=== PATIENT | female | born 1935 | race Caucasian/White ===

== ENCOUNTER → 2016-09-03 | Outpatient (CLI) | payer BC, OTHER ==
[~2016-09-03] MED LIST: GLC5 PO; IBUP-103 PO; PIOG1TAB23 PO; POTA1CAP2 PO; PRAV40TA2 PO; TRIA37.5 PO
[2016-09-03 14:01] LABS: ESTIMATED AVERAGE GLUCOSE 131 mg/dl; HA1C FLAG Normal (Normal)
[2016-09-03 16:33] LABS: ALT/SGPT 17 U/L (12-78); BLOOD UREA NITROGEN 25 mg/dl (7-18); BUN/CREATININE RATIO 20.5 (10-20); CALCIUM 9.4 mg/dl (8.5-10.1); CARBON DIOXIDE 27 mmol/L (21-32); CHLORIDE 105 mmol/L (98-107); CHOLESTEROL 170 mg/dl (0-200); GLUCOSE 118 mg/dl (70-99); POTASSIUM 3.7 mmol/L (3.5-5.1); SODIUM 142 mmol/L (136-145); TRIGLYCERIDES 98 mg/dl (0-150); VERY LOW DENSITY LIPOPROT CALC 20 mg/dl
[2016-09-03 16:38] LABS: ALB/GLOB RATIO 1.1 (0.9-2); ALKALINE PHOSPHATASE 47 U/L (45-117); AST/SGOT 14 U/L (15-37); CHOLESTEROL/HDL RATIO 2.4; HDL CHOLESTEROL 72 mg/dl
[2016-09-03 17:58] LABS: RATIO 13.8 mcg/mg (0-30.0)
== END | disposition home or self-care (01) ==
LOC: C.LABSPEC 12:34
PROVIDERS: ATTEND Internal Medicine
DX: I10 Essential (primary) hypertension (principal); E78.5 Hyperlipidemia, unspecified; E11.9 Type 2 diabetes mellitus without complications; E03.9 Hypothyroidism, unspecified; E55.9 Vitamin D deficiency, unspecified

== ENCOUNTER → 2016-09-04 | Outpatient (CLI) | payer BC, OTHER | END | disposition home or self-care (01) | LOC: C.LABSPEC 12:29 | PROVIDERS: ATTEND Internal Medicine | DX: Z12.11 Encounter for screening for malignant neoplasm of colon (principal) ==

== ENCOUNTER → 2017-03-04 | Outpatient (CLI) | payer BC, OTHER ==
[2017-03-04 13:53] LABS: BLOOD UREA NITROGEN 26 mg/dl (7-18); BUN/CREATININE RATIO 21.3 (10-20); CALCIUM 9.2 mg/dl (8.5-10.1); CARBON DIOXIDE 28 mmol/L (21-32); CHLORIDE 106 mmol/L (98-107); CHOLESTEROL 172 mg/dl (0-200); GLUCOSE 84 mg/dl (70-99); SODIUM 140 mmol/L (136-145)
[2017-03-04 13:57] LABS: CHOLESTEROL/HDL RATIO 2.6; HDL CHOLESTEROL 67 mg/dl; TRIGLYCERIDES 89 mg/dl (0-150); VERY LOW DENSITY LIPOPROT CALC 18 mg/dl
[2017-03-04 14:04] LABS: ESTIMATED AVERAGE GLUCOSE 128 mg/dl; HA1C FLAG Normal (Normal)
== END | disposition home or self-care (01) ==
LOC: C.LABSPEC 12:18
PROVIDERS: ATTEND Internal Medicine
DX: E11.9 Type 2 diabetes mellitus without complications (principal); E78.5 Hyperlipidemia, unspecified; I10 Essential (primary) hypertension

== ENCOUNTER → 2017-06-21 | Outpatient (CLI) | payer BC, OTHER ==
--- NOTE | 2017-06-21 15:38 | MAMMOGRAPHY REPORT ---
BILATERAL DIGITAL SCREENING MAMMOGRAM WITH CAD: 06/21/2017 CLINICAL HISTORY: Routine screening. Patient has no complaints. TECHNIQUE: Current study was also evaluated with a Computer Aided Detection (CAD) system. Bilateral CC and MLO views were obtained. COMPARISON: Comparison is made to exams dated: 06/18/2016 mammogram, 06/16/2015 mammogram, 04/19/2014 mammogram, 04/17/2013 mammogram, 04/16/2012 mammogram, and 04/11/2011 mammogram - [facility]. BREAST COMPOSITION: There are scattered areas of fibroglandular density in both breasts. FINDINGS: No suspicious masses, calcifications, or areas of architectural distortion are noted in ei ther breast. There has been no significant interval change compared to prior exams. Bilateral benign -appearing calcifications are not significantly changed. IMPRESSION: ACR BI-RADS CATEGORY 2: BENIGN There is no mammographic evidence of malignancy. A 1 year screening mammogram is recommended. The pa tient will receive written notification of the results. Approximately 10% of breast cancers are not detected with mammography. A negative mammographic report should not delay biopsy if a clinically suggestive mass is present. Tea Petersen M.D. /:06/21/2017 12:07:20 Social Professionals: Lisseth RODRIGUEZ(Louie)([place])([place]), [facility] letter sent: Normal 1/2 BI-RADS Code: ACR BI-RADS Category 2: Benign
== END | disposition home or self-care (01) ==
LOC: C.MAMM 09:52
PROVIDERS: ATTEND Internal Medicine
DX: Z12.31 Encounter for screening mammogram for malignant neoplasm of breast (principal)

== ENCOUNTER → 2017-09-04 | Outpatient (CLI) | payer BC, OTHER ==
[2017-09-18 15:34] LABS: FECAL OCCULT BLOOD #1 NEGATIVE (NEGATIVE); FECAL OCCULT BLOOD #2 NEGATIVE (NEGATIVE); FECAL OCCULT BLOOD #3 NEGATIVE (NEGATIVE)
== END | disposition home or self-care (01) ==
LOC: C.LABSPEC 15:08
PROVIDERS: ATTEND Internal Medicine
DX: Z12.11 Encounter for screening for malignant neoplasm of colon (principal)

== ENCOUNTER → 2017-09-04 | Outpatient (CLI) | payer BC, OTHER ==
[2017-09-04 13:16] LABS: BASO % 0.3 %; BASO ABS # 0.02 K/uL (0-0.2); EOS % 1.9 %; EOS ABS # 0.13 K/uL (0-0.5); HEMATOCRIT 39.2 % (37-47); HEMOGLOBIN 12.7 g/dL (12.0-16.0); IG# 0.02 K/uL (0.00-0.02); LYMPH % 26.6 %; MEAN CELL VOLUME 93.3 fL (80-100); MEAN CORPUSCULAR HEMOGLOBIN 30.2 pg (25-34); MEAN CORPUSCULAR HGB CONC 32.4 g/dl (32-36); MEAN PLATELET VOLUME 10.5 fL (7.4-10.4); MONO % 8.7 %; MONO ABS # 0.59 K/uL (0.11-0.59); NEUT % 62.2 %; NEUT ABS # 4.21 K/uL (1.4-6.5); PLATELET COUNT 225 K/uL (130-400); RED CELL DISTRIBUTION WIDTH CV 15.1 % (11.5-14.5); RED CELL DISTRIBUTION WIDTH SD 51.9 fL (36.4-46.3); WHITE BLOOD COUNT 6.77 K/uL (4.8-10.8)
[2017-09-04 13:17] LABS: HEMOGLOBIN A1C 5.9 % (4.5-5.6)
[2017-09-04 13:49] LABS: ALBUMIN 3.7 gm/dl (3.4-5.0); ALT/SGPT 17 U/L (12-78); AST/SGOT 16 U/L (15-37); BLOOD UREA NITROGEN 22 mg/dl (7-18); CALCIUM 9.3 mg/dl (8.5-10.1); CARBON DIOXIDE 28 mmol/L (21-32); CHOLESTEROL 169 mg/dl (0-200); CREATININE 1.21 mg/dl (0.60-1.20); GLUCOSE 107 mg/dl (70-99); POTASSIUM 3.6 mmol/L (3.5-5.1); SODIUM 139 mmol/L (136-145)
[2017-09-04 13:57] LABS: ALKALINE PHOSPHATASE 47 U/L (45-117); LDL CHOLESTEROL (DIRECT) 91 mg/dl; TOTAL PROTEIN 7.6 gm/dl (6.4-8.2)
--- NOTE | 2017-09-11 10:24 | CODING QUERY NO DIAGNOSIS ---
: 1935 TREATMENT RENDERED WITHOUT A DIAGNOSIS To promote full compliance with coding requirements relating to patient care, physician participation is requested in all cases of region manager uncertainty. Please assist us with providing a diagnosis/symptom for the test(s) below: A diagnosis/symptom was not documented on your Order. A valid diagnosis/symptom is required to bill all insurances. Please remember that we are unable to code a diagnosis of rule out, probable, possible, questionable, or suspected. Tests that require a diagnosis: DOS: 09/04/17 * HEMOGLOBIN A1C DIAGNOSIS: * COMPREHENSIVE METABOLIC PANEL DIAGNOSIS: * LDL DIRECT DIAGNOSIS: * LIPID PROFILE FASTING DIAGNOSIS: * T4 FREE DIAGNOSIS: * THYROID STIMULATING HORMONE DIAGNOSIS: * CBC WITH AUTO DIFFERENTIAL DIAGNOSIS: * MICROALBUMIN/CREAT RATIO DIAGNOSIS: Provider Signature: Date: Thank you Lorena Ivory [employer] Information Management Once completed, please kindly fax back to [phone] For questions please call [phone]
== END | disposition home or self-care (01) ==
LOC: C.LABSPEC 12:26
PROVIDERS: ATTEND Internal Medicine
DX: E11.9 Type 2 diabetes mellitus without complications (principal); I10 Essential (primary) hypertension; E78.5 Hyperlipidemia, unspecified; E03.9 Hypothyroidism, unspecified

== ENCOUNTER → 2018-03-04 | Outpatient (CLI) | payer BC, OTHER ==
[2018-03-04 16:06] LABS: BLOOD UREA NITROGEN 24 mg/dl (7-18); CALCIUM 9.6 mg/dl (8.5-10.1); CARBON DIOXIDE 28 mmol/L (21-32); CHOLESTEROL 158 mg/dl (0-200); CREATININE 1.12 mg/dl (0.60-1.20); GLUCOSE 77 mg/dl (70-99); LDL CHOLESTEROL CALCULATED 76 mg/dl; POTASSIUM 3.8 mmol/L (3.5-5.1); SODIUM 139 mmol/L (136-145)
[2018-03-05 07:24] LABS: HEMOGLOBIN A1C 6.3 % (4.5-5.6)
== END | disposition home or self-care (01) ==
LOC: C.LABSPEC 10:30
PROVIDERS: ATTEND Internal Medicine
DX: I10 Essential (primary) hypertension (principal); E11.9 Type 2 diabetes mellitus without complications; E78.5 Hyperlipidemia, unspecified; E03.9 Hypothyroidism, unspecified

== ENCOUNTER 2023-08-25 14:34 | Inpatient (IN) ==
--- OUTSIDE RECORDS SUMMARY | 2023-08-25 14:39 | External Medical Summary | Continuity of Care Document ---
Author Name Unknown Organization [facility] [address] [facility] Address [address] [place], [place] [id number] Care Team Providers Care Poultry Inspector Name Role Phone Lisseth Mensah Primary Care Physician [id number] [id number] Date(s): 03/01/23 - 03/01/23 [facility] [address], [address] [place] [address] [phone] Encounter Diagnosis Type 2 diabetes, HbA1C goal < 8%(Discharge Diagnosis) - 03/01/23 Chronic kidney disease, stage 3a(Discharge Diagnosis) - 03/01/23 HTN (hypertension)(Discharge Diagnosis) - 03/01/23 Chronic constipation(Discharge Diagnosis) - 03/01/23 Adult hypothyroidism(Discharge Diagnosis) - 03/01/23 Hypothyroidism, unspecified(Final) - Discharge Disposition: Home or Self Care Attending Physician: MD Mensah Amy L Referring Physician: MD Mensah Amy L Allergies, Adverse Reactions, Alerts Substance Reaction Severity Status meclizine EXTREME DROWZINESS Active Assessment and Plan Extracted from: Title:Office Visit Note Author:MD Mensah Amy L D ate:03/01/23 1.Type 2 diabetes, HbA1C g oal < 8% Status : chronic, well-controlled. Data : diet & glucometers reviewed. Goal : maintain normal blood sugars. Plan : reviewed her [id number] was 6.8% & we discussed that our goal is to keep it under 8%.Continue same meds, for now, to avoid making too many changes at once. However, consider getting her off of glitazone at some point. 2.Adult hypothyroidism Status : chronic, stable. Data : sx reviewed. Goal : maintain euthyroid state. Plan : her dose was increased, based on lastTSH being too high. She is now [id number] dose, will recheck TSH &adjust meds further, if necessary. 3.HTN (hypertension) Status : chronic, uncontrolled. Data : BP readings reviewed. Goal : maintain normal BP. Plan : unclear why pt did not take her morning dose of herBP meds. Her BP did come down slightly during her visit. Urged her to take her BP meds faithfully every morning. Return in 3 months for recheck. 4.Chronic constipation STATUS : chronic, stable. DATA : hx & exam reviewed. GOAL : restore normal stooling pattern. PLAN: discussed chronic constipation & reassured that color changes are unlikely to be of concern. Continue high fiber diet to try to drink more water. 5.Chronic kidney disease, stage 3a STATUS: Chronic, renal functionrelatively stable. DATA: hx & labs reviewed. GOAL: Maintain renal stability. PLAN: Cont to encourage drinking fluids & current lab monitoring. Return in 3 months. Time:Total time spent with this patient on day of evaluation including chart review, ordering, education and coordination of care elements: _37 minutes Immunizations Given and Recorded Vaccine Date Status Refusal Reason influenza virus vaccine, inactivated 07/13/22 Give n pneumococcal 20-valent conjugate vaccine 07/13/22 Given Medications aspirin 81 mg oral tablet Start: 04/18/18 14:21:00 EDT, 1 tab, PO, Daily Start Date: 04/18/18 Status: Ordered docusate sodium 100 mg oral capsule Start: 10/29/22 15:55:00 EDT, 1 cap, PO, bid, Disp# 180 cap, Refills: 1, PRN: as needed for constipation, [facility]acy: [id number] Start Date: 10/29/22 Status: Ordered glipiZIDE 2.5 mg oral tablet, extended release Start: 10/31/22 17:15:00 EDT, 1 tab, PO, Daily, Disp# 90 tab, Refills: 3, [facility]: [id number] Start Date: 10/31/22 Status: Ordered hydroCHLOROthiazide-triamterene 25 mg-37.5 mg oral capsule Start: 12/11/22 17:17:00 EDT, See Instructions, Disp# 90 cap, Refills: 1, take 1 capsule by mouth once daily, Pharmacy: [facility] #[id number] Start Date: 12/11/22 Status: Ordered levothyroxine 88 mcg (0.088 mg) oral tablet Start: 02/28/23 10:43:00 EDT, 1 tab, PO, Daily, Disp# 90 tab, Refills: 0, Pharmacy: [facility] #[id number] Start Date: 02/28/23 Stop Date: 05/29/23 Status: Ordered meclizine 12.5 mg oral tablet Start: 10/29/22 16:04:00 EDT, 1 tab, PO, tid, Disp# 60 tab, Refills: 1, PRN: as needed for dizziness, Pharmacy: [facility] #[id number] Start Date: 10/29/22 Status: Ordered Metoprolol Tartrate 50 mg oral tablet Start: 05/24/22 19:39:00 EDT, 1 tab, PO, bid, Disp# 180 tab, Refills: 1, Pharmacy: [facility] #[id number] Start Date: 05/24/22 Status: Ordered multivitamin Start: 04/18/18 14:22:00 EDT, 1 tab, PO, Daily Start Date: 04/18/18 Status: Ordered pioglitazone 30 mg oral tablet Start: 02/20/23 13:57:00 EDT, 1 tab, PO, Daily, Disp# 30 tab, Refills: 3, Pharmacy: [facility] #[id number] Start Date: 02/20/23 Status: Ordered potassium chloride 10 mEq oral capsule, extended release Start: 07/04/22 10:49:00 EST, 2 cap, PO, Daily, Disp# 180 cap, Refills: 1, Pharmacy: [facility] #[id number] Start Date: 07/04/22 Status: Ordered pravastatin 40 mg oral tablet Start: 09/12/22 16:54:00 EST, 1 tab, PO, Daily, Disp# 90 tab, Refills: 3, Pharmacy: [facility] #[id number] Start Date: 09/12/22 Status: Ordered timolol maleate 0.25% ophthalmic solution Start: 04/18/18 14:21:00 EDT, 1 drop, both eyes, Daily Start Date: 04/18/18 Status: Ordered Mental Status 03/01/23 Barriers to Learning one year None evide nt Mandatory Health Literacy Documentation Yes Health Literacy Communication Barriers N ever Primary Language Georgian Problem List Condition Confirmation Course Effective Dates Status Health St atus Informant Caregiver stress Confirmed Active Chronic constipation Confirmed Active Chronic kidney disease, stage 3a 1 Confirmed Active Dizziness Confirmed Active Dyslipidemia Confirmed Active Dysphagia Confirmed Active History of urinary incontinence Confirmed Active HTN (hypertension) Confirmed Active Abnormal mammogram Confirmed Active Diabetic neuropathy Confirmed Active Annual physical exam Confirmed Active Skin lesion Confirmed Active Type 2 diabetes, HbA1C goal < 8% Confirmed Active Cret 1.14/eGFR 47; 04/16/22 Cret 1.00/eGFR 51 Diagnosis Diagnosis Type Effective Dates Health Status Clinical Service Informant Chronic kidney disease, stage 3a Discharge Diagnosis 03/01/23 Type 2 diabetes, HbA1C goal < 8% Discharge Diagnosis 03/01/23 HTN (hypertension) Discharge Diagnosis 03/01/23 Chronic constipation Discharge Diagnosis 03/01/23 Adult hypothyroidism Discharge Diagnosis 03/01/23 Non-Specified Procedures Procedure Date Related Diagnosis Body Site Status Mammogram 1 10/24/22 Completed Mohs surgery 2 05/08/22 Completed Mammogram 3 04/25/22 Completed Videofluoroscopy swallow 4 04/17/22 Completed Diagnostic mammogram 5 04/06/22 Co mpleted Mammogram 6 02/15/22 Completed Colonoscopy 7 12/12/[address] [place] [address] Impression: ACR BI-RADS CATEGORY 3: PROBABLY BENIGN 1. A 6.7 mm focal asymmetry in the 6:00 right breast is stable to possibly slightly decreased compared to the 04/25/2022 mammograms, suggesting benignity. Because this is positional, another close follow-up right diagnostic tomosynthesis mammogram and possible ultrasound is recommended to ensure longer stability. Annual left mammography will also be due at the time of next follow-up. 2BCC 3IMPRESSION: ACR BI-RADS CATEGORY 3: PROBABLY BENIGN ULTRASOUND ACR BI-RADS CATEGORY 3: PROBABLY BENIGN PREVIOUSLY DISCRIBE IRREGULAR 5 MM HYPOECHOIX MADD IN THE RIGHT 5:30 BREAST ON THE ULTRASOUND IS NOT EVEDENT ON THE CURRENT EXAM AND THEREFORE BIOPSY WAS NOT PROFORMED . THE MAMMOGRAPHIC FOCAL ASYMMETRY IN THE RIGHT 6:00 BREAST IMAGINING [id number]- DOES NOT APPEAR SIGHIFCANTLY CHANGED COMPARE TO 02/15/22PROBABLY BENIGN AND MAY REPRESENT OCCULT CUST . FOLLOW UP IN 6 MONTHS 41. No aspiration identified. Mild esophageal dysmotility. 2. Please see the speech pathologist report for detailed findings and recommendations. 5Irregular hypoechoic 5mm mass in the right 5:30 periareolar breast on ultrasound, which may correspond with an ovoid asymmetry seen mammographically. The findings is indeterminate and ultrasound guided core needle biopsy is recommended for further evaluation, with post clip mammograms to evaluate for mammogrphic sonographic concordance. 6Right breast focal asymmetry, for which additional imaging evaluation is recommended. The patient gino be called to schedule an appointment. 7Impression: One 3 mm polyp in the cecum, removed with a cold biopsy forceps. Resected and retrieved. Diverticulosis in the sigmoid colon and in the ascending colon. Non-bleeding hemorrhoids. Results Laboratory List Name Date Thyroid Stimulating Hormone (TSH) 3 Most recent to oldest [Reference Range]: 1 TSH [0.47-4.68 uIU/mL] <0.01 uIU/mL 1 *LOW* (03/01/23 11:30 AM) 1Result Comment: CHECKED Testing Performed By: Dept of Pathology [facility] [address], [address], [place] [address] Vital Signs Most recent to oldest [Reference Range]: 1 Patient Weight 60.4 kg (03/01/23 10:52 AM) Heart Rate 74 bpm (03/01/23 10:52 AM) Respiratory Rate 20 br/min (03/01/23 10:52 AM) Blood Pressure 206/74mmHg (03/01/23 10:52 AM) Cuff Pulse Pressure 132 mmHg (03/01/23 10:52 AM) BP Location # 1 Left Arm, Manual (03/01/23 10:52 AM) Social History Social History Type Response Smoking Status Never smoked cigaret zion Sex Female Primary care Note * MD Makenna, Lisseth Duffy: PERFORM Event Display: [facility] Outpt Note Authored Date: Chief Complaint Routine visit History of Present Illness Here for recheck offollowing concerns : 1)Type 2 DM - BS range from 105-300. Has had low BS, but not for a long time. She doesn't think that she feels any different with the change in her diabetic med. She thinks that she is takingit every day now. 2) HTN - she has not taken any of herBP meds today yet.She doesn't knowwhy she did not take them. 3) Chronic constipation - this continues, but her concern is that her stools are sometimes yellowish or greenish. 4) Hypothyroidism - she doesn't notice any change in her energy level with increasing her thyroid med. She doesn't think that her weight has changed. Review of Systems Review of Systems- Constitutional: no fatigue or changes in weight. HEENT: no vision changes, or sinus congestion. Respiratory: no cough, SOB, or wheezing. Cardiac: no chest pain, palpitations or pedal edema. GI: no abdominal pain or vomiting, ?change in bowel habits? Neurologic: no headaches. Physical Exam Vitals & Measurements HR:74(Monitored) RR:20 BP:206/74 SpO2:98% WT:60.4kg WT:60.400kg(Dosing) PHQ2 Data(Data Documented on:03/01/2023 10:52) Emotional health assessment NEGATIVE PE : Alert, in NAD. HEENT - PERRL. TM's - normal. Nares - clear. Oropharynx - normal. Neck - supple, without thyromegaly or lymphadenopathy. Lungs - clear, with good breath sounds bilaterally. Heart - RRR without murmur. No pedal edema. Abdomen - +BS, soft, NT without HSM or mass. Neuro - alert & oriented, speech & cognition normal. Skin - warm & dry. Psych - affect appropriate. Assessment/Plan 1.Type 2 diabetes, HbA1C goal < 8% Status : chronic, well-controlled. Data : diet & glucometers reviewed. Goal : maintain normal blood sugars. Plan : reviewed her [id number] was 6.8% & we discussed that our goal is to keep it under 8%.Continue same meds, for now, to avoid making too many changes at once. However, consider getting her off of glitazone at some point. 2.Adult hypothyroidism Status : chronic, stable. Data : sx reviewed. Goal : maintain euthyroid state. Plan : her dose was increased, based on lastTSH being too high. She is now [id number] dose, will recheck TSH &adjust meds further, if necessary. 3.HTN (hypertension) Status : chronic, uncontrolled. Data : BP readings reviewed. Goal : maintain normal BP. Plan : unclear why pt did not take her morning dose of herBP meds. Her BP did come down slightly during her visit. Urged her to take her BP meds faithfully every morning. Return in 3 months for recheck. 4.Chronic constipation STATUS : chronic, stable. DATA : hx & exam reviewed. GOAL : restore normal stooling pattern. PLAN: discussed chronic constipation & reassured that color changes are unlikely to be of concern. Continue high fiber diet to try to drink more water. 5.Chronic kidney disease, stage 3a STATUS: Chronic, renal functionrelatively stable. DATA: hx & labs reviewed. GOAL: Maintain renal stability. PLAN: Cont to encourage drinking fluids & current lab monitoring. Return in 3 months. Time:Total time spent with this patient on day of evaluation including chart review, ordering, education and coordination of care elements: _37 minutes Problem List/Past Medical History Ongoing Abnormal mammogram Annual physical exam Caregiver stress Chronic constipation Chronic kidney disease, stage 3a Diabetic neuropathy Dizziness Dyslipidemia Dysphagia History of urinary incontinence HTN (hypertension) Skin lesion Type 2 diabetes, HbA1C goal < 8% Historical Diabetes Procedure/Surgical History Mammogram (10/24/2022)Mohs surgery (05/08/2022)Mammogram (04/25/2022)Videofluoroscopy swallow (04/17/2022)Diagnostic mammogram (04/06/2022)Mammogram (02/15/2022)Colonoscopy (12/12/2020) Medications aspirin(aspirin 81 mg oral tablet), 81 mg= 1 tab, PO, Daily docusate(docusate sodium 100 mg oral capsule), 100 mg= 1 cap, PO, bid, PRN, 1 refills glipiZIDE(glipiZIDE 2.5 mg oral tablet, extended release), 2.5 mg= 1 tab, PO, Daily, 3 refills hydroCHLOROthiazide-triamterene(hydroCHLOROthiazide-triamterene 25 mg-37.5 mg oral capsule), See Instructions levothyroxine(levothyroxine 88 mcg (0.088 mg) oral tablet), 88 mcg= 1 tab, PO, Daily meclizine(meclizine 12.5 mg oral tablet), 12.5 mg= 1 tab, PO, tid, PRN, 1 refills metoprolol(Metoprolol Tartrate 50 mg oral tablet), 50 mg= 1 tab, PO, bid, 1 refills multivitamin, 1 tab, PO, Daily pioglitazone(pioglitazone 30 mg oral tablet), 30 mg= 1 tab, PO, Daily, 3 refills potassium chloride(potassium chloride 10 mEq oral capsule, extended release), 20 mEq= 2 cap, PO, Daily, 1 refills pravastatin(pravastatin 40 mg oral tablet), 40 mg= 1 tab, PO, Daily, 3 refills timolol ophthalmic(timolol maleate 0.25% ophthalmic solution), 1 drop, both eyes, Daily Allergies meclizineEXTREME DROWZINESS Social History Smoking Status Never smoked cigarettes Family History Family history is unknown Immunizations Vaccine Date Status influenza virus vaccine, inactivated 07/13/2022 Given pneumococcal 20-valent conjugate vaccine 07/13/2022 Given Recommendations Health Maintenance Pending(in the next year) Due Adult Influenza Vaccine due02/02/23and every 1year Adult COVID-19 Vaccination due03/01/23Unknown Frequency Adult Tdap/Td Vaccine due03/01/23Unknown Frequency Medicare Annual Wellness Visit due03/01/23and every 1year Shingles Vaccine due03/01/23One-time only Due In Future Diabetic Eye Exam not due until06/12/23and every 1year Diabetes Management A1c not due until10/29/23and every 1year Body Mass Index not due until02/29/24and every 1year Satisfied(in the past 1 year) Satisfied Body Mass Index on07/13/22.Satisfied by AVTAR Lobo Cassidy Breast Cancer Screening on10/25/22.Satisfied by NELDA Cardoza Andrew E Diabetes Management A1c on10/29/22.Satisfied by [employer], Clinical Ink Lipid Screening on04/13/22.Satisfied by NELDA Marie Karli R Pneumococcal Vaccine Older Adults on07/13/22.Satisfied by NELDA Hobson Kim Electronic Signature on File Electronically Reviewed/Signed by: Lisseth Mensah MD Author Signature Dt/Tm:03/01/2023 12:50 PM Checkering Machine Adjuster [facility] [address] [place] [address] [facility] Patient Care team information Care Team Personnel Name: MD Makenna, Lisseth Duffy Position: Physician - Family Med Member Role: Primary Care Provider Address: Address: [address] [place] [id number] [place]
--- OUTSIDE RECORDS SUMMARY | 2023-08-25 14:39 | External Medical Summary | Continuity of Care Document ---
Author Name Unknown Organization [facility] [address] Address [address] [place], [place] [id number] Care Team Providers Care Business Resiliency Manager Name Role Phone Lisseth Mensah Primary Care Physician [phone] Encounter [facility] [id number] Date(s): 06/05/23 - 06/05/23 [facility] [address], [address] [place] [address] [phone] Encounter Diagnosis Type 2 diabetes mellitus without complications(Final) - Hypothyroidism, unspecified(Final) - Adult hypothyroidism(Discharge Diagnosis) - 06/05/23 Polypharmacy(Discharge Diagnosis) - 06/05/23 Caregiver stress(Discharge Diagnosis) - 06/04/23 HTN (hypertension)(Discharge Diagnosis) - 06/04/23 Type 2 diabetes, HbA1C goal < 8%(Discharge Diagnosis) - 06/04/23 Discharge Disposition: Home or Self Care Attending Physician: MD Mensah Amy L Allergies, Adverse Reactions, Alerts Substance Reaction Severity Status meclizine EXTREME DROWZINESS Active Assessment and Plan Extracted from: Title:Office Visit Note Author:MD Mensah Amy L D ate:06/05/23 1.HTN (hypertension) Status : chronic, uncontrolled. Data : BP readings reviewed. Goal : maintain normal BP. Plan : is of concern that her BP fluctuates so dramatically, tho she seems unaware of this. Last visit showed BP quite high, but she admitted that she had not taken her BP meds for unclear reasons. Today, her BP is verging on hypotension. External chart review shows that she fills her prescriptions very irregularly, though she denies this. Will decrease dose of Metoprolol from 50mg BID to 25mg BID. 2.Adult hypothyroidism Status : chronic, not stable. Data : sx & labs reviewed. Goal : maintain euthyroid state. Plan : of concern that her TSH also fluctuates dramatically. Will recheckTSH, & try to adjust meds accordingly. 3.Type 2 diabetes, HbA1C goal < 8% Status : chronic, controlled. Data : dietreviewed. Goal : maintain normal blood sugars. Plan : herA1C's have been consistently below 7%, with our goal being under 8%. Will stop Pioglitazone, continue decrease dose of Glipizide. Recheck A1C, may be able to stop latter, to simplify meds. 4.Polypharmacy Discussed at length. She feels that she is taking all meds consistently & correctly. This does not match with external med review. Will have her bring in all of her pill bottles, so that we can verify what she is taking & how. 5.Caregiver stress This is much improved. Return in 3-4 months Time:Total time spent with this patient on day of evaluation including chart review, ordering, education and coordination of care elements: 35_ minutes Immunizations Given and Recorded Vaccine Date Status Refusal Reason influenza virus vaccine, inactivated 07/13/22 Give n pneumococcal 20-valent conjugate vaccine 07/13/22 Given Medications aspirin 81 mg oral tablet Start: 04/18/18 14:21:00 EDT, 1 tab, PO, Daily Start Date: 04/18/18 Status: Ordered glipiZIDE 2.5 mg oral tablet, extended release Start: 10/31/22 17:15:00 EDT, 1 tab, PO, Daily, Disp# 90 tab, Refills: 3, Pharmacy: [facility] #[id number] Start Date: 10/31/22 Status: Ordered hydroCHLOROthiazide-triamterene 25 mg-37.5 mg oral capsule Start: 06/04/23 16:04:00 EDT, 1 cap, PO, Daily, Disp# 90 cap, Refills: 1, Pharmacy: [facility] #[id number] Start Date: 06/04/23 Status: Ordered levothyroxine 75 mcg (0.075 mg) oral tablet Start: 03/11/23 16:51:00 EDT, See Instructions, Disp# 15 tab, Refills: 6, 1 tab PO every other day,other Start Date: 03/11/23 Status: Ordered levothyroxine 88 mcg (0.088 mg) oral tablet Start: 02/28/23 10:43:00 EDT, See Instructions, Disp# 15 tab, Refills: 0, 1 tab PO every other day,Pharmacy: [facility] #[id number] Start Date: 02/28/23 Status: Ordered Metoprolol Tartrate 25 mg oral tablet Start: 06/07/23 12:16:00 EDT, 1 tab, PO, bid, Disp# 180 tab, Refills: 3, Pharmacy: [facility] #[id number] Start Date: 06/07/23 Status: Ordered multivitamin Start: 04/18/18 14:22:00 EDT, 1 tab, PO, Daily Start Date: 04/18/18 Status: Ordered potassium chloride 10 mEq oral capsule, extended release Start: 03/27/23 21:09:00 EDT, See Instructions, Disp# 180 cap, Refills: 6, take 2 capsules by mouthonce daily, Pharmacy: [facility] #[id number] Start Date: 03/27/23 Status: Ordered pravastatin 40 mg oral tablet Start: 09/12/22 16:54:00 EST, 1 tab, PO, Daily, Disp# 90 tab, Refills: 3, Pharmacy: [facility] #[id number] Start Date: 09/12/22 Status: Ordered RA COL-RITE 100 MG CAPSULE Start: 05/23/23 19:43:00 EDT, RA COL-RITE 100 MG CAPSULE, 1 cap, PO, bid, Disp# 180 cap, Refills: 1, PRN: if needed for constipation, Pharmacy [facility] #[id number] Start Date: 05/23/23 Status: Ordered timolol maleate 0.25% ophthalmic solution Start: 04/18/18 14:21:00 EDT, 1 drop, both eyes, Daily Start Date: 04/18/18 Status: Ordered Mental Status 06/05/23 Barriers to Learning one year None evide nt Mandatory Health Literacy Documentation Yes Health Literacy Communication Barriers N ever Primary Language Kyrgyz Problem List Condition Confirmation Course Effective Dates Status H ealth Status Informant Caregiver stress Confirmed Active Chronic constipation Confirmed Active Chronic kidney disease, stage 3a 1 Confirmed Active Dizziness Confirmed Active Dyslipidemia Confirmed Active Dysphagia Confirmed Active History of urinary incontinence Confirmed Active HTN (hypertension) Confirmed Active Adult hypothyroidism Confirmed Active Abnormal mammogram Confirmed Active Diabetic neuropathy Confirmed Active Annual physical exam Confirmed Active Polypharmacy Confirmed Active Skin lesion Confirmed Active Type 2 diabetes, HbA1C goal < 8% Confirmed Active Cret 1.14/eGFR 47; 04/16/22 Cret 1.00/eGFR 51 Diagnosis Diagnosis Type Effective Dates Health Status Clinical Service Informant Caregiver stress Discharge Diagnosis 06/04/23 HTN (hypertension) Discharge Diagnosis 06/04/23 Type 2 diabetes, HbA1C goal < 8% Discharge Diagnosis 06/04/23 Adult hypothyroidism Discharge Diagnosis 06/05/23 Non-Specified Polypharmacy Discharge Diagnosis 06/05/23 Non-Specified Procedures Procedure Date Related Diagnosis Body Site Status Mammogram 1 04/30/23 Completed Mammogram 2 10/24/22 Completed Mohs surgery 3 05/08/22 Completed Mammogram 4 04/25/22 Completed Videofluoroscopy swallow 5 04/17/22 Completed Diagnostic mammogram 6 04/06/22 Co mpleted Mammogram 7 02/15/22 Completed Colonoscopy 8 12/12/20 Completed 1IMPRESSION ACR-Bl-RADS CATEGORY 3 PROBABLY BENIGN, ULTRASOUND ACR-Bl-RADS CATEGORY 3 PROBABLY BENIGN 1 A focal asymmetry is no longer seen in the 6 00 right breast, confirming benignity No mammographic evidence of malignancy in the right breast 2 Increasingly conspicuous focal asymmetry in the 3 00posterior left breast mammographically, with corresponding benign-appearing round and oval subcentimeter masses in the left 3 00 breast, 7 cm from the nipple, on ultrasound A 6-month close follow-up [address] [place] [address] Impression: ACR BI-RADS CATEGORY 3: PROBABLY BENIGN [...] due at the time of next follow-up. 3BCC 4IMPRESSION: ACR BI-RADS CATEGORY 3: PROBABLY BENIGN ULTRASOUND ACR BI-RADS CATEGORY 3: PROBABLY BENIGN PREVIOUSLY DISCRIBE IRREGULAR 5 MM HYPOECHOIX MADD IN THE RIGHT 5:30 BREAST ON THE ULTRASOUND IS NOT EVEDENT ON THE CURRENT EXAM AND THEREFORE BIOPSY WAS NOT PROFORMED . THE MAMMOGRAPHIC FOCAL ASYMMETRY IN THE RIGHT 6:00 BREAST IMAGINING [id number]- DOES NOT APPEAR SIGHIFCANTLY CHANGED COMPARE TO 02/15/22PROBABLY BENIGN AND MAY REPRESENT OCCULT CUST . FOLLOW UP IN 6 MONTHS 51. No aspiration identified. Mild esophageal dysmotility. 2. Please see the speech pathologist report for detailed findings and recommendations. 6Irregular hypoechoic 5mm mass in the right 5:30 periareolar breast on ultrasound, which may correspond with an ovoid asymmetry seen mammographically. The findings is indeterminate and ultrasound guided core needle biopsy is recommended for further evaluation, with post clip mammograms to evaluate for mammogrphic sonographic concordance. 7Right breast focal asymmetry, for which additional imaging evaluation is recommended. The patient gino be called to schedule an appointment. 8Impression: One 3 mm polyp in the cecum, removed with a cold biopsy forceps. Resected and retrieved. Diverticulosis in the sigmoid colon and in the ascending colon. Non-bleeding hemorrhoids. Results Laboratory List Name Date Hemoglobin A1C (HEMOGLOBIN, A1C) 06/05/23 Thyroid Stimulating Hormone (TSH) 3 Most recent to oldest [Reference Range]: 1 Estimated Average Glucose 140 mg/dL 1 (06/05/23 11:23 AM) HbA1c [4.0-6.0 %] 6.5 % *HI* (06/05/23 11:23 AM) TSH [0.47-4.68 uIU/mL] 0.06 uIU/mL 2 *LOW* (06/05/23 11:23 AM) 1Result Comment: Testing Performed By: Dept of Pathology [facility] [address], [address] [place] [address] 2Result Comment: Testing Performed By: Dept of Pathology [facility] [address], [address] [place] [address] Vital Signs Most recent to oldest [Reference Range]: 1 Patient Weight 59.3 kg (06/05/23 10:32 AM) Heart Rate 50 bpm (06/05/23 10:32 AM) Blood Pressure 92/60mmHg (06/05/23 10:32 AM) Cuff Pulse Pressure 32 mmHg (06/05/23 10:32 AM) BP Location # 1 Left Arm (06/05/23 10:32 AM) Social History Social History Type Response Smoking Status Never smoked cigaret zion Sex Female FCM Outpt Note * MD Makenna, Lisseth Duffy: PERFORM Event Display: [facility] Outpt Note Authored Date: [id number] Chief Complaint follow up, discuss vaccines History of Present Illness Here for recheck offollowing concerns : 1)Anxiety/stress - her biggest stress was worrying about her step-daughter, who was homeless & has a lot of mental health problems. The police got involved & "they took her away." This has resulted in her stress level going down dramatically. She also decided to quit driving, & now her son drives her anywhere that she wants to go. 2) Type 2 DM - she has never done glucometers. No low BS sx. She does try to always eat 3 timesper day, but admits that her appetite has decreased, so she eats smaller portions. 3) Hypothyroidism - she has not noticed feeling any different since her dose of meds were changed. 4) HTN - no problems with any of her meds. She did not feel weak or dizzy with her lower BP today. Review of Systems Review of Systems- Constitutional: no fatigue or changes in weight. HEENT: no vision changes, or sinus congestion. Respiratory: no cough, SOB, or wheezing. Cardiac: no chest pain, palpitations or pedal edema. GI: no abdominal pain or change in bowel habits. : no dysuria. Neurologic: no headaches. Physical Exam Vitals & Measurements HR:50(Monitored) BP:92/60 SpO2:97% WT:59.3kg WT:59.300kg(Dosing) PHQ2 Data(Data Documented on:06/05/2023 10:32) Emotional health assessment NEGATIVE PE : Alert, [...] & dry. Psych - affect appropriate. Assessment/Plan 1.HTN (hypertension) Status : chronic, uncontrolled. Data : BP readings reviewed. Goal : maintain normal BP. Plan : is of concern that her BP fluctuates so dramatically, tho she seems unaware of this. Last visit showed BP quite high, but she admitted that she had not taken her BP meds for unclear reasons. Today, her BP is verging on hypotension. External chart review shows that she fills her prescriptions very irregularly, though she denies this. Will decrease dose of Metoprolol from 50mg BID to25mg BID. 2.Adult hypothyroidism Status : chronic, not stable. Data : sx & labs reviewed. Goal : maintain euthyroid state. Plan : of concern that her TSH also fluctuates dramatically. Will recheckTSH, & try to adjust meds accordingly. 3.Type 2 diabetes, HbA1C goal < 8% Status : chronic, controlled. Data : dietreviewed. Goal : maintain normal blood sugars. Plan : herA1C's have been consistently below 7%, with our goal being under 8%. Will stop Pioglitazone, continue decrease dose of Glipizide. Recheck A1C, may be able to stop latter, to simplify meds. 4.Polypharmacy Discussed at length. She feels that she is taking all meds consistently & correctly. This does not match with external med review. Will have her bring in all of her pill bottles, so that wecan verify what she is taking & how. 5.Caregiver stress This is much improved. Return in 3-4 months Time:Total time spent with this patient on day of evaluation including chart review, ordering, education and coordination of care elements: 35_ minutes Problem List/Past Medical History Ongoing Abnormal mammogram Adult hypothyroidism Annual physical exam Caregiver stress Chronic constipation Chronic kidney disease, stage 3a Diabetic neuropathy Dizziness Dyslipidemia Dysphagia History of urinary incontinence HTN (hypertension) Polypharmacy Skin lesion Type 2 diabetes, HbA1C goal < 8% Historical Diabetes Procedure/Surgical History Mammogram (04/30/2023)Mammogram (10/24/2022)Mohs surgery (05/08/2022)Mammogram (04/25/2022)Videofluoroscopy swallow (04/17/2022)Diagnostic mammogram (04/06/2022)Mammogram ( 022)Colonoscopy (12/12/2020) Medications aspirin(aspirin 81 mg oral tablet), 81 mg= 1 tab, PO, Daily glipiZIDE(glipiZIDE 2.5 mg oral tablet, extended release), 2.5 mg= 1 tab, PO, Daily, 3 refills hydroCHLOROthiazide-triamterene(hydroCHLOROthiazide-triamterene 25 mg-37.5 mg oral capsule), 1 cap,PO, Daily levothyroxine(levothyroxine 88 mcg (0.088 mg) oral tablet), See Instructions levothyroxine(levothyroxine 75 mcg (0.075 mg) oral tablet), See Instructions, 6 refills metoprolol(Metoprolol Tartrate 25 mg oral tablet), 25 mg= 1 tab, PO, bid, 6 refills multivitamin, 1 tab, PO, Daily potassium chloride(potassium chloride 10 mEq oral capsule, extended release), See Instructions pravastatin(pravastatin 40 mg oral tablet), 40 mg= 1 tab, PO, Daily, 3 refills timolol ophthalmic(timolol maleate 0.25% ophthalmic solution), 1 drop, both eyes, Daily unlisted medication(RA COL-RITE 100 MG CAPSULE), 1 cap, PO, bid, PRN Allergies meclizineEXTREME DROWZINESS Social History Smoking Status Never smoked cigarettes Family History Family history is unknown Immunizations Vaccine Date Status influenza virus vaccine, inactivated 07/13/2022 Given pneumococcal 20-valent conjugate vaccine 07/13/2022 Given Recommendations Health Maintenance Pending(in the next year) OverDue Adult Influenza Vaccine due02/02/23and every 1year Due Adult COVID-19 Vaccination due06/05/23Unknown Frequency Adult Tdap/Td Vaccine due06/05/23Unknown Frequency Medicare Annual Wellness Visit due06/05/23and every 1year Shingles Vaccine due06/05/23One-time only Due In Future Diabetic Eye Exam not due until06/13/23and every 366day Body Mass Index not due until06/04/24and every 1year Satisfied(in the past 1 year) Satisfied Body Mass Index on07/13/22.Satisfied by [facility] Lobo Cassidy Breast Cancer Screening on04/30/23.Satisfied by NELDA Hobson Kim Diabetes Management A1c on06/05/23.Satisfied by [employer] Pneumococcal Vaccine Older Adults on07/13/22.Satisfied by NELDA Hobson Kim Electronic Signature on File Electronically Reviewed/Signed by: Lisesth Mensah MD Author Signature Dt/Tm:06/05/2023 07:32 PM [employer] [facility] [address], [address] [place] [address] [facility] Patient Care team information Care Team Personnel Name: MD Makenna, Lisseth Duffy Position: Physician - Family Med Member Role: Primary Care Provider Address: Address: [address] [place] [id number]
--- NOTE | 2023-08-25 14:40 | ED Triage Note ---
Date of Service August 25, 2023 Provider in Triage Author: Isabelle Cooper History of Present Illness This patient was briefly evaluated while in triage. An abbreviated physical exam was performed. This patient is a 88-year-old Female who presents to the ED for evaluation feeling dizzy, nausea, off balance, heart racing x 1 week when she is up and walking around, better when she sits Physical Exam GENERAL: NAD CARDIOVASCULAR: tachycardic 140s RESPIRATORY: CTA NEURO: ambulatory into triage, no gross neuro deficits Initial orders for labs and / or imaging were placed and patient was placed in t he waiting area until a bed is available. Please see further documentation for the full ED course.
[2023-08-25 15:23] LABS: Basophils # (auto) 0.04 K/uL (0.00-0.20); Basophils % (auto) 0.6 %; Eosinophils # (auto) 0.09 K/uL (0.00-0.50); Eosinophils % (auto) 1.3 %; Hemoglobin 13.4 g/dl (12.0-16.0); Immature Granulocytes # (auto) 0.02 K/uL (0.01-0.20); Immature Granulocytes % (auto) 0.3 %; Lymphocytes # (auto) 1.86 K/uL (1.20-3.40); Lymphocytes % (auto) 27.2 %; Mean Corpuscular Hemoglobin 28.5 pg (25.0-34.0); Mean Corpuscular Hgb Conc 32.7 g/dL (32.0-36.0); Mean Corpuscular Volume 87.2 fL (80.0-100.0); Mean Platelet Volume 10.1 fL (9.4-12.4); Monocytes # (auto) 0.62 K/uL (0.11-0.59); Monocytes % (auto) 9.1 %; Neutrophils # (auto) 4.22 K/uL (1.40-6.50); Neutrophils % (auto) 61.5 %; Platelet Count 256 K/uL (130-400); RDW Coefficient of Variation 11.7 % (11.5-14.5); RDW Standard Deviation 37.6 fL (36.4-46.3); White Blood Count 6.85 K/ul (4.8-10.8)
[2023-08-25 15:34] LABS: Alanine Aminotransferase 10 U/L (7-52); Albumin Globulin Ratio 1.4 (0.9-2); Albumin Level 4.1 gm/dl (3.4-5.0); Alkaline Phosphatase 62 U/L (34-104); Anion Gap 10 (3-11); Aspartate Aminotransferase 17 U/L (13-39); BUN Creatinine Ratio 26.1 (10-20); Bilirubin,Total 0.6 mg/dl (0.2-1.0); Blood Urea Nitrogen 24 mg/dl (6-23); Calcium 9.9 mg/dl (8.6-10.3); Carbon Dioxide 26 mmol/L (21-32); Chloride 104 mmol/L (98-107); Est GFR (African American) 64.4 ml/min; Est GFR (Non-African American) 55.6 ml/min; Glucose 189 mg/dl (70-99(Fasting)); Potassium 3.7 mmol/L (3.5-5.1); Sodium 140 mmol/L (136-145); Total Protein 7.1 gm/dl (6.0-8.3)
[2023-08-25 15:41] LABS: Troponin I High Sensitivity 34.1 pg/ml (0-14)
[2023-08-25] MEDS ORDERED: METOPROLOL TARTRATE 1 MG/ML VIAL IV STA (15:46)
[2023-08-25] MEDS ORDERED: POTASSIUM CHLORIDE / WTR 10 MEQ/100 ML PLCT IV ONE (15:48)
[2023-08-25 15:51] LABS: Thyroid Stimulating Hormone < 0.010 uIu/ml (0.300-4.500)
[2023-08-25] MEDS ORDERED: SODIUM CHLORIDE 0.9% 1,000 ML IV SCH (16:00)
[2023-08-25 16:21] LABS: Magnesium 1.8 mg/dl (1.7-2.4)
--- NOTE | 2023-08-25 16:24 | Emergency Department Note ---
Impression & Plan Tachycardia, Orthostasis, Elevated troponin, Hyperthyroidism ED Provider Note NAME: FELECIA WEATHERS AGE: 88 SEX: Female INFORMANT: Patient ED PROVIDER(S): Edward Gonzalez MD CHIEF COMPLAINT: Dizzy PLAN: Disposition: Admitted Outpatient prescription management: none Referral: None MEDICAL DECISION MAKING: Patient presented because of feeling dizziness and heart racing. Workup was initiated. She found to have a sinus tachycardia on monitoring. Her heart rate did fluctuate up to 140. Patient's cardiac troponin is mildly elevated. No ischemia on ECG. Potassium was low normal. Patient was given Lopressor and potassium. Remainder of laboratory testing was unremarkable. Patient has no chest pain. Chest x-ray ordered. Consultation was made with [facility]. Case was discussed with Dr. Mcclain. At that point patient's TSH was very low and her T3 came back very high. This was concerning as a possible cause of the tachycardia. 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 Vital Signs: reviewed and remarkable for tachycardia Additional History obtained from: none Chronic Medical/Social Conditions affecting care: Hypertension Prior/ Outside/ External records reviewed: none Differential Diagnosis: Premature contractions, electrolyte abnormality, cardiac dysrhythmia, thyroid dysfunction, pulmonary embolism, infection, gastrointestinal, as well as other pathologies. Diagnostics, independently interpreted by me: ECG: Twelve-lead ECG reveals sinus tachycardia [address] elevation or depression Cardiac Monitoring: Cardiac monitoring ordered by me: The patient was placed on continuous cardiac monitoring and observed. It revealed sinus tachycardic rhythm at 116 bpm. Medical decision rules: none Imaging studies: Deferred HPI: 88 year old Female arrives for evaluation of dizziness and heart racing. This started about a week ago and is worsening today. The patient also notes the following associated symptoms, occasional nausea. The patient has noted rest as relieving factors. Current pain is rated as 0/10. Pt denies LOC, headache, fevers, chills, diaphoresis, visual changes, neck pain, chest pain, breathing difficulties, vomiting, abdominal pain, back pain, melena, hematochezia, urinary symptoms, numbness, weakness, lymphadenopathy, rash, or other complaints. PAST MEDICAL HISTORY: See Below, hypertension PAST SURGICAL HISTORY: See Below, SOCIAL HISTORY: See Below, retired HOME MEDICATIONS: See Below ALLERGIES: See Below VITALS: See Below PHYSICAL EXAMINATION: GENERAL: Awake, alert, well-appearing, in no distress HENT: Normocephalic, atraumatic. Oropharynx unremarkable. EYES: Normal conjunctiva. Sclera non-icteric. NECK: Inspection normal. Non-tender. Supple. No nuchal rigidity. FROM. No masses. RESPIRATORY: Clear to auscultation. No wheezes. No rales. Normal respiratory effort. CARDIAC: Tachycardic rate. Normal rhythm. Subtle systolic murmur. No rubs. Extremities warm and well perfused. Pulses equal. No JVD. GI: Soft, non-distended. No tenderness to palpation. No rebound or guarding. No masses. RECTAL: Deferred. MUSCULOSKELETAL: Atraumatic. Chest examination reveals no tenderness. The back is symmetrical on inspection without obvious abnormality. There is no CVA tenderness to palpation. No joint edema. LOWER EXTREMITIES: Calves are equal size bilaterally and non-tender. No edema. No discoloration. NEURO: Normal sensorium. No sensory or motor deficits noted. SKIN: No rash or jaundice noted. PROCEDURES: none CRITICAL CARE: none OBSERVATION NOTE: none Past Med/Surg History Medical History Pessary maintenance Hypercholesteremia Hypertension Diabetes Constipation Surgical History H/O oral surgery Family History Sister Ovarian cancer Denies family history of Breast cancer Colorectal cancer Social History Smoking Status: Never smoker Do You Dip or Chew Tobacco: No; Hx Alcohol Use: No Hx Substance Use: No Preferred Language: Malagasy Hearing Ability: Use of Hearing Aid Feels Safe at Home: Yes Allergies Allergies Allergy/AdvReac Type Severity Reaction Status Date / Time No Known Drug Allergies Allergy Verified 04/17/23 11:44 Home Meds Home Medications Medication Instructions Recorded Confirmed aspirin 81 mg tablet,delayed 81 mg PO QAM 11/29/20 08/25/23 release glipizide 5 mg tablet 5 mg PO BID 11/29/20 08/25/23 levothyroxine 75 mcg tablet 75 mcg PO DAILYBB 11/29/20 08/25/23 pravastatin 40 mg tablet 40 mg PO QPM 11/29/20 08/25/23 levothyroxine 88 mcg tablet 88 mcg PO . AT 2 AM 08/25/23 08/25/23 metoprolol tartrate 25 mg tablet 25 mg PO BID 08/25/23 08/25/23 potassium chloride 10 mEq 20 meq PO QPM 08/25/23 08/25/23 capsule,extended release timolol maleate 0.25 % eye drops 1 drp OPB [facility]HS 08/25/23 08/25/23 triamterene 37.5 1 cap PO QAM 08/25/23 08/25/23 mg-hydrochlorothiazide 25 mg capsule Results & Data (ED) Vital Signs Vital Signs - 24 hr 08/25/23 14:38 08/25/23 14:40 08/25/23 15:21 Temperature 36.7 C Temperature Source Temporal Artery Scan Pulse Rate - Lying Pulse Rate - Sitting Pulse Rate - Standing Pulse Rate 142 H 123 H Pulse Rate from SpO2 Sensor 123 H Respiratory Rate 17 20 Respiratory Effort / Characteristics Non-Labored Spontaneous Respiratory Depth Normal Blood Pressure - Lying Blood Pressure - Sitting Blood Pressure- Standing Blood Pressure 175/92 H Blood Pressure Mean 119 Blood Pressure Position Sitting Pulse Oximetry 94 98 97 Oxygen Delivery Method Room Air Room Air Sepsis Recent Fever Within 48 Hours No Sepsis New/Unexplained Change in Mental Status No Sepsis Action Taken by Nursing No Action Required 08/25/23 15:24 08/25/23 15:26 08/25/23 15:26 Temperature Temperature Source Pulse Rate - Lying 128 H Pulse Rate - Sitting 130 H Pulse Rate - Standing 141 H Pulse Rate 131 H Pulse Rate from SpO2 Sensor 129 H Respiratory Rate 19 Respiratory Effort / Characteristics Respiratory Depth Blood Pressure - Lying 184/92 H Blood Pressure - Sitting 162/89 H Blood Pressure- Standing 153/105 H Blood Pressure 184/92 H Blood Pressure Mean 137 Blood Pressure Position Pulse Oximetry 96 Oxygen Delivery Method Sepsis Recent Fever Within 48 Hours Sepsis New/Unexplained Change in Mental Status Sepsis Action Taken by Nursing 08/25/23 15:28 08/25/23 15:28 08/25/23 15:29 Temperature Temperature Source Pulse Rate - Lying Pulse Rate - Sitting Pulse Rate - Standing Pulse Rate 122 H Pulse Rate from SpO2 Sensor 122 H Respiratory Rate 23 Respiratory Effort / Characteristics Respiratory Depth Blood Pressure - Lying Blood Pressure - Sitting Blood Pressure- Standing Blood Pressure 162/89 H 153/105 H Blood Pressure Mean 142 119 Blood Pressure Position Pulse Oximetry 95 Oxygen Delivery Method Sepsis Recent Fever Within 48 Hours Sepsis New/Unexplained Change in Mental Status Sepsis Action Taken by Nursing 08/25/23 15:29 08/25/23 15:29 08/25/23 15:30 Temperature Temperature Source Pulse Rate - Lying Pulse Rate - Sitting Pulse Rate - Standing Pulse Rate 139 H 137 H Pulse Rate from SpO2 Sensor 138 H 133 H Respiratory Rate 20 18 Respiratory Effort / Characteristics Respiratory Depth Blood Pressure - Lying Blood Pressure - Sitting Blood Pressure- Standing Blood Pressure 162/89 H Blood Pressure Mean 142 Blood Pressure Position Pulse Oximetry 96 95 Oxygen Delivery Method Sepsis Recent Fever Within 48 Hours Sepsis New/Unexplained Change in Mental Status Sepsis Action Taken by Nursing 08/25/23 15:31 08/25/23 15:31 08/25/23 15:32 Temperature Temperature Source Pulse Rate - Lying Pulse Rate - Sitting Pulse Rate - Standing Pulse Rate 124 H 124 H Pulse Rate from SpO2 Sensor 123 H 124 H Respiratory Rate 25 H 18 Respiratory Effort / Characteristics Respiratory Depth Blood Pressure - Lying Blood Pressure - Sitting Blood Pressure- Standing Blood Pressure 216/120 H Blood Pressure Mean 166 Blood Pressure Position Pulse Oximetry 96 96 Oxygen Delivery Method Sepsis Recent Fever Within 48 Hours Sepsis New/Unexplained Change in Mental Status Sepsis Action Taken by Nursing 08/25/23 15:32 08/25/23 15:40 08/25/23 15:41 Temperature Temperature Source Pulse Rate - Lying Pulse Rate - Sitting Pulse Rate - Standing Pulse Rate 113 H 114 H Pulse Rate from SpO2 Sensor 114 H Respiratory Rate 21 Respiratory Effort / Characteristics Respiratory Depth Blood Pressure - Lying Blood Pressure - Sitting Blood Pressure- Standing Blood Pressure 172/84 H Blood Pressure Mean 118 Blood Pressure Position Pulse Oximetry 96 Oxygen Delivery Method Sepsis Recent Fever Within 48 Hours Sepsis New/Unexplained Change in Mental Status Sepsis Action Taken by Nursing 08/25/23 15:50 08/25/23 16:00 08/25/23 16:00 Temperature Temperature Source Pulse Rate - Lying Pulse Rate - Sitting Pulse Rate - Standing Pulse Rate 112 H 97 H Pulse Rate from SpO2 Sensor 114 H 97 H Respiratory Rate 19 23 Respiratory Effort / Characteristics Respiratory Depth Blood Pressure - Lying Blood Pressure - Sitting Blood Pressure- Standing Blood Pressure 158/77 H Blood Pressure Mean 115 Blood Pressure Position Pulse Oximetry 96 95 Oxygen Delivery Method Sepsis Recent Fever Within 48 Hours Sepsis New/Unexplained Change in Mental Status Sepsis Action Taken by Nursing 08/25/23 16:10 08/25/23 16:20 08/25/23 16:24 Temperature Temperature Source Pulse Rate - Lying Pulse Rate - Sitting Pulse Rate - Standing Pulse Rate 93 H 94 H 91 H Pulse Rate from SpO2 Sensor 93 H 95 H Respiratory Rate 18 22 Respiratory Effort / Characteristics Respiratory Depth Blood Pressure - Lying Blood Pressure - Sitting Blood Pressure- Standing Blood Pressure 158/77 H Blood Pressure Mean Blood Pressure Position Pulse Oximetry 97 95 Oxygen Delivery Method Sepsis Recent Fever Within 48 Hours Sepsis New/Unexplained Change in Mental Status Sepsis Action Taken by Nursing 08/25/23 16:30 08/25/23 16:31 08/25/23 16:31 Temperature Temperature Source Pulse Rate - Lying Pulse Rate - Sitting Pulse Rate - Standing Pulse Rate 95 H 89 Pulse Rate from SpO2 Sensor 97 H 89 Respiratory Rate 18 19 Respiratory Effort / Characteristics Respiratory Depth Blood Pressure - Lying Blood Pressure - Sitting Blood Pressure- Standing Blood Pressure 185/103 H Blood Pressure Mean 152 Blood Pressure Position Pulse Oximetry 99 98 Oxygen Delivery Method Sepsis Recent Fever Within 48 Hours Sepsis New/Unexplained Change in Mental Status Sepsis Action Taken by Nursing 08/25/23 16:40 08/25/23 16:50 08/25/23 17:00 Temperature Temperature Source Pulse Rate - Lying Pulse Rate - Sitting Pulse Rate - Standing Pulse Rate 82 86 Pulse Rate from SpO2 Sensor 83 85 Respiratory Rate 20 25 H Respiratory Effort / Characteristics Respiratory Depth Blood Pressure - Lying Blood Pressure - Sitting Blood Pressure- Standing Blood Pressure 187/79 H Blood Pressure Mean 136 Blood Pressure Position Pulse Oximetry 98 96 Oxygen Delivery Method Sepsis Recent Fever Within 48 Hours Sepsis New/Unexplained Change in Mental Status Sepsis Action Taken by Nursing 08/25/23 17:00 08/25/23 17:10 08/25/23 17:20 Temperature Temperature Source Pulse Rate - Lying Pulse Rate - Sitting Pulse Rate - Standing Pulse Rate 87 86 81 Pulse Rate from SpO2 Sensor 85 87 81 Respiratory Rate 30 H 21 18 Respiratory Effort / Characteristics Respiratory Depth Blood Pressure - Lying Blood Pressure - Sitting Blood Pressure- Standing Blood Pressure Blood Pressure Mean Blood Pressure Position Pulse Oximetry 99 96 96 Oxygen Delivery Method Sepsis Recent Fever Within 48 Hours Sepsis New/Unexplained Change in Mental Status Sepsis Action Taken by Nursing 08/25/23 17:30 08/25/23 17:30 08/25/23 17:40 Temperature Temperature Source Pulse Rate - Lying Pulse Rate - Sitting Pulse Rate - Standing Pulse Rate 78 77 Pulse Rate from SpO2 Sensor 78 79 Respiratory Rate 24 21 Respiratory Effort / Characteristics Respiratory Depth Blood Pressure - Lying Blood Pressure - Sitting Blood Pressure- Standing Blood Pressure 166/70 H Blood Pressure Mean 107 Blood Pressure Position Pulse Oximetry 98 99 Oxygen Delivery Method Sepsis Recent Fever Within 48 Hours Sepsis New/Unexplained Change in Mental Status Sepsis Action Taken by Nursing 08/25/23 17:50 08/25/23 18:00 08/25/23 18:00 Temperature Temperature Source Pulse Rate - Lying Pulse Rate - Sitting Pulse Rate - Standing Pulse Rate 72 82 Pulse Rate from SpO2 Sensor Respiratory Rate 25 H 15 Respiratory Effort / Characteristics Respiratory Depth Blood Pressure - Lying Blood Pressure - Sitting Blood Pressure- Standing Blood Pressure 193/73 H Blood Pressure Mean 95 Blood Pressure Position Pulse Oximetry Oxygen Delivery Method Sepsis Recent Fever Within 48 Hours Sepsis New/Unexplained Change in Mental Status Sepsis Action Taken by Nursing 08/25/23 18:10 08/25/23 18:20 08/25/23 18:30 Temperature Temperature Source Pulse Rate - Lying Pulse Rate - Sitting Pulse Rate - Standing Pulse Rate 79 74 Pulse Rate from SpO2 Sensor Respiratory Rate 21 22 Respiratory Effort / Characteristics Respiratory Depth Blood Pressure - Lying Blood Pressure - Sitting Blood Pressure- Standing Blood Pressure 169/66 H Blood Pressure Mean 113 Blood Pressure Position Pulse Oximetry Oxygen Delivery Method Sepsis Recent Fever Within 48 Hours Sepsis New/Unexplained Change in Mental Status Sepsis Action Taken by Nursing 08/25/23 18:30 08/25/23 18:40 08/25/23 18:50 Temperature Temperature Source Pulse Rate - Lying Pulse Rate - Sitting Pulse Rate - Standing Pulse Rate 82 74 71 Pulse Rate from SpO2 Sensor Respiratory Rate 19 23 23 Respiratory Effort / Characteristics Respiratory Depth Blood Pressure - Lying Blood Pressure - Sitting Blood Pressure- Standing Blood Pressure Blood Pressure Mean Blood Pressure Position Pulse Oximetry Oxygen Delivery Method Sepsis Recent Fever Within 48 Hours Sepsis New/Unexplained Change in Mental Status Sepsis Action Taken by Nursing 08/25/23 19:00 08/25/23 19:00 08/25/23 19:10 Temperature Temperature Source Pulse Rate - Lying Pulse Rate - Sitting Pulse Rate - Standing Pulse Rate 71 87 Pulse Rate from SpO2 Sensor Respiratory Rate 21 21 Respiratory Effort / Characteristics Respiratory Depth Blood Pressure - Lying Blood Pressure - Sitting Blood Pressure- Standing Blood Pressure 179/72 H Blood Pressure Mean 125 Blood Pressure Position Pulse Oximetry Oxygen Delivery Method Sepsis Recent Fever Within 48 Hours Sepsis New/Unexplained Change in Mental Status Sepsis Action Taken by Nursing 08/25/23 19:20 08/25/23 19:23 08/25/23 19:30 Temperature Temperature Source Pulse Rate - Lying Pulse Rate - Sitting Pulse Rate - Standing Pulse Rate 81 87 87 Pulse Rate from SpO2 Sensor Respiratory Rate 21 21 Respiratory Effort / Characteristics Respiratory Depth Blood Pressure - Lying Blood Pressure - Sitting Blood Pressure- Standing Blood Pressure Blood Pressure Mean Blood Pressure Position Pulse Oximetry Oxygen Delivery Method Sepsis Recent Fever Within 48 Hours Sepsis New/Unexplained Change in Mental Status Sepsis Action Taken by Nursing 08/25/23 19:30 08/25/23 19:50 08/25/23 20:00 Temperature Temperature Source Pulse Rate - Lying Pulse Rate - Sitting Pulse Rate - Standing Pulse Rate 76 Pulse Rate from SpO2 Sensor 76 Respiratory Rate 17 Respiratory Effort / Characteristics Respiratory Depth Blood Pressure - Lying Blood Pressure - Sitting Blood Pressure- Standing Blood Pressure 171/64 H 141/70 H Blood Pressure Mean 137 93 Blood Pressure Position Pulse Oximetry 99 Oxygen Delivery Method Sepsis Recent Fever Within 48 Hours Sepsis New/Unexplained Change in Mental Status Sepsis Action Taken by Nursing 08/25/23 20:00 08/25/23 20:10 08/25/23 20:20 Temperature Temperature Source Pulse Rate - Lying Pulse Rate - Sitting Pulse Rate - Standing Pulse Rate 74 72 74 Pulse Rate from SpO2 Sensor 74 72 74 Respiratory Rate 16 20 19 Respiratory Effort / Characteristics Respiratory Depth Blood Pressure - Lying Blood Pressure - Sitting Blood Pressure- Standing Blood Pressure Blood Pressure Mean Blood Pressure Position Pulse Oximetry 97 97 97 Oxygen Delivery Method Sepsis Recent Fever Within 48 Hours Sepsis New/Unexplained Change in Mental Status Sepsis Action Taken by Nursing Laboratory Data 08/25/23 14:51 08/25/23 14:51 Lab Results 08/25/23 08/25/23 08/25/23 Range/Units 14:51 16:51 19:04 WBC 6.85 (4.8-10.8) K/ul RBC 4.70 (4.20-5.40) M/uL Hgb 13.4 (12.0-16.0) g/dl Hct 41.0 (37.0-47.0) % MCV 87.2 (80.0-100.0) fL MCH 28.5 (25.0-34.0) pg MCHC 32.7 (32.0-36.0) g/dL RDW Std Deviation 37.6 (36.4-46.3) fL RDW Coeff of Bro 11.7 (11.5-14.5) % Plt Count 256 (130-400) K/uL MPV 10.1 (9.4-12.4) fL Immature Gran % (Auto) 0.3 % Neut % (Auto) 61.5 % Lymph % (Auto) 27.2 % [place] % (Auto) 9.1 % Eos % (Auto) 1.3 % Baso % (Auto) 0.6 % Neut # (Auto) 4.22 (1.40-6.50) K/uL Lymph # (Auto) 1.86 (1.20-3.40) K/uL [place] # (Auto) 0.62 H (0.11-0.59) K/uL Eos # (Auto) 0.09 (0.00-0.50) K/uL Baso # (Auto) 0.04 (0.00-0.20) K/uL Immature Gran # (Auto) 0.02 (0.01-0.20) K/uL Sodium 140 (136-145) mmol/L Potassium 3.7 (3.5-5.1) mmol/L Chloride 104 (98-107) mmol/L Carbon Dioxide 26 (21-32) mmol/L Anion Gap 10 (3-11) BUN 24 H (6-23) mg/dl Creatinine 0.92 (0.6-1.2) mg/dl Est Cr Clr Drug Dosing 35.0 ml/min Est GFR ( Amer) 64.4 ml/min Est GFR (Non-Af Amer) 55.6 ml/min BUN/Creatinine Ratio 26.1 H (10-20) Glucose 189 H (70-99(Fasting)) mg/dl POC Glucose 120 H (70-99) mg/dl Calcium 9.9 (8.6-10.3) mg/dl Magnesium 1.8 (1.7-2.4) mg/dl Total Bilirubin 0.6 (0.2-1.0) mg/dl AST 17 (13-39) U/L ALT 10 (7-52) U/L Alkaline Phosphatase 62 (34-104) U/L Troponin I High Sens 34.1 H 116.9 H* D (0-14) pg/ml Total Protein 7.1 (6.0-8.3) gm/dl Albumin 4.1 (3.4-5.0) gm/dl Globulin 3.0 (2.5-4.0) gm/dl Albumin/Globulin Ratio 1.4 (0.9-2) TSH < 0.010 L (0.300-4.500) uIu/ml Free T4 3.21 H (0.61-1.60) ng/dl Urine Color Urine Appearance (Clear) Urine pH (4.5-7.5) Ur Specific [place] (1.000-1.030) Urine Protein (Negative) Urine Glucose (UA) (Negative) Urine Ketones (Negative) Urine Blood (Negative) Urine Nitrite (Negative) Urine Bilirubin (Negative) Urine Urobilinogen (Negative) Ur Leukocyte Esterase (Negative) Urine WBC (Auto) (0-5) /hpf Urine RBC (Auto) (0-4) /hpf U Hyaline Cast (Auto) (0-5) /lpf U Epithel Cells (Auto) (0-5) /lpf Urine Bacteria (Auto) (Negative) 08/25/23 Range/Units 19:49 WBC (4.8-10.8) K/ul RBC (4.20-5.40) M/uL Hgb (12.0-16.0) g/dl Hct (37.0-47.0) % MCV (80.0-100.0) fL MCH (25.0-34.0) pg MCHC (32.0-36.0) g/dL RDW Std Deviation (36.4-46.3) fL RDW Coeff of Bro (11.5-14.5) % Plt Count (130-400) K/uL MPV (9.4-12.4) fL Immature Gran % (Auto) % Neut % (Auto) % Lymph % (Auto) % [place] % (Auto) % Eos % (Auto) % Baso % (Auto) % Neut # (Auto) (1.40-6.50) K/uL Lymph # (Auto) (1.20-3.40) K/uL [place] # (Auto) (0.11-0.59) K/uL Eos # (Auto) (0.00-0.50) K/uL Baso # (Auto) (0.00-0.20) K/uL Immature Gran # (Auto) (0.01-0.20) K/uL Sodium (136-145) mmol/L Potassium (3.5-5.1) mmol/L Chloride (98-107) mmol/L Carbon Dioxide (21-32) mmol/L Anion Gap (3-11) BUN (6-23) mg/dl Creatinine (0.6-1.2) mg/dl Est Cr Clr Drug Dosing ml/min Est GFR ( Amer) ml/min Est GFR (Non-Af Amer) ml/min BUN/Creatinine Ratio (10-20) Glucose (70-99(Fasting)) mg/dl POC Glucose (70-99) mg/dl Calcium (8.6-10.3) mg/dl Magnesium (1.7-2.4) mg/dl Total Bilirubin (0.2-1.0) mg/dl AST (13-39) U/L ALT (7-52) U/L Alkaline Phosphatase (34-104) U/L Troponin I High Sens (0-14) pg/ml Total Protein (6.0-8.3) gm/dl Albumin (3.4-5.0) gm/dl Globulin (2.5-4.0) gm/dl Albumin/Globulin Ratio (0.9-2) TSH (0.300-4.500) uIu/ml Free T4 (0.61-1.60) ng/dl Urine Color Yellow Urine Appearance Clear (Clear) Urine pH 7.0 (4.5-7.5) Ur Specific [place] 1.013 (1.000-1.030) Urine Protein Negative (Negative) Urine Glucose (UA) Negative (Negative) Urine Ketones Negative (Negative) Urine Blood Negative (Negative) Urine Nitrite Negative (Negative) Urine Bilirubin Negative (Negative) Urine Urobilinogen Negative (Negative) Ur Leukocyte Esterase Trace H (Negative) Urine WBC (Auto) 1-5 (0-5) /hpf Urine RBC (Auto) 0-4 (0-4) /hpf U Hyaline Cast (Auto) 1-5 (0-5) /lpf U Epithel Cells (Auto) 20-30 H (0-5) /lpf Urine Bacteria (Auto) Negative (Negative) Administered Medications Sodium Chloride (Nss) 1,000 mls @ 125 mls/hr IV .Q8H RENETTA Stop: 09/24/23 15:59 Last Admin: 08/25/23 15:53 Dose: 125 mls/hr Documented By: ACC Discontinued Medications Potassium Chloride (K [place] / Wtr) 10 meq in 100 mls @ 100 mls/hr IV ONE ONE Stop: 08/25/23 16:47 Last Infusion: 08/25/23 17:35 Dose: Infused Documented By: Admin: 08/25/23 16:24 Dose: 100 mls/hr Documented By: ACC Metoprolol Tartrate (Metoprolol Tartrate 1 Mg/Ml Vial) 2.5 mg IV NOW STA Stop: 08/25/23 15:47 Last Admin: 08/25/23 15:53 Dose: 2.5 mg Documented By: ACC Discharge Plan Visit Data Chief Complaint: Dizziness Stated Complaint: DIZZINESS, UPSET STOMACH, RAPID HEARTBEAT ED Provider: Edward Gonzalez Discharge Problem: Tachycardia, Orthostasis, Elevated troponin, Hyperthyroidism Patient Disposition: Admitted As Inpatient Forms Stand Alone Forms: [facility] Prescriptions Prescriptions: No Action levothyroxine 75 mcg tablet 75 mcg PO DAILYBB aspirin 81 mg tablet,delayed release (DR/EC) 81 mg PO QAM glipizide 5 mg tablet 5 mg PO BID pravastatin 40 mg tablet 40 mg PO QPM levothyroxine 88 mcg tablet 88 mcg PO . AT 2 AM metoprolol tartrate 25 mg tablet 25 mg PO BID potassium chloride 10 mEq capsule, extended release 20 meq PO QPM timolol maleate 0.25 % drops 1 drp OPB AMHS triamterene-hydrochlorothiazid 37.5-25 mg capsule 1 cap PO QAM Referrals Referrals: Lisseth Mensah MD [Primary Care Provider] -
[2023-08-25 16:25] LABS: T4 Free Thyroxine 3.21 ng/dl (0.61-1.60)
--- NOTE | 2023-08-25 17:56 | History & Physical Report ---
Date of Service August 25, 2023 Assessment & Plan (1) Iatrogenic hyperthyroidism: Plan: with her TSH being undetectable and free T4 being essentially double the upper limits of normal, it seems acutely iatrogenic hyperthyroidism is driving much of her symptoms. We discussed that it could potentially explain her entire constellationnot just the racing heart and the lightheaded/weak/dizziness, but also potentially the weight loss and forgetfulnessalthough this would have to be borne out entirely by seeing those 2 problems go away as she becomes euthyroidsee below, as certainly they have their own other more plausible explanations, but I discussed with patient and family would certainly be nice if euthyroid would also lead to resolution of most of her problems physically over the last year. as far as management of the hyperthyroidismshangie has responded nicely to 2.5 mg of IV metoprolol. She is listed as being on 25 mg twice daily metoprolol tartrate at homewe will increase that to 50 mg and follow. Adjust the dose p.o. if possible, IV if needed for refractory or rebound tachycardia. We will hold her Synthroid until she becomes closer to euthyroid, and then resume at a lower dose, assuming that she was taking her prescribed dose as prescribed. As far as how she became iatrogenically hyperthyroidshangie does not recall any dosing change in the memorable past. With her forgetfulness, it is quite possible that she is accidentally taking extra given that she takes care of her own medications. With her weight loss, if the weight loss preceded the hyperthyroidism (see below) then it is also certainly possible that her weight loss effectively raised the dose as far as how it impacts her body. We will need ongoing close follow-up after discharge with serial TSH measurements, serial histories in regards to how she is taking her medicines, will likely need her family to help supervise her medication management to ensure she is truly taking things as prescribed, and (see below again) follow her weight. As far as her dizzinessit is likely a symptom of hyperthyroidism as well as a degree of dehydrationhold triamterene/hydrochlorothiazide, give gentle IV fluids, and otherwise holding Synthroid to work on a euthyroid state. If these measures do not improve her dizziness, may need to search for other causes, but this is unlikely. Encourage activity, PT/OT eval and treat. (2) Weight loss: Plan: While she and family cannot really put a number on how many pounds she is lost over the last year, she seems to have a degree of protein calorie malnutrition going on. We discussed that a simple/easy to fix explanation would be if the hyperthyroidism came first, certainly that can take away someone's appetite. We discussed that unfortunately that is not the most likely answer given that other answers are far more common. Her weight loss does seem to be driven by poor appetite/poor p.o. intake, and this in turn might be driven by her chronic cons tipation, or anxietyif her appetite/weight loss does not improve once she is euthyroid. We discussed weight loss as a "budget" and doing math at the bedside suggested she would be just under 1500 carmine a day for light activity's plus basal energy expenditurewe discussed what this means, how to track, etc. I have also asked the dietitian to see her. I discussed plainly with what I see, oftentimes when older patients suffer an irreparable decline/ underlying deconditioning and malnutrition is a major driving factor even if it is not recognized as the cause of the decline. Will need to manage the constipation (see below) to take that away as a potential factor driving the weight loss; will need to follow her appetite/mood/anxiety once she obtains a euthyroid state to rule out dementia as cause of poor p.o. intake or anxiety as cause of poor p.o. intakeand if either of these clearly stay symptomatic/present as a causative factor, then they would each need to be individually addressed. We discussed that this is something that will take place over the next 6 weeks or so out of the hospital and office follow-up given that it will take quite a while to obtain a euthyroid state. (3) Dizziness: Plan: See above, I suspect it relates to the hyperthyroidism and dehydration. Holding triamterene/hydrochlorothiazide, giving gentle IV fluids (4) Memory loss: Plan: frequently throughout interview and discussion she mentions forgetfulness, she seems largely forgetful only of distant details and minute medical details. She does not really show and affect her demeanor consistent with dementia, although we did discuss that obviously I only saw her for about an hour or so and have never seen her before. 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 This will be something that requires close/ongoing follow-up over the coming weeks to see what persists once she becomes euthyroid, and then managing what is "leftover" given her malnutritionchecking B12, thiamine, folate for completeness. (5) Constipation: Plan: Chronic. She notes she is on some sort of medicine for her bowels but she does not recall what it Andressa do not see it on her med reconciliation, and currently she does not have a med list with her. She did discuss that eating more vegetables/high-fiber foods tends to help some, but also that she probably only has 23 bowel movements a week normally. We discussed utilizing MiraLAX as a bowel regimenfirst to get her bowels moving, and then as maintenance therapy given that the constipation seems to be chronic, and this may be a major driving factor in her poor appetite/weight loss. Discussed titrating the dose to goal of 1 medium size bowel movement daily, and "dosing today based on yesterday's bowel movement". For now to start to try to get her bowels movingarbitrarily starting with 34 g twice daily, obviously titrate based on results. (6) Diabetes: Plan: Her last A1c I have on record is 7.1and while it is a little over a year and a half ago, she is also 88 years old, with excellent glycemic control. In terms of her weight loss, her daughter was expressing a degree of concern about her potentially eating things that might spike her sugar, and we discussed that while it is true that high sugars clog arteries, and progressive microvascular ischemia results from hyperglycemia, typically "today's sugar control leads to heart attack 10-20 years from now" and in that respect her weight loss/malnutrition is far more threatening than an A1c that might rise from 7-8 or even 9. Check A1c and follow. Given her weight loss, it would not surprise me if she is becoming "less of a diabetic" than she previously was. (7) Hypertension: Plan: Follow numbersincreased metoprolol, but held triamterene/hydrochlorothiazide. Seems to be asymptomatic from a blood pressure standpoint (8) Hypercholesteremia: Plan: she is on Pravachol, tolerating well. Continue for now. (9) DVT prophylaxis: Plan: lovenox (10) Discharge planning issues: Plan: Lives at home alone, does seem to have good family support. I anticipate she will be able to get back home, but obviously with her dizziness and fall riskwe will need to see how she does. PT/OT eval and treat. History of Present Illness Chief Complaint: weak/dizzy/racing heart Primary Care Provider: Lisseth Mensah MD Very pleasant 88-year-old female who comes in for weakness and dizzinessshe notes that she also is simultaneously coming in for symptoms of racing heart. She has a hard time determining exactly when the symptoms began, as they seem to have been progressive over several weeks. She notes that the last week or so is where things were getting intolerable. The dizziness is predominantly a lightheadedness that is worse whenever she stands up or stands up from bending over, but she does vaguely relates that there is some degree of a different dizziness as well, although she has a hard time describing it. She also relates a feeling of her heart racing that she really cannot seem to quantify or clarify more other than it seems like it has been going on and worsening over the last week as well. On background, it seems as though she has had a bit of a decline over the last yearthere is no clear "spark that started it"but she has had poor appetite, undefined weight loss (but her family notes that she had to buy new close because her previous wardrobe was too big), and she is worried about getting more confused. Allergies Allergy/AdvReac Type Severity Reaction Status Date / Time No Known Drug Allergies Allergy Verified 04/17/23 11:44 Home Medications Medication Instructions Recorded Confirmed Type aspirin 81 mg tablet,delayed 81 mg PO QAM 11/29/20 08/25/23 History release glipizide 5 mg tablet 5 mg PO BID 11/29/20 08/25/23 History levothyroxine 75 mcg tablet 75 mcg PO DAILYBB 11/29/20 08/25/23 History pravastatin 40 mg tablet 40 mg PO QPM 11/29/20 08/25/23 History levothyroxine 88 mcg tablet 88 mcg PO . AT 2 AM 08/25/23 08/25/23 History metoprolol tartrate 25 mg tablet 25 mg PO BID 08/25/23 08/25/23 History potassium chloride 10 mEq 20 meq PO QPM 08/25/23 08/25/23 History capsule,extended release timolol maleate 0.25 % eye drops 1 drp OPB [facility] 08/25/23 08/25/23 History triamterene 37.5 1 cap PO QAM 08/25/23 08/25/23 History mg-hydrochlorothiazide 25 mg capsule Past Med/Surg History Medical History Pessary maintenance Hypercholesteremia Hypertension Diabetes Constipation Surgical History H/O oral surgery Family History Sister Ovarian cancer Denies family history of Breast cancer Colorectal cancer Social History Smoking Status: Never smoker Do You Dip or Chew Tobacco: No; Hx Alcohol Use: No Hx Substance Use: No Preferred Language: Finnish Hearing Ability: Use of Hearing Aid Feels Safe at Home: Yes Review of Systems Review of Systems: All systems reviewed & are unremarkable except as noted in HPI & below Physical Exam Physical Exam: General she is awake and alert pleasant no distress. HEENT normocephalic atraumatic mucous membranes moist. Cardio is regularshe is in the 70s to 90s the entire time in the room sinus. No rubs murmurs or gallops. Lungs are clear to auscultation bilaterally no rales rhonchi or wheeze with good effort. Abdomen is soft mildly distended left lower quadrant fullness and tenderness consistent with constipation no guarding rebound or rigidity. Extremities show no sinus clubbing or edema no calf tenderness. Neuro shows no focal deficits. Skin without rashes pallor or icterus labs, EKG reviewed Results & Data Results & Data Vital Signs (Past 12 Hours) Vital Signs Temp Pulse Resp BP Pulse Ox O2 Del Method 08/25/23 16:50 86 25 H 96 08/25/23 16:40 82 20 98 08/25/23 16:31 185/103 H 08/25/23 16:31 89 19 98 08/25/23 16:30 95 H 18 99 08/25/23 16:24 91 H 158/77 H 08/25/23 16:20 94 H 22 95 01/21/24 16:10 93 H 18 97 08/25/23 16:00 97 H 23 95 08/25/23 16:00 158/77 H 08/25/23 15:50 112 H 19 96 08/25/23 15:41 114 H 08/25/23 15:40 113 H 21 96 08/25/23 15:32 172/84 H 08/25/23 15:32 124 H 18 96 08/25/23 15:31 216/120 H 08/25/23 15:31 124 H 25 H 96 08/25/23 15:30 137 H 18 95 08/25/23 15:29 139 H 20 96 08/25/23 15:29 162/89 H 08/25/23 15:29 153/105 H 08/25/23 15:28 122 H 23 95 08/25/23 15:28 162/89 H 08/25/23 15:26 131 H 19 96 08/25/23 15:26 184/92 H 08/25/23 15:21 123 H 20 97 08/25/23 14:40 98 Room Air 08/25/23 14:38 98.1 F 142 H 17 175/92 H 94 Room Air PG Care Time/CCT Total # of Minutes Spent Total Time Spent with Patient: Total time spent is greater than 50% in coordination of care (as documented) at patient's floor/unit and/or counseling patient: Coding Level of Care Code 13129 INT INP/OBS CARE 3/75MIN Diagnoses Iatrogenic hyperthyroidism E05.80 Weight loss R63.4 Dizziness R42 Memory loss R41.3 Constipation K59.00 Diabetes E11.9 Hypertension I10 Hypercholesteremia E78.00 DVT prophylaxis Z29.9 Discharge planning issues Z02.9
[2023-08-25 20:03] LABS: Appearance Urine Clear (Clear); Bacteria Urine Automated Negative (Negative); Bilirubin Urine Negative (Negative); Blood Urine Negative (Negative); Color Urine Yellow; Epithelial Cell Urine Auto 20-30 /lpf (0-5); Glucose Urine UA Negative (Negative); Ketones Urine Negative (Negative); Leukocyte Esterase Urine Trace (Negative); Nitrite Urine Negative (Negative); Protein Urine Negative (Negative); RBC Urine Automated 0-4 /hpf (0-4); Specific Gravity Urine 1.013 (1.000-1.030); Urobilinogen Urine Negative (Negative)
[2023-08-25] MEDS ORDERED: ACETAMINOPHEN 325 MG TAB PO PRN (21:50)
[2023-08-25] MEDS ORDERED: POTASSIUM CHLORIDE 10 MEQ TABCR PO SCH (21:50)
[2023-08-25] MEDS ORDERED: ONDANSETRON INJ 2 MG/ML 2 ML VIAL IV PRN (21:50)
[2023-08-25] MEDS ORDERED: ALUMINUM/MAGNESIUM SUSP 30 ML UDC PO PRN (21:50)
[2023-08-25] MEDS ORDERED: LACTATED RINGER'S 1,000 ML IV SCH (21:50)
[2023-08-25] MEDS ORDERED: MAGNESIUM HYDROXIDE SUSP 30 ML UDC PO PRN (21:50)
[2023-08-25] MEDS ORDERED: PRAVASTATIN SOD 40 MG TAB PO SCH (21:50)
[2023-08-25] MEDS: METOPROLOL TARTRATE 50 MG TAB PO SCH (22:28)
[2023-08-25] MEDS: POLYETHYLENE (MIRALAX) 17 GM PACK PO SCH (22:28)
--- NOTE | 2023-08-26 06:43 | Hospitalist Progress Note ---
Date of Service August 26, 2023 Assessment & Plan (1) Iatrogenic hyperthyroidism: Plan: -TSH undetectable and free T4 doubled. -most likely causing symptoms of lightheadedness, weak, dizziness, wt loss, forgetfulness, and resting heart rate. -responded well to 2.5mg IV metoprolol. -Increase metoprolol tartrate from 25mg to 50mg. -holding home synthroid, gino resume once euthyroid but at a lower dose. -Will need ongoing close follow-up after discharge with serial TSH measurements, serial histories in regards to how she is taking her medicines, will likely need her family to help supervise her medication management to ensure she is truly taking things as prescribed (2) Weight loss: Plan: While she and family cannot really put a number on how many pounds she is lost over the last year, she seems to have a degree of protein calorie malnutrition going on. We discussed that a simple/easy to fix explanation would be if the hyperthyroidism came first, certainly that can take away someone's appetite. We discussed that unfortunately that is not the most likely answer given that other answers are far more common. Her weight loss does seem to be driven by poor appetite/poor p.o. intake, and this in turn might be driven by her chronic constipation, or anxietyif her appetite/weight loss does not improve once she is euthyroid. We discussed weight loss as a "budget" and doing math at the bedside suggested she would be just under 1500 carmine a day for light activity's plus basal energy expenditurewe discussed what this means, how to track, etc. I have also asked the dietitian to see her. I discussed plainly with what I see, oftentimes when older patients suffer an irreparable decline/ underlying deconditioning and malnutrition is a major driving factor even if it is not recognized as the cause of the decline. Will need to manage the constipation (see below) to take that away as a potential factor driving the weight loss; will need to follow her appe tite/mood/anxiety once she obtains a euthyroid state to rule out dementia as cause of poor p.o. intake or anxiety as cause of poor p.o. intakeand if either of these clearly stay symptomatic/present as a causative factor, then they would each need to be individually addressed. We discussed that this is something that will take place over the next 6 weeks or so out of the hospital and office follow-up given that it will take quite a while to obtain a euthyroid state. (3) Dizziness: Plan: - Most likely relates to the hyperthyroidism and dehydration. - Holding triamterene/hydrochlorothiazide, giving gentle IV fluids (4) Memory loss: Plan: frequently throughout interview and discussion she mentions forgetfulness, she seems largely forgetful only of distant details and minute medical details. She does not really show and affect her demeanor consistent with dementia, although we did discuss that obviously I only saw her for about an hour or so and have never seen her before. 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 This will be something that requires close/ongoing follow-up over the coming weeks to see what persists once she becomes euthyroid, and then managing what is "leftover" given her malnutritionchecking B12, thiamine, folate for completeness. (5) Constipation: Plan: Chronic. She notes she is on some sort of medicine for her bowels but she does not recall what it Andressa do not see it on her med reconciliation, and currently she does not have a med list with her. She did discuss that eating more vegetables/high-fiber foods tends to help some, but also that she probably only has 23 bowel movements a week normally. We discussed utilizing MiraLAX as a bowel regimenfirst to get her bowels moving, and then as maintenance therapy given that the constipation seems to be chronic, and this may be a major driving factor in her poor appetite/weight loss. Discussed titrating the dose to goal of 1 medium size bowel movement daily, and "dosing today based on yesterday's bowel movement". For now to start to try to get her bowels movingarbitrarily starting with 34 g twice daily, obviously titrate based on results. (6) Diabetes: Plan: Her last A1c I have on record is 7.1and while it is a little over a year and a half ago, she is also 88 years old, with excellent glycemic control. In terms of her weight loss, her daughter was expressing a degree of concern about her potentially eating things that might spike her sugar, and we discussed that while it is true that high sugars clog arteries, and progressive microvascular ischemia results from hyperglycemia, typically "today's sugar control leads to heart attack 10-20 years from now" and in that respect her weight loss/malnutrition is far more threatening than an A1c that might rise from 7-8 or even 9. Check A1c and follow. Given her weight loss, it would not surprise me if she is becoming "less of a diabetic" than she previously was. (7) Hypertension: Plan: Follow numbersincreased metoprolol, but held triamterene/hydrochlorothiazide. Seems to be asymptomatic from a blood pressure standpoint (8) Hypercholesteremia: Plan: she is on Pravachol, tolerating well. Continue for now. (9) DVT prophylaxis: Plan: lovenox (10) Discharge planning issues: Plan: Lives at home alone, does seem to have good family support. I anticipate she will be able to get back home, but obviously with her dizziness and fall riskwe will need to see how she does. PT/OT eval and treat. Admission and Anticipated Discharge Date Admission Date: August 25, 2023 Results & Data Results & Data Vital Signs (Past 12 Hours) Vital Signs Temp Pulse Pulse Pulse Resp BP BP 08/26/23 04:18 36.8 C 56 L 20 131/60 08/26/23 01:10 71 08/25/23 23:00 63 144/71 H 08/25/23 22:00 36.9 C 72 18 203/73 H 08/25/23 20:20 74 19 08/25/23 20:10 72 20 08/25/23 20:00 74 16 08/25/23 20:00 141/70 H 08/25/23 19:50 76 17 08/25/23 19:30 171/64 H 08/25/23 19:30 87 21 08/25/23 19:23 87 08/25/23 19:20 81 21 08/25/23 19:10 87 21 08/25/23 19:00 71 21 08/25/23 19:00 179/72 H 08/25/23 18:50 71 23 Pulse Ox O2 Del Method 08/26/23 04:18 96 Room Air 08/26/23 01:10 08/25/23 23:00 08/25/23 22:00 94 Room Air 08/25/23 20:20 97 08/25/23 20:10 97 08/25/23 20:00 97 08/25/23 20:00 08/25/23 19:50 99 08/25/23 19:30 08/25/23 19:30 08/25/23 19:23 08/25/23 19:20 08/25/23 19:10 08/25/23 19:00 08/25/23 19:00 08/25/23 18:50
[2023-08-26 07:51] LABS: BUN Creatinine Ratio 24.7 (10-20); Calcium 9.3 mg/dl (8.6-10.3); Creatinine Clr Calc Pharmacy 44.1 ml/min; Est GFR (African American) 85.2 ml/min; Est GFR (Non-African American) 73.5 ml/min; Potassium 3.6 mmol/L (3.5-5.1)
[2023-08-26 08:01] LABS: Troponin I High Sensitivity 200.3 pg/ml (0-14)
[2023-08-26 08:14] LABS: Folate (Folic Acid),Ser orPlas 9.4 ng/ml (>5.38)
[2023-08-26 08:37] LABS: Estimated Average Glucose 146 mg/dl; Hemoglobin A1C 6.7 % (4.5-5.6)
[2023-08-26] MEDS ORDERED: ASPIRIN 81 MG ECTAB PO SCH (09:00)
[2023-08-26] MEDS ORDERED: TIMOLOL MALEATE 0.25% OP SOLN 5 ML BTL OP SCH (09:00)
[2023-08-26] MEDS ORDERED: ENOXAPARIN INJ 30 MG/0.3 ML SYR SQ SCH (09:00)
[2023-08-26] MEDS: METOPROLOL TARTRATE 50 MG TAB PO SCH (09:41)
[2023-08-26] MEDS: POLYETHYLENE (MIRALAX) 17 GM PACK PO SCH (09:41)
--- NOTE | 2023-08-26 13:09 | Discharge Summary ---
Date of Service August 26, 2023 Admission HPI Per Admitting Provider Very pleasant 88-year-old female who comes in for weakness and dizzinessshe notes that she also is simultaneously coming in for symptoms of racing heart. She has a hard time determining exactly when the symptoms began, as they seem to have been progressive over several weeks. She notes that the last week or so is where things were getting intolerable. The dizziness is predominantly a lightheadedness that is worse whenever she stands up or stands up from bending over, but she does vaguely relates that there is some degree of a different dizziness as well, although she has a hard time describing it. She also relates a feeling of her heart racing that she really cannot seem to quantify or clarify more other than it seems like it has been going on and worsening over the last week as well. On background, it seems as though she has had a bit of a decline over the last yearthere is no clear "spark that started it"but she has had poor appetite, undefined weight loss (but her family notes that she had to buy new close because her previous wardrobe was too big), and she is worried about getting more confused. Admission Exam Per Admitting Provider General she is awake and alert pleasant no distress. HEENT normocephalic atraumatic mucous membranes moist. Cardio is regularshe is in the 70s to 90s the entire time in the room sinus. No rubs murmurs or gallops. Lungs are clear to auscultation bilaterally no rales rhonchi or wheeze with good effort. Abdomen is soft mildly distended left lower quadrant fullness and tenderness consistent with constipation no guarding rebound or rigidity. Extremities show no sinus clubbing or edema no calf tenderness. Neuro shows no focal deficits. Skin without rashes pallor or icterus Principal Diagnosis Iatrogenic hyperthyroidism Discharge Exam Constitutional: well-appearing, no acute distress HEENT: NCAT, no conjunctival injection CV: regular rhythm, no murmur appreciated, extremities well-perfused, no LE edema Resp: CTABL, no wheezes/rales/rhonchi appreciated, no increased work of breathing GI: soft, nondistended, nontender, BS normoactive MSK: no gross deformities appreciated Skin: warm, dry, no rash appreciated Neuro: alert, oriented, no focal neurologic deficit appreciated Discharge Data Allergies Allergy/AdvReac Type Severity Reaction Status Date / Time No Known Drug Allergies Allergy Verified 04/17/23 11:44 Consultations 08/25/23 17:15 ED Decision to Admit Stat Hospital Course (1) Iatrogenic hyperthyroidism: (2) Weight loss: (3) Dizziness: (4) Memory loss: (5) Constipation: (6) Diabetes: (7) Hypertension: (8) Hypercholesteremia: (9) DVT prophylaxis: (10) Discharge planning issues: Plan Iatrogenic hyperthyroidism -TSH undetectable and free T4 doubled. -most likely causing symptoms of lightheadedness, weak, dizziness, wt loss, forgetfulness, and resting heart rate. -responded well to 2.5mg IV metoprolol. -Increase metoprolol tartrate from 25mg to 50mg. Will DC triamterene/hydrochlorothiazide -No longer having symptoms after DC'ing Synthroid. -Patient at home is taking 75 mcg in the morning and then 88 mcg at 2 AM. Will continue on 75 mcg Synthroid and discontinue the 88 mcg at time of discharge. -TSH, T4, T3 in 1 week. She will follow-up with PCP within 1 week. Weight loss -Has lost about 10 kg over the past couple months. -May be related to patient's hypothyroidism, will reevaluate once thyroid is stable. Dizziness -See above, I suspect it relates to the hyperthyroidism and dehydration. -Holding triamterene/hydrochlorothiazide, received IV fluids. Memory loss -Most likely related to iatrogenic hyperthyroidism. -May also be related to anxiety. -Vit B12 and folate WNL, vit B1 pending at discharge. Constipation -Chronic. -Discussed Miralax daily for chronic constipation. Diabetes -A1c was 6.7% -f/u as outpatient. Hypertension -Increased metoprolol titrate to 50 mg twice daily. Will DC triamterene/hydrochlorothiazide at this time. Hypercholesteremia -on Pravachol, tolerating well. Continue for now. Discharge planning issues -Lives at home alone, does seem to have good family support -PT/OT okayed to return home Total Time Total Time Spent Total Time Spent (In Minutes): Please refer to attendings attestation. Discharge Plan Discharge Items Patient Disposition: Home - Self-Care Reason For Visit: HYPERTHYROIDISM Discharge Diagnosis: Hyperthyroidism Activity: Resume your previous activity Non-emergency contact: Primary Care Provider Call non-emergency contact if: your pain is worsening, your pain is unusual for you and your temperature is above 101.5 Follow-up/Referrals: Lisseth Mensah MD [Primary Care Provider] - 09/02/23 9:30 am (THIS APPOINTMENT WILL BE WITH DR GO AT THE [address] [place] [address] OFFICE) Diet: Carb Consistent or DM2 Ambulatory Orders: T3 Free (Routine) Timeframe: 1 Week Location: Determined by Patient Ordered By: Nahun Crawford T4 Free Thyroxine (Routine) Timeframe: 1 Week Location: Determined by Patient Ordered By: Nahun Crawford Thyroid Stimulating Hormone (Routine) Timeframe: 1 Week Location: Determined by Patient Ordered By: Nahun Crawford Addtl Attending Provider Instructions: You were admitted to the hospital for hyperthyroisidsm. You were treated with A discharge summary will be sent to your primary care physician to ensure continuity of care. Please bring this discharge summary with you to your next office appointment so that your provider can review it at that time. Follow-up appointments: * Make a follow-up appointment with your PCP within the next week. It is very important that you follow up with them shortly after discharge from the hospital. * Keep all your follow-up appointments as already scheduled. If you cannot make an appointment, notify your provider. Medications: Your medication list has been reviewed and reconciled upon discharge to ensure accuracy and continuity of care. An updated list of all your medications is included with your hospital discharge paperwork. Please review this list closely, and make note of any changes. * We changed the dosage of your metoprolol tartrate to your pharmacy. Take metoprolol tartrate (50mg) twice a day. * Stop levothyroxine 88mcg at this time. You shoulder continue levothyroxine 75mcg once a day and follow up with your PCP in one week. We will check a TSH, T4, and T3 in one week. * Stop your triamterene-hydrochlorothiazide. * If you have any issues filling these prescriptions, please call [phone] and ask to leave a message for Dr. Crawford. * Take your medications as instructed; do not skip a dose of your medicines. Make sure all of your doctors know every medicine you are taking (including [id number] medicines, vitamins, and supplements). Call your primary care provider before taking any new medicines (including over- the-counter medicines, vitamins, and supplements), because some of these may interact with your current medications, or may make your symptoms worse. Tell your primary care provider if you cannot afford your medications. CONTACT YOUR PRIMARY CARE PROVIDER if you experience any of the following: * Worsening of symptoms * Fever, chills, or fatigue * Difficulty following your treatment plan, or difficulty taking medications CALL 911 OR GO TO THE EMERGENCY DEPARTMENT if you experience any of the following: * Sudden, severe abdominal pain or nausea/vomiting * Severe chest pain, or chest pain that radiates (moves) to your jaw or arm * Sudden, severe shortness of breath or difficulty breathing Thank you for allowing us to participate in your care. Pending Studies at Discharge: No Stand-Alone Forms: My [facility] [employer] [place], Smoking Cessation Medications and DC Order Prescriptions: New metoprolol tartrate 50 mg Tablet 50 mg PO BID 30 Days Qty: 60 0RF Continued levothyroxine 75 mcg tablet 75 mcg PO DAILYBB aspirin 81 mg tablet,delayed release (DR/EC) 81 mg PO QAM glipizide 5 mg tablet 5 mg PO BID pravastatin 40 mg tablet 40 mg PO QPM potassium chloride 10 mEq capsule, extended release 20 meq PO QPM timolol maleate 0.25 % drops 1 drp OPB AMHS Discontinued levothyroxine 88 mcg tablet 88 mcg PO . AT 2 AM metoprolol tartrate 25 mg tablet 25 mg PO BID triamterene-hydrochlorothiazid 37.5-25 mg capsule 1 cap PO QAM Discharge Orders: Discharge Order (Routine); Ordered 08/26/23 Ordered By: Nahun Richard/Other Patient Handouts: Managing Type 2 Diabetes Admission Data Admit Date/Time: 08/25/23 18:09 Attending Provider: Zach Ivy Admit Provider: Robert Stafford Primary Care Provider: Lisseth Mensah Other Providers: Robert Stafford Other Interventions: Discharge Summary Assessment (RN) Last Done: 08/26/23 12:25 Supervising Physician Co-Signing Physician Notes Attending attestation Pt seen and examined in concert with Dr. Crawford. In agreement with the documented findings as noted in the resident documentation with any exceptions or additions as noted here. No acute complaint at present. Was able to walk the floors without assist and without symptoms. On examination, S1/S2 nl RRR no MCG. CTAB. Abd NT/ND BS+ve Iatrogenic hyperthyroidism - increased metoprolol dose to 50mg and tolerating well with control of symptoms. Reduced levothyroxine to 75mcg and recheck in 1 wk. Short term follow up with PCP. Weight loss, memory difficulties - though they could easily be attributed to hyperthyroidism, counseling provided that further w/u would be useful if symptoms persist following above. Else see resident documentation as noted. Total attending physician time spent with this patient's care on the day of discharge: 40 minutes. Resident Activity Tracking Resident Involvement: Resident Care Provided Care Provided: Adult [facility]
--- NOTE | 2023-08-26 14:12 | Electrocardiogram Report ---
Test Reason : Blood Pressure : / mmHG Vent. Rate : 126 BPM Atrial Rate : 126 BPM P-R Int : 170 ms QRS Dur : 080 ms QT Int : 286 ms P-R-T Axes : 088 068 065 degrees QTc Int : 414 ms Sinus tachycardia Otherwise normal ECG When compared with ECG of 20-JUL-2016 09:06, SC interval has decreased Confirmed by Zach Montgomery ([id number]) on 08/26/2023 2:11:58 PM Referred By: Lisseth Mensah Confirmed By:Ozzy Montgomery
== END 2023-08-26 14:42 | disposition home or self-care (01) | DRG 644 ==
LOC: ED 14:34 → 2N 18:09
DX: R42 Dizziness and giddiness; E05.80 Other thyrotoxicosis without thyrotoxic crisis or storm; E11.9 Type 2 diabetes mellitus without complications; E86.0 Dehydration; I10 Essential (primary) hypertension; Z79.82 Long term (current) use of aspirin; R00.0 Tachycardia, unspecified; Z79.899 Other long term (current) drug therapy; E78.00 Pure hypercholesterolemia, unspecified; K59.00 Constipation, unspecified; R63.4 Abnormal weight loss; E46 Unspecified protein-calorie malnutrition; R41.3 Other amnesia; Z79.890 Hormone replacement therapy

== ENCOUNTER 2023-08-31 19:21 | Inpatient (IN) ==
[2023-08-31] MEDS ORDERED: Patient's HEIGHT &/or WEIGHT Needed SCH (19:24)
[2023-08-31] MEDS ORDERED: SODIUM CHLORIDE 0.9% 500 ML IV ONE (19:40)
--- NOTE | 2023-08-31 19:46 | Emergency Department Note ---
History of Present Illness General Chief complaint: Urinary Symptoms Stated complaint: UNABLE TO URINATE OR MOVE BOWELS Time Seen by Provider: 08/31/23 19:30 Source: patient, family (Son who is at the bedside), RN notes reviewed and old records reviewed (Discharge summary from recent admission on 08-26-2023 for iatrogenic hyperthyroidism) Mode of arrival: ambulatory Limitations: no limitations History of Present Illness This patient comes in as described above. She says that starting this afternoon she does not feel like she is urinating like she should she had just small amounts. No dysuria. No blood in her urine she does have some pain across her waistline in the right upper abdomen at times but not severe no back pain she has chronic constipation for the last 6 months which is unchanged no numbness weakness her legs or buttocks. No fall or trauma no fever chills or cough. She was recently admitted and discharged after feeling weak and was tachycardic at the time and was deemed to be hyperthyroid, iatrogenic. She has a follow-up appointment with her doctor on Saturday Home Medications Medication Instructions Recorded Confirmed Type aspirin 81 mg tablet,delayed 81 mg PO QAM 11/29/20 08/25/23 History release glipizide 5 mg tablet 5 mg PO BID 11/29/20 08/25/23 History levothyroxine 75 mcg tablet 75 mcg PO DAILYBB 11/29/20 08/25/23 History pravastatin 40 mg tablet 40 mg PO QPM 11/29/20 08/25/23 History potassium chloride 10 mEq 20 meq PO QPM 08/25/23 08/25/23 History capsule,extended release timolol maleate 0.25 % eye drops 1 drp OPB AMHS 08/25/23 08/25/23 History metoprolol tartrate 50 mg tablet 50 mg PO BID 30 days #60 tabs 08/26/23 Rx Allergies Allergy/AdvReac Type Severity Reaction Status Date / Time No Known Drug Allergies Allergy Verified 04/17/23 11:44 Past Med/Surg History Medical History Pessary maintenance Hypercholesteremia Hypertension Diabetes Constipation Surgical History H/O oral surgery Family History Sister Ovarian cancer Denies family history of Breast cancer Colorectal cancer Social History Smoking Status: Never smoker Second Hand Exposure: No; Do You Dip or Chew Tobacco: No; Hx Alcohol Use: No Hx Substance Use: No Preferred Language: Israeli Communication Ability: Effective Hearing Ability: Use of Hearing Aid Accounts Payable Processor Required: No Beliefs That Will Affect Care: None Current Living Situation: Alone Feels Safe at Home: Yes Assistive Devices: Cane and Glasses Review of Systems A total of 10 systems reviewed and were otherwise negative Physical Exam Vital Signs Vital Signs - 24 hr 08/31/23 19:24 08/31/23 21:05 08/31/23 21:24 Temperature 36.3 C L Temperature Source Oral Pulse Rate 98 H 68 72 Respiratory Rate 18 18 Respiratory Effort / Characteristics Non-Labored Spontaneous Respiratory Depth Normal Respiratory Pattern Regular Blood Pressure 134/66 Blood Pressure Mean 88 Blood Pressure Position Sitting Pulse Oximetry 94 98 Oxygen Delivery Method Room Air Room Air Sepsis Recent Fever Within 48 Hours No Sepsis New/Unexplained Change in Mental Status N/A Sepsis Action Taken by Nursing No Action Required General: Well developed well nourished older female who appears in no acute distress, breathing comfortably on room air. Normal speech HEENT: Normal cephalic atraumatic. Pupils are equal round and reactive to light. Extraocular movements are intact. Oropharynx is pink with moist mucous membranes. No swelling of the mouth lips or tongue. Neck: Supple with a midline trachea. No meningeal signs or stiffness, no JVD or bruits. No Stridor. Chest: Clear to auscultation bilaterally. No wheezes or rhonchi. No increased work of breathing. Heart: Regular rate and rhythm without murmurs or gallops. Abdomen: Soft nontender, nondistended without rebound guarding or rigidity. Extremities: No cyanosis clubbing or edema. No calf tenderness or assymetry Spine/Back. Non tender to palpation. No CVA tenderness Skin: Good turgor without rashes. Neurologic exam: Cranial nerves two through 12 are intact. Motor and sensation are intact and symmetrical throughout. No numbness in the lower back or legs. Course Administered Medications Sodium Chloride (Nss) 1,000 mls @ 125 mls/hr IV .Q8H RENETTA Stop: 09/30/23 21:29 Last Admin: 08/31/23 22:13 Dose: Not Given Documented By: BS Discontinued Medications Sodium Chloride (Nss) 500 mls @ 999 mls/hr IV .Q31M ONE Stop: 08/31/23 20:10 Last Infusion: 08/31/23 21:05 Dose: Infused Documented By: Admin: 08/31/23 20:14 Dose: 999 mls/hr Documented By: GORGE Medical Decision Making Differential Diagnosis UTI, urinary retention, dehydration, electrolyte or metabolic abnormality, kidney stone, intra-abdominal process, spinal process, thyroid related disease, infection Medical Records Attestation: I reviewed the patient's medical records. Home Medications Current Medication List: was personally reviewed by me Laboratory Data Attestation: I reviewed the patient's lab results. 08/31/23 20:07 08/31/23 20:07 Lab Results 08/31/23 08/31/23 08/31/23 Range/Units 20:07 21:05 22:03 WBC 14.95 H (4.8-10.8) K/ul RBC 4.31 (4.20-5.40) M/uL Hgb 12.2 (12.0-16.0) g/dl Hct 38.0 (37.0-47.0) % MCV 88.2 (80.0-100.0) fL MCH 28.3 (25.0-34.0) pg MCHC 32.1 (32.0-36.0) g/dL RDW Std Deviation 39.4 (36.4-46.3) fL RDW Coeff of Bro 12.2 (11.5-14.5) % Plt Count 221 (130-400) K/uL MPV 10.1 (9.4-12.4) fL Sodium 140 (136-145) mmol/L Potassium 3.8 (3.5-5.1) mmol/L Chloride 106 (98-107) mmol/L Carbon Dioxide 25 (21-32) mmol/L Anion Gap 9 (3-11) BUN 36 H (6-23) mg/dl Creatinine 0.87 (0.6-1.2) mg/dl Est Cr Clr Drug Dosing Not Reportable Est GFR ( Amer) 68.9 ml/min Est GFR (Non-Af Amer) 59.5 ml/min BUN/Creatinine Ratio 41.4 H (10-20) Glucose 246 H (70-99(Fasting)) mg/dl Lactate 1.2 (0.4-2.0) mmol/L Calcium 9.3 (8.6-10.3) mg/dl Total Bilirubin 0.7 (0.2-1.0) mg/dl AST 36 (13-39) U/L ALT 36 (7-52) U/L Alkaline Phosphatase 96 (34-104) U/L Total Protein 6.3 (6.0-8.3) gm/dl Albumin 3.4 (3.4-5.0) gm/dl Globulin 2.9 (2.5-4.0) gm/dl Albumin/Globulin Ratio 1.2 (0.9-2) Lipase 11 (11-82) U/L TSH 0.014 L (0.300-4.500) uIu/ml Free T4 1.86 H (0.61-1.60) ng/dl Free T3 2.51 (2.3-4.2) pg/ml Urine Color Dark Yellow Urine Appearance Clear (Clear) Urine pH 5.5 (4.5-7.5) Ur Specific [place] 1.025 (1.000-1.030) Urine Protein 2+ H (Negative) Urine Glucose (UA) 2+ H (Negative) Urine Ketones 1+ H (Negative) Urine Blood Trace-intact H (Negative) Urine Nitrite Negative (Negative) Urine Bilirubin 1+ H (Negative) Urine Urobilinogen Positive H (Negative) Ur Leukocyte Esterase Negative (Negative) Urine RBC 5-10 H (0-4) /hpf Urine WBC 10-30 H (0-5) /hpf Ur Epithelial Cells 10-20 H (0-5) /lpf Urine Bacteria 1+ H (Negative) Hyaline Casts 5-10 H (0-5) /lpf Granular Casts 5-10 H (0) /lpf Imaging Data Attestation: I personally reviewed and interpreted this imaging study as follows: My Impression: CT stone study-I do not see any obstructive uropathy however she does have a and very enlarged inflamed gallbladder concerning for cholecystitis Radiologist's Impression: Abdomen/Pelvis CT 08/31/23 19:39 Exam(s): CT ABDOMEN + PELVIS Without Contrast EXAM: CT Abdomen and Pelvis Without Intravenous Contrast CLINICAL HISTORY: Reason for exam: abdpain, difficulty urinating. TECHNIQUE: Axial computed tomography images of the abdomen and pelvis without intravenous contrast. CTDI is 17.94 mGy and DLP is 785.43 mGy-cm. Automated exposure control was utilized for the study. A dose lowering technique was utilized adhering to the principles of ALARA. COMPARISON: None. FINDINGS: Lung bases: Unremarkable. No mass. No consolidation. Heart: Unremarkable. No cardiomegaly. No significant pericardial effusion. Normal cardiac size with mild coronary artery calcifications. ABDOMEN: Liver: Unremarkable. Gallbladder and bile ducts: Multiple gallstones with thickening of gallbladder wall and surrounding inflammation compatible with acute cholecystitis. No ductal dilation. Pancreas: Unremarkable. No ductal dilation. Spleen: Unremarkable. No splenomegaly. Adrenals: Unremarkable. No mass. Kidneys and ureters: Unremarkable. No obstructing stones. No hydronephrosis. Stomach and bowel: Thickening of the wall of the distal stomach more so towards the antrum with masslike density, cannot exclude neoplasm. Diverticulosis throughout the colon, more severe through the sigmoid with no signs of diverticulitis pain. No obstruction. PELVIS: Appendix: Normal appendix . Bladder: Unremarkable. No stones. Reproductive: Anteverted uterus. Calcifications with the periphery of the uterus which may indicate vascular etiology versus small calcified uterine fibroids. ABDOMEN and PELVIS: Intraperitoneal space: Unremarkable. No free air. No significant fluid collection. Bones/joints: Degenerative disease of the spine. Minimal anterolisthesis of L4 and L5 with no pars defect. No acute fracture. No dislocation. Soft tissues: Unremarkable. Vasculature: Calcified atherosclerotic disease of aorta with no aneurysm. Lymph nodes: Unremarkable. No enlarged lymph nodes. IMPRESSION: 1. Acute cholecystitis, clinical correlation recommended. If indicated, this can be further evaluated with right upper quadrant ultrasound. 2. Possible distal gastritis with distal antral mass not excluded. If indicated, follow-up with upper endoscopy recommended . 3. No acute appendicitis. Diverticulosis with no signs of diverticulitis. No bowel obstruction. Electronically signed by: Cordelia Stanley MD 08/31/23 21:23 PM [facility] Narrative This patient comes in as scribed above. She was just in the hospital after having hyperthyroidism now she has having some trouble urinating today no dysuria she just feels like it is frequent small amounts. She was placed on a gambling monitor room A2, IV access with established and she was hydrated with 500 cc IV normal saline bolus. she looks well and has normal vital signs . her abdomen is benign though she does have some tenderness at times. She has nothing to suggest cauda equina syndrome on exam or by history. I did order blood work as well as urinalysis, I ordered a bladder scan as well as a CT stone study. She was reassessed frequently. I talked to the son at length he was also in the room. Labs were obtained he is a white count of 14 which is new from discharge. She is afebrile here. Her LFTs are normal. She has no sign of electrolyte or metabolic abnormalities. She did however have a very abnormal looking gallbladder on CAT scan. She also has a urine which does look potentially infected. She has no urinary retention we did this bladder residual void she was given Zosyn 4.5 g IV she has received IV fluids here. He had blood cultures and lactic acid. I did consult Dr. Plascencia, from surgery, he saw the patient ER and does feel medicine should admit the patient. Dr. Summers was also consulted and saw the patient ER will admit the patient for these measures. Continuous gambling monitor, orders placed in EMR for case gambling monitor: Upon my evaluation patient noted to be in normal sinus rhythm rate of 95 Impression & Plan Acute cholecystitis, Iatrogenic hyperthyroidism, Weakness, Urinary symptom or sign, Abdominal pain Discharge Plan Visit Data Chief Complaint: Urinary Symptoms Stated Complaint: UNABLE TO URINATE OR MOVE BOWELS ED Provider: Terrell Jacobo Discharge Problem: Acute cholecystitis, Iatrogenic hyperthyroidism, Weakness, Urinary symptom or sign, Abdominal pain Forms Stand Alone Forms: My [facility] [employer] Prescriptions Prescriptions: No Action levothyroxine 75 mcg tablet 75 mcg PO DAILYBB aspirin 81 mg tablet,delayed release (DR/EC) 81 mg PO QAM glipizide 5 mg tablet 5 mg PO BID pravastatin 40 mg tablet 40 mg PO QPM potassium chloride 10 mEq capsule, extended release 20 meq PO QPM timolol maleate 0.25 % drops 1 drp OPB AMHS metoprolol tartrate 50 mg Tablet 50 mg PO BID 30 Days Qty: 60 0RF Referrals Referrals: Lisseth Mensah MD [Primary Care Provider] - Discharge Problem: Abdominal pain Qualifiers: Abdominal location: unspecified location Qualified Code(s): R10.9 - Unspecified abdominal pain
[2023-08-31 20:17] LABS: Hemoglobin 12.2 g/dl (12.0-16.0); Mean Corpuscular Hemoglobin 28.3 pg (25.0-34.0); Mean Corpuscular Hgb Conc 32.1 g/dL (32.0-36.0); Mean Corpuscular Volume 88.2 fL (80.0-100.0); Mean Platelet Volume 10.1 fL (9.4-12.4); Platelet Count 221 K/uL (130-400); RDW Coefficient of Variation 12.2 % (11.5-14.5); RDW Standard Deviation 39.4 fL (36.4-46.3); Red Blood Count 4.31 M/uL (4.20-5.40); White Blood Count 14.95 K/ul (4.8-10.8)
[2023-08-31 20:36] LABS: Alanine Aminotransferase 36 U/L (7-52); Albumin Globulin Ratio 1.2 (0.9-2); Albumin Level 3.4 gm/dl (3.4-5.0); Alkaline Phosphatase 96 U/L (34-104); Anion Gap 9 (3-11); Aspartate Aminotransferase 36 U/L (13-39); BUN Creatinine Ratio 41.4 (10-20); Bilirubin,Total 0.7 mg/dl (0.2-1.0); Blood Urea Nitrogen 36 mg/dl (6-23); Calcium 9.3 mg/dl (8.6-10.3); Carbon Dioxide 25 mmol/L (21-32); Chloride 106 mmol/L (98-107); Est GFR (African American) 68.9 ml/min; Est GFR (Non-African American) 59.5 ml/min; Globulin 2.9 gm/dl (2.5-4.0); Glucose 246 mg/dl (70-99(Fasting)); Lipase 11 U/L (11-82); Potassium 3.8 mmol/L (3.5-5.1); Sodium 140 mmol/L (136-145); Total Protein 6.3 gm/dl (6.0-8.3)
[2023-08-31 20:50] LABS: Thyroid Stimulating Hormone 0.014 uIu/ml (0.300-4.500)
--- NOTE | 2023-08-31 21:24 | CT Scan Report ---
Exam(s): CT ABDOMEN + PELVIS Without Contrast EXAM: CT Abdomen and Pelvis Without Intravenous Contrast CLINICAL HISTORY: Reason for exam: abdpain, difficulty urinating. TECHNIQUE: Axial computed tomography images of the abdomen and pelvis without intravenous contrast. CTDI is 17.94 mGy and DLP is 785.43 mGy-cm. Automated exposure control was utilized for the study. A dose lowering technique was utilized adhering to the principles of ALARA. COMPARISON: None. FINDINGS: Lung bases: Unremarkable. No mass. No consolidation. Heart: Unremarkable. No cardiomegaly. No significant pericardial effusion. Normal cardiac size with mild coronary artery calcifications. ABDOMEN: Liver: Unremarkable. Gallbladder and bile ducts: Multiple gallstones with thickening of gallbladder wall and surrounding inflammation compatible with acute cholecystitis. No ductal dilation. Pancreas: Unremarkable. No ductal dilation. Spleen: Unremarkable. No splenomegaly. Adrenals: Unremarkable. No mass. Kidneys and ureters: Unremarkable. No obstructing stones. No hydronephrosis. Stomach and bowel: Thickening of the wall of the distal stomach more so towards the antrum with masslike density, cannot exclude neoplasm. Diverticulosis throughout the colon, more severe through the sigmoid with no signs of diverticulitis pain. No obstruction. PELVIS: Appendix: Normal appendix . Bladder: Unremarkable. No stones. Reproductive: Anteverted uterus. Calcifications with the periphery of the uterus which may indicate vascular etiology versus small calcified uterine fibroids. ABDOMEN and PELVIS: Intraperitoneal space: Unremarkable. No free air. No significant fluid collection. Bones/joints: Degenerative disease of the spine. Minimal anterolisthesis of L4 and L5 with no pars defect. No acute fracture. No dislocation. Soft tissues: Unremarkable. Vasculature: Calcified atherosclerotic disease of aorta with no aneurysm. Lymph nodes: Unremarkable. No enlarged lymph nodes. IMPRESSION: 1. Acute cholecystitis, clinical correlation recommended. If indicated, this can be further evaluated with right upper quadrant ultrasound. 2. Possible distal gastritis with distal antral mass not excluded. If indicated, follow-up with upper endoscopy recommended . 3. No acute appendicitis. Diverticulosis with no signs of diverticulitis. No bowel obstruction. Electronically signed by: Cordelia Stanley MD 08/31/23 21:23 PM
[2023-08-31 21:26] LABS: T4 Free Thyroxine 1.86 ng/dl (0.61-1.60)
[2023-08-31 21:28] LABS: Appearance Urine Clear (Clear); Bilirubin Urine 1+ (Negative); Blood Urine Trace-intact (Negative); Color Urine Dark Yellow; Glucose Urine UA 2+ (Negative); Ketones Urine 1+ (Negative); Leukocyte Esterase Urine Negative (Negative); Nitrite Urine Negative (Negative); Protein Urine 2+ (Negative); Specific Gravity Urine 1.025 (1.000-1.030); Urobilinogen Urine Positive (Negative); pH Urine 5.5 (4.5-7.5)
[2023-08-31] MEDS ORDERED: PIPERACILLIN/TAZOBACTAM 4.5 GM/100 ML BAG IV ONE (21:30)
[2023-08-31] MEDS ORDERED: SODIUM CHLORIDE 0.9% 1,000 ML IV SCH (21:30)
--- NOTE | 2023-08-31 21:57 | Surgery Consultation ---
Date of Consultation August 31, 2023 Assessment & Plan (1) Acute cholecystitis: 88-year-old woman with acute cholecystitis. It is quite severe. Given her frailty, I do not feel she is a good candidate for operative therapy. We will admit her to medicine and place her on IV fluids and IV antibiotics. We will consider percutaneous cholecystostomy tube on Saturday with interventional radiology. We will continue to follow while she is here. History of Present Illness Reason for Consultation: Acute cholecystitis Requesting Physician: Terrell Jacobo MD Attending Physician: Terrell Jacobo MD History of Present Illness Very pleasant 88-year-old woman presents with fatigue, loss of appetite, and urinary symptoms. She does endorse pain in her abdomen. She denies any prior abdominal surgery. She denies fevers. She has not been able to eat or drink significant amounts over the last week. CT scan demonstrates severe acute cholecystitis as well as thickening of the gastric antrum and possible antral/duodenal mass. Allergies Allergy/AdvReac Type Severity Reaction Status Date / Time No Known Drug Allergies Allergy Verified 04/17/23 11:44 Home Medications Medication Instructions Recorded Confirmed Type aspirin 81 mg tablet,delayed 81 mg PO QAM 11/29/20 08/25/23 History release glipizide 5 mg tablet 5 mg PO BID 11/29/20 08/25/23 History levothyroxine 75 mcg tablet 75 mcg PO DAILYBB 11/29/20 08/25/23 History pravastatin 40 mg tablet 40 mg PO QPM 11/29/20 08/25/23 History potassium chloride 10 mEq 20 meq PO QPM 08/25/23 08/25/23 History capsule,extended release timolol maleate 0.25 % eye drops 1 drp OPB [facility] 08/25/23 08/25/23 History metoprolol tartrate 50 mg tablet 50 mg PO BID 30 days #60 tabs 08/26/23 Rx Patient History Medical History Pessary maintenance Hypercholesteremia Hypertension Diabetes Constipation Surgical History H/O oral surgery Family History Sister Ovarian cancer Denies family history of Breast cancer Colorectal cancer Social History Smoking Status: Never smoker Second Hand Exposure: No; Do You Dip or Chew Tobacco: No; Hx Alcohol Use: No Hx Substance Use: No Preferred Language: Tanzanian Communication Ability: Effective Hearing Ability: Use of Hearing Aid Technician Plant And Maintenance Required: No Beliefs That Will Affect Care: None Current Living Situation: Alone Feels Safe at Home: Yes Assistive Devices: Cane and Glasses Review of Systems Review of Systems: All systems reviewed & are unremarkable except as noted in HPI & below Physical Exam Constitutional: WD/WN, vitals as above Eyes: PERRL, conjunctivae normal, anicteric sclerae Neck: trachea midline, no thyromegaly Respiratory: normal respiratory effort; no respiratory distress and no labored breathing Cardiovascular: Rate/Rhythm: regular rate and regular rhythm Gastrointestinal (Abdomen): Inspection/Auscultation: abdomen normal to inspection; abdomen not distended Percussion/Palpation: + abdomen tender (Mild RUQ) and abdomen soft; no guarding and abdomen not rigid Skin: no rashes, warm and dry Psychiatric: A+Ox3, euthymic affect Results & Data Vital Signs (Past 12 Hours) Vital Signs Temp Pulse Resp BP Pulse Ox O2 Del Method 08/31/23 21:24 72 18 98 Room Air 08/31/23 21:05 68 08/31/23 19:24 36.3 C L 98 H 18 134/66 94 Room Air Laboratory Results 08/31/23 08/31/23 Range/Units 21:05 20:07 WBC 14.95 H (4.8-10.8) K/ul RBC 4.31 (4.20-5.40) M/uL Hgb 12.2 (12.0-16.0) g/dl Hct 38.0 (37.0-47.0) % MCV 88.2 (80.0-100.0) fL MCH 28.3 (25.0-34.0) pg MCHC 32.1 (32.0-36.0) g/dL RDW Std Deviation 39.4 (36.4-46.3) fL RDW Coeff of Bro 12.2 (11.5-14.5) % Plt Count 221 (130-400) K/uL MPV 10.1 (9.4-12.4) fL Sodium 140 (136-145) mmol/L Potassium 3.8 (3.5-5.1) mmol/L Chloride 106 (98-107) mmol/L Carbon Dioxide 25 (21-32) mmol/L Anion Gap 9 (3-11) BUN 36 H (6-23) mg/dl Creatinine 0.87 (0.6-1.2) mg/dl Est Cr Clr Drug Dosing Not Reportable Est GFR ( Amer) 68.9 ml/min Est GFR (Non-Af Amer) 59.5 ml/min BUN/Creatinine Ratio 41.4 H (10-20) Glucose 246 H (70-99(Fasting)) mg/dl Calcium 9.3 (8.6-10.3) mg/dl Total Bilirubin 0.7 (0.2-1.0) mg/dl AST 36 (13-39) U/L ALT 36 (7-52) U/L Alkaline Phosphatase 96 (34-104) U/L Total Protein 6.3 (6.0-8.3) gm/dl Albumin 3.4 (3.4-5.0) gm/dl Globulin 2.9 (2.5-4.0) gm/dl Albumin/Globulin Ratio 1.2 (0.9-2) Lipase 11 (11-82) U/L TSH 0.014 L (0.300-4.500) uIu/ml Free T4 1.86 H (0.61-1.60) ng/dl Free T3 2.51 (2.3-4.2) pg/ml Urine Color Dark Yellow Urine Appearance Clear (Clear) Urine pH 5.5 (4.5-7.5) Ur Specific [place] 1.025 (1.000-1.030) Urine Protein 2+ H (Negative) Urine Glucose (UA) 2+ H (Negative) Urine Ketones 1+ H (Negative) Urine Blood Trace-intact H (Negative) Urine Nitrite Negative (Negative) Urine Bilirubin 1+ H (Negative) Urine Urobilinogen Positive H (Negative) Ur Leukocyte Esterase Negative (Negative) Urine RBC Pending Urine WBC Pending Ur Epithelial Cells Pending Urine Bacteria Pending Diagnostic Findings 08/31/23 08/31/23 Range/Units 21:05 20:07 WBC 14.95 H (4.8-10.8) K/ul RBC 4.31 (4.20-5.40) M/uL Hgb 12.2 (12.0-16.0) g/dl Hct 38.0 (37.0-47.0) % MCV 88.2 (80.0-100.0) fL MCH 28.3 (25.0-34.0) pg MCHC 32.1 (32.0-36.0) g/dL RDW Std Deviation 39.4 (36.4-46.3) fL RDW Coeff of Bro 12.2 (11.5-14.5) % Plt Count 221 (130-400) K/uL MPV 10.1 (9.4-12.4) fL Sodium 140 (136-145) mmol/L Potassium 3.8 (3.5-5.1) mmol/L Chloride 106 (98-107) mmol/L Carbon Dioxide 25 (21-32) mmol/L Anion Gap 9 (3-11) BUN 36 H (6-23) mg/dl Creatinine 0.87 (0.6-1.2) mg/dl Est Cr Clr Drug Dosing Not Reportable Est GFR ( Amer) 68.9 ml/min Est GFR (Non-Af Amer) 59.5 ml/min BUN/Creatinine Ratio 41.4 H (10-20) Glucose 246 H (70-99(Fasting)) mg/dl Calcium 9.3 (8.6-10.3) mg/dl Total Bilirubin 0.7 (0.2-1.0) mg/dl AST 36 (13-39) U/L ALT 36 (7-52) U/L Alkaline Phosphatase 96 (34-104) U/L Total Protein 6.3 (6.0-8.3) gm/dl Albumin 3.4 (3.4-5.0) gm/dl Globulin 2.9 (2.5-4.0) gm/dl Albumin/Globulin Ratio 1.2 (0.9-2) Lipase 11 (11-82) U/L TSH 0.014 L (0.300-4.500) uIu/ml Free T4 1.86 H (0.61-1.60) ng/dl Free T3 2.51 (2.3-4.2) pg/ml Urine Color Dark Yellow Urine Appearance Clear (Clear) Urine pH 5.5 (4.5-7.5) Ur Specific [place] 1.025 (1.000-1.030) Urine Protein 2+ H (Negative) Urine Glucose (UA) 2+ H (Negative) Urine Ketones 1+ H (Negative) Urine Blood Trace-intact H (Negative) Urine Nitrite Negative (Negative) Urine Bilirubin 1+ H (Negative) Urine Urobilinogen Positive H (Negative) Ur Leukocyte Esterase Negative (Negative) Urine RBC Pending Urine WBC Pending Ur Epithelial Cells Pending Urine Bacteria Pending
[2023-08-31 21:59] LABS: Bacteria Urine 1+ (Negative)
--- NOTE | 2023-08-31 22:30 | History & Physical Report ---
Date of Service August 31, 2023 Assessment & Plan (1) Acute cholecystitis: (2) Weakness: (3) Constipation: (4) Urinary symptom or sign: (5) Iatrogenic hyperthyroidism: (6) Diabetes: (7) Hypertension: (8) Hypercholesteremia: (9) Abdominal pain: Plan Acute cholecystitis- NPO Main symptom presentation of generalized weakness, abdominal pain, constipation and difficulty urinating associated with decreased oral intake Patient found to be a poor surgical candidate as noted by general surgery during evaluation in the ED Zosyn 4.5 g IV every 8 hours Zofran 4 mg IV every 6 hours as needed Pantoprazole 40 mg IV daily Status post 500 mL NSS bolus in the ED NSS at 80 mL/h General surgery will continue to follow Will need a consult placed to interventional radiology for possible cholecystostomy tube on Saturday Hypertension- Hold aspirin, metoprolol tartrate, potassium chloride. Hydralazine 10 mg IV every 4 hours as needed for systolic blood pressure greater than 160 Diabetes mellitus- Hold glipizide Placed on Accu-Cheks with NovoLog SSI Iatrogenic hyperthyroidism/hypothyroidism- Patient will be benefited by remaining off Synthroid while n.p.o. 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 She was most recently admitted to [facility] from 08/25-08/26/2023 for symptoms of weakness, dizziness and increased heart rate, during which time heart rate remained entirely normal. This time patient did also report some abdominal discomfort, and her son reports that she is tender on her right upper quadrant area. Workup in the emergency department included a CT scan of abdomen and pelvis, with suggested acute cholecystitis, and possible distal gastritis and/or antral mass. The patient was seen by Dr. Jude Plascencia from general surgery, who felt that the patient was a poor candidate for general surgery, and patient is being admitted to bed and the hospitalist service for antibiotics and consults to interventional radiology for possible cholecystostomy tube Allergies Allergy/AdvReac Type Severity Reaction Status Date / Time No Known Drug Allergies Allergy Verified 04/17/23 11:44 Home Medications Medication Instructions Recorded Confirmed Type aspirin 81 mg tablet,delayed 81 mg PO QAM 11/29/20 08/25/23 History release glipizide 5 mg tablet 5 mg PO BID 11/29/20 08/25/23 History levothyroxine 75 mcg tablet 75 mcg PO DAILYBB 11/29/20 08/25/23 History pravastatin 40 mg tablet 40 mg PO QPM 11/29/20 08/25/23 History potassium chloride 10 mEq 20 meq PO QPM 08/25/23 08/25/23 History capsule,extended release timolol maleate 0.25 % eye drops 1 drp OPB [facility] 08/25/23 08/25/23 History metoprolol tartrate 50 mg tablet 50 mg PO BID 30 days #60 tabs 08/26/23 Rx Past Med/Surg History Medical History Pessary maintenance Hypercholesteremia Hypertension Diabetes Constipation Surgical History H/O oral surgery Family History Sister Ovarian cancer Denies family history of Breast cancer Colorectal cancer Social History Smoking Status: Never smoker Second Hand Exposure: No; Do You Dip or Chew Tobacco: No; Hx Alcohol Use: No Hx Substance Use: No Preferred Language: [place] Communication Ability: Effective Hearing Ability: Use of Hearing Aid Deck Cadet Required: No Beliefs That Will Affect Care: None Current Living Situation: Alone Other Information That Helps Us Care for You: No Feels Safe at Home: Yes Safety Concerns: Feels Safe At This Time Assistive Devices: Cane, Denture - Upper, Denture - Lower and Glasses Review of Systems Review of Systems: The patient denies chest pain, palpitations, shortness of breath, dyspnea on exertion, cough, lower extremity swelling, sore throat, fevers, chills, blood in urine or stool, urinary frequency or urgency, headache, memory loss, loss of consciousness, rash, abnormal bruising or bleeding, imbalance, focal weakness, numbness or tingling in arms or legs, generalized arthralgias or myalgias, back or neck pain, or night sweats. The review of systems is otherwise negative other than for that already noted above, and at least 10 systems have been reviewed. Physical Exam Physical Exam: The patient is awake, alert and oriented 3, well developed and well nourished, normocephalic and atraumatic, lying in bed and in no acute distress. HEENT--PERRL, EOMI, mucous membranes and oropharynx mildly dry. Neck--supple. No JVD. No bruits. Thyroid normal, trachea midline, no adenopathy. Heart--normal S1 and S2. No murmurs, rubs or gallops. Lungs--clear bilaterally, no respiratory distress, no accessory muscle use. Abdomen--normal bowel sounds and soft. Tender right upper quadrant. Nondistended, no hernias or masses, no organomegaly. Extremities--no cyanosis or clubbing. No edema. Dermatologic--normal skin turgor, normal color, no abnormal lymph nodes, no rash. Neurologic--cranial nerves II through XII grossly intact. Rheumatologic--normal range of motion. Psychiatric--normal affect. Results & Data Results & Data Vital Signs (Past 12 Hours) Vital Signs Temp Pulse Resp BP Pulse Ox O2 Del Method 08/31/23 21:24 72 18 98 Room Air 08/31/23 21:05 68 08/31/23 19:24 36.3 C L 98 H 18 134/66 94 Room Air Laboratory Results Laboratory Results WBC 14.95 K/ul (4.8-10.8) H 08/31/23 20:07 RBC 4.31 M/uL (4.20-5.40) 08/31/23 20:07 Hgb 12.2 g/dl (12.0-16.0) 08/31/23 20:07 Hct 38.0 % (37.0-47.0) 08/31/23 20:07 MCV 88.2 fL (80.0-100.0) 08/31/23 20:07 MCH 28.3 pg (25.0-34.0) 08/31/23 20:07 MCHC 32.1 g/dL (32.0-36.0) 08/31/23 20:07 RDW Std Deviation 39.4 fL (36.4-46.3) 08/31/23 20:07 RDW Coeff of Bro 12.2 % (11.5-14.5) 08/31/23 20:07 Plt Count 221 K/uL (130-400) 08/31/23 20:07 MPV 10.1 fL (9.4-12.4) 08/31/23 20:07 Sodium 140 mmol/L (136-145) 08/31/23 20:07 Potassium 3.8 mmol/L (3.5-5.1) 08/31/23 20:07 Chloride 106 mmol/L (98-107) 08/31/23 20:07 Carbon Dioxide 25 mmol/L (21-32) 08/31/23 20:07 Anion Gap 9 (3-11) 08/31/23 20:07 BUN 36 mg/dl (6-23) H 08/31/23 20:07 Creatinine 0.87 mg/dl (0.6-1.2) 08/31/23 20:07 Est Cr Clr Drug Dosing Not Reportable 08/31/23 20:07 Est GFR ( Amer) 68.9 ml/min 08/31/23 20:07 Est GFR (Non-Af Amer) 59.5 ml/min 08/31/23 20:07 BUN/Creatinine Ratio 41.4 (10-20) H 08/31/23 20:07 Glucose 246 mg/dl (70-99(Fasting)) H 08/31/23 20:07 POC Glucose 147 mg/dl (70-99) H 09/01/23 01:10 Lactate 1.2 mmol/L (0.4-2.0) 08/31/23 22:03 Calcium 9.3 mg/dl (8.6-10.3) 08/31/23 20:07 Total Bilirubin 0.7 mg/dl (0.2-1.0) 08/31/23 20:07 AST 36 U/L (13-39) 08/31/23 20:07 ALT 36 U/L (7-52) 08/31/23 20:07 Alkaline Phosphatase 96 U/L (34-104) 08/31/23 20:07 Total Protein 6.3 gm/dl (6.0-8.3) 08/31/23 20:07 Albumin 3.4 gm/dl (3.4-5.0) 08/31/23 20:07 Globulin 2.9 gm/dl (2.5-4.0) 08/31/23 20:07 Albumin/Globulin Ratio 1.2 (0.9-2) 08/31/23 20:07 Lipase 11 U/L (11-82) 08/31/23 20:07 TSH 0.014 uIu/ml (0.300-4.500) L 08/31/23 20:07 Free T4 1.86 ng/dl (0.61-1.60) H 08/31/23 20:07 Free T3 2.51 pg/ml (2.3-4.2) 08/31/23 20:07 Urine Color Dark Yellow 08/31/23 21:05 Urine Appearance Clear (Clear) 08/31/23 21:05 Urine pH 5.5 (4.5-7.5) 08/31/23 21:05 Ur Specific [place] 1.025 (1.000-1.030) 08/31/23 21:05 Urine Protein 2+ (Negative) H 08/31/23 21:05 Urine Glucose (UA) 2+ (Negative) H 08/31/23 21:05 Urine Ketones 1+ (Negative) H 08/31/23 21:05 Urine Blood Trace-intact (Negative) H 08/31/23 21:05 Urine Nitrite Negative (Negative) 08/31/23 21:05 Urine Bilirubin 1+ (Negative) H 08/31/23 21:05 Urine Urobilinogen Positive (Negative) H 08/31/23 21:05 Ur Leukocyte Esterase Negative (Negative) 08/31/23 21:05 Urine RBC 5-10 /hpf (0-4) H 08/31/23 21:05 Urine WBC 10-30 /hpf (0-5) H 08/31/23 21:05 Ur Epithelial Cells 10-20 /lpf (0-5) H 08/31/23 21:05 Urine Bacteria 1+ (Negative) H 08/31/23 21:05 Hyaline Casts 5-10 /lpf (0-5) H 08/31/23 21:05 Granular Casts 5-10 /lpf (0) H 08/31/23 21:05 Impressions Abdomen/Pelvis CT 08/31/23 19:39 Exam(s): CT ABDOMEN + PELVIS Without Contrast EXAM: CT Abdomen and Pelvis Without Intravenous Contrast CLINICAL HISTORY: Reason for exam: abdpain, difficulty urinating. TECHNIQUE: Axial computed tomography images of the abdomen and pelvis without intravenous contrast. CTDI is 17.94 mGy and DLP is 785.43 mGy-cm. Automated exposure control was utilized for the study. A dose lowering technique was utilized adhering to the principles of ALARA. COMPARISON: None. FINDINGS: Lung bases: Unremarkable. No mass. No consolidation. Heart: Unremarkable. No cardiomegaly. No significant pericardial effusion. Normal cardiac size with mild coronary artery calcifications. ABDOMEN: Liver: Unremarkable. Gallbladder and bile ducts: Multiple gallstones with thickening of gallbladder wall and surrounding inflammation compatible with acute cholecystitis. No ductal dilation. Pancreas: Unremarkable. No ductal dilation. Spleen: Unremarkable. No splenomegaly. Adrenals: Unremarkable. No mass. Kidneys and ureters: Unremarkable. No obstructing stones. No hydronephrosis. Stomach and bowel: Thickening of the wall of the distal stomach more so towards the antrum with masslike density, cannot exclude neoplasm. Diverticulosis throughout the colon, more severe through the sigmoid with no signs of diverticulitis pain. No obstruction. PELVIS: Appendix: Normal appendix . Bladder: Unremarkable. No stones. Reproductive: Anteverted uterus. Calcifications with the periphery of the uterus which may indicate vascular etiology versus small calcified uterine fibroids. ABDOMEN and PELVIS: Intraperitoneal space: Unremarkable. No free air. No significant fluid collection. Bones/joints: Degenerative disease of the spine. Minimal anterolisthesis of L4 and L5 with no pars defect. No acute fracture. No dislocation. Soft tissues: Unremarkable. Vasculature: Calcified atherosclerotic disease of aorta with no aneurysm. Lymph nodes: Unremarkable. No enlarged lymph nodes. IMPRESSION: 1. Acute cholecystitis, clinical correlation recommended. If indicated, this can be further evaluated with right upper quadrant ultrasound. 2. Possible distal gastritis with distal antral mass not excluded. If indicated, follow-up with upper endoscopy recommended . 3. No acute appendicitis. Diverticulosis with no signs of diverticulitis. No bowel obstruction. Electronically signed by: Cordelia Stanley MD 08/31/23 21:23 PM Code Status & VTE Plan Code Status Full code VTE Prophylaxis Plan VTE Prophylaxis will be ordered: Yes PG Care Time/CCT Total # of Minutes Spent Total Time Spent with Patient: Total time spent is greater than 50% in coordination of care (as documented) at patient's floor/unit and/or counseling patient: Coding Level of Care Code 84683 INT INP/OBS CARE MIN Diagnoses Acute cholecystitis K81.0 Weakness R53.1 Constipation K59.00 Urinary symptom or sign R39.9 Iatrogenic hyperthyroidism E05.80 Diabetes E11.9 Hypertension I10 Hypercholesteremia E78.00 Abdominal pain R10.9 Abdominal location: unspecified location (9) Abdominal pain Abdominal location: unspecified location Qualified Code(s): R10.9 - Unspecified abdominal pain
[2023-09-01] MEDS ORDERED: GLUCAGON FOR INJ 1 MG VIAL SQ PRN (00:21)
[2023-09-01] MEDS ORDERED: ACETAMINOPHEN 325 MG TAB PO PRN (00:21)
[2023-09-01] MEDS ORDERED: ONDANSETRON INJ 2 MG/ML 2 ML VIAL IV PRN (00:21)
[2023-09-01] MEDS ORDERED: CARBOHYDRATES FOR HYPOGLYCEMIA PO PRN (00:21)
[2023-09-01] MEDS ORDERED: GLUCOSE 10 TAB/TUBE PO PRN (00:21)
[2023-09-01] MEDS ORDERED: DEXTROSE 50% 50 ML SYRINGE IV PRN (00:21)
[2023-09-01] MEDS ORDERED: GLUCOSE 40% GEL 15 GM TUBE PO PRN (00:21)
[2023-09-01] MEDS: NSS + 20MEQ KCL 20 MEQ/1,000 ML BAG IV SCH ×3 (01:17→22:58)
[2023-09-01] MEDS: INSULIN ASPART PER UNIT CHARGE SC SCH ×5 (01:28→21:01)
[2023-09-01] MEDS: PIPERACILLIN/TAZOBACTAM 4.5 GM in DEXTROSE 5% MINI-B 100 ML IV SCH ×3 (03:48→20:32)
[2023-09-01 06:13] LABS: Basophils # (auto) 0.03 K/uL (0.00-0.20); Basophils % (auto) 0.3 %; Eosinophils # (auto) 0.24 K/uL (0.00-0.50); Hematocrit (blood only) 32.5 % (37.0-47.0); Hemoglobin 10.4 g/dl (12.0-16.0); Immature Granulocytes # (auto) 0.08 K/uL (0.01-0.20); Immature Granulocytes % (auto) 0.7 %; Lymphocytes # (auto) 1.78 K/uL (1.20-3.40); Lymphocytes % (auto) 14.9 %; Mean Corpuscular Volume 87.4 fL (80.0-100.0); Mean Platelet Volume 10.5 fL (9.4-12.4); Monocytes % (auto) 9.2 %; Neutrophils # (auto) 8.73 K/uL (1.40-6.50); Neutrophils % (auto) 72.9 %; Platelet Count 220 K/uL (130-400); RDW Coefficient of Variation 12.4 % (11.5-14.5); RDW Standard Deviation 39.8 fL (36.4-46.3); Red Blood Count 3.72 M/uL (4.20-5.40); White Blood Count 11.96 K/ul (4.8-10.8)
[2023-09-01 06:36] LABS: Albumin Globulin Ratio 1.3 (0.9-2); Bilirubin,Total 0.6 mg/dl (0.2-1.0); Calcium 8.9 mg/dl (8.6-10.3); Creatinine Clr Calc Pharmacy 39.7 ml/min; Est GFR (African American) 75.2 ml/min; Est GFR (Non-African American) 64.8 ml/min; Globulin 2.3 gm/dl (2.5-4.0); Magnesium 1.8 mg/dl (1.7-2.4); Potassium 3.6 mmol/L (3.5-5.1); Total Protein 5.3 gm/dl (6.0-8.3)
[2023-09-01] MEDS ORDERED: Nursing to Pharmacy Communication SCH (08:30)
[2023-09-01] MEDS: TIMOLOL MALEATE 0.25% OP SOLN 5 ML BTL OPB SCH ×2 (09:07→20:28)
[2023-09-01] MEDS: HEPARIN SOD 5,000 UNIT/0.5 ML VIAL SQ SCH ×2 (09:08→20:29)
[2023-09-01] MEDS: PANTOprazole 40 MG in SYRINGE 0 ML IV SCH (10:50)
--- NOTE | 2023-09-01 23:07 | Hospitalist Progress Note ---
Date of Service September 01, 2023 Assessment & Plan (1) Acute cholecystitis: (2) Weakness: (3) Constipation: (4) Urinary symptom or sign: (5) Iatrogenic hyperthyroidism: (6) Diabetes: (7) Hypertension: (8) Hypercholesteremia: (9) Abdominal pain: Plan Acute cholecystitis- Main symptom presentation of generalized weakness, abdominal pain, constipation and difficulty urinating associated with decreased oral intake Patient found to be a poor surgical candidate as noted by general surgery during evaluation in the ED Zosyn 4.5 g IV every 8 hours Zofran 4 mg IV every 6 hours as needed Pantoprazole 40 mg IV daily Status post 500 mL NSS bolus in the ED NSS at 80 mL/h General surgery will continue to follow Will need a consult placed to interventional radiology for possible cholecystostomy tube on Saturday. Patient tolerated diet on 09/01 NPO after midnight. Hypertension- Hold aspirin, metoprolol tartrate, potassium chloride. Hydralazine 10 mg IV every 4 hours as needed for systolic blood pressure greater than 160 Diabetes mellitus- Hold glipizide Placed on Accu-Cheks with NovoLog SSI Iatrogenic hyperthyroidism/hypothyroidism- Patient will be benefited by remaining off Synthroid while n.p.o. Admission and Anticipated Discharge Date Admission Date: August 31, 2023 Subjective Patient reports feeling well. Review of Systems Review of Systems: All systems reviewed & are unremarkable except as noted in HPI & below Physical Exam Physical Exam: The patient is awake, alert and oriented 3, well developed and well nourished, normocephalic and atraumatic, lying in bed and in no acute distress. HEENT--PERRL, EOMI, mucous membranes and oropharynx mildly dry. Neck--supple. No JVD. No bruits. Thyroid normal, trachea midline, no adenopathy. Heart--normal S1 and S2. No murmurs, rubs or gallops. Lungs--clear bilaterally, no respiratory distress, no accessory muscle use. Abdomen--normal bowel sounds and soft. Tender right upper quadrant. Nondistended, no hernias or masses, no organomegaly. Extremities--no cyanosis or clubbing. No edema. Dermatologic--normal skin turgor, normal color, no abnormal lymph nodes, no rash. Neurologic--cranial nerves II through XII grossly intact. Rheumatologic--normal range of motion. Psychiatric--normal affect. Results & Data Results & Data Vital Signs (Past 12 Hours) Vital Signs Temp Pulse Resp BP Pulse Ox O2 Del Method 09/01/23 21:25 36.6 C 18 181/75 H 91 Room Air 09/01/23 18:16 148/72 H 09/01/23 15:46 36.8 C 72 18 172/80 H 97 Room Air PG Care Time/CCT Total # of Minutes Spent Total Time Spent with Patient: Total time spent is greater than 50% in coordination of care (as documented) at patient's floor/unit and/or counseling patient: Coding Level of Care Code 10216 SUB INP/OBS CARE 2/35MIN Diagnoses Acute cholecystitis K81.0 Weakness R53.1 Constipation K59.00 Urinary symptom or sign R39.9 Iatrogenic hyperthyroidism E05.80 Diabetes E11.9 Hypertension I10 Hypercholesteremia E78.00 Abdominal pain R10.9 Abdominal location: unspecified location (9) Abdominal pain Abdominal location: unspecified location Qualified Code(s): R10.9 - Unspecified abdominal pain
[2023-09-02] MEDS: PIPERACILLIN/TAZOBACTAM 4.5 GM in DEXTROSE 5% MINI-B 100 ML IV SCH ×3 (04:30→19:43)
[2023-09-02] MEDS ORDERED: Nursing to Pharmacy Communication SCH ×2 (04:30→16:45)
[2023-09-02] MEDS: INSULIN ASPART PER UNIT CHARGE SC SCH ×4 (05:16→21:16)
[2023-09-02 07:33] LABS: Basophils # (auto) 0.05 K/uL (0.00-0.20); Basophils % (auto) 0.8 %; Eosinophils # (auto) 0.19 K/uL (0.00-0.50); Eosinophils % (auto) 2.9 %; Hematocrit (blood only) 30.7 % (37.0-47.0); Hemoglobin 9.8 g/dl (12.0-16.0); Immature Granulocytes # (auto) 0.04 K/uL (0.01-0.20); Immature Granulocytes % (auto) 0.6 %; Lymphocytes % (auto) 18.4 %; Mean Corpuscular Hemoglobin 28.3 pg (25.0-34.0); Mean Corpuscular Hgb Conc 31.9 g/dL (32.0-36.0); Mean Corpuscular Volume 88.7 fL (80.0-100.0); Mean Platelet Volume 10.5 fL (9.4-12.4); Monocytes # (auto) 0.43 K/uL (0.11-0.59); Monocytes % (auto) 6.6 %; Neutrophils # (auto) 4.62 K/uL (1.40-6.50); Neutrophils % (auto) 70.7 %; Platelet Count 216 K/uL (130-400); RDW Coefficient of Variation 12.4 % (11.5-14.5); RDW Standard Deviation 39.8 fL (36.4-46.3); Red Blood Count 3.46 M/uL (4.20-5.40); White Blood Count 6.53 K/ul (4.8-10.8)
[2023-09-02 07:50] LABS: Albumin Globulin Ratio 1.2 (0.9-2); Albumin Level 2.6 gm/dl (3.4-5.0); Bilirubin,Total 0.5 mg/dl (0.2-1.0); Calcium 8.4 mg/dl (8.6-10.3); Creatinine Clr Calc Pharmacy 44.1 ml/min; Est GFR (African American) 85.2 ml/min; Est GFR (Non-African American) 73.5 ml/min; Globulin 2.2 gm/dl (2.5-4.0); Magnesium 1.7 mg/dl (1.7-2.4); Potassium 3.9 mmol/L (3.5-5.1); Total Protein 4.8 gm/dl (6.0-8.3)
[2023-09-02] MEDS: TIMOLOL MALEATE 0.25% OP SOLN 5 ML BTL OPB SCH ×2 (08:56→19:44)
[2023-09-02] MEDS: HEPARIN SOD 5,000 UNIT/0.5 ML VIAL SQ SCH ×2 (10:26→19:43)
[2023-09-02] MEDS: NSS + 20MEQ KCL 20 MEQ/1,000 ML BAG IV SCH (11:30)
[2023-09-02] MEDS: PANTOprazole 40 MG in SYRINGE 0 ML IV SCH (11:30)
[2023-09-02] MEDS: METOPROLOL TARTRATE 50 MG TAB PO SCH (18:25)
[2023-09-02] MEDS: hydrALAZINE HCL 20 MG/ML VIAL IV PRN (21:00)
--- NOTE | 2023-09-02 22:33 | Hospitalist Progress Note ---
Date of Service September 02, 2023 Assessment & Plan (1) Acute cholecystitis: (2) Weakness: (3) Constipation: (4) Urinary symptom or sign: (5) Iatrogenic hyperthyroidism: (6) Diabetes: (7) Hypertension: (8) Hypercholesteremia: (9) Abdominal pain: Plan Acute cholecystitis- Main symptom presentation of generalized weakness, abdominal pain, constipation and difficulty urinating associated with decreased oral intake Patient found to be a poor surgical candidate as noted by general surgery during evaluation in the ED Zosyn 4.5 g IV every 8 hours Zofran 4 mg IV every 6 hours as needed Pantoprazole 40 mg IV daily Status post 500 mL NSS bolus in the ED NSS at 80 mL/h General surgery will continue to follow Will need a consult placed to interventional radiology for possible cholecystostomy tube on Saturday. Patient tolerated diet on 09/01 Patient NPo on 09/02 for possible procedure however, this will be completed on 09/05. Hypertension- Hold aspirin, metoprolol tartrate, potassium chloride. Hydralazine 10 mg IV every 4 hours as needed for systolic blood pressure greater than 160 Diabetes mellitus- Hold glipizide Placed on Accu-Cheks with NovoLog SSI Iatrogenic hyperthyroidism/hypothyroidism- Patient will be benefited by remaining off Synthroid while n.p.o. Admission and Anticipated Discharge Date Admission Date: August 31, 2023 Subjective 88 yo female reports no new symptoms. She is asking for food. Review of Systems Review of Systems: All systems reviewed & are unremarkable except as noted in HPI & below Physical Exam Physical Exam: AFVSS NAD A&Ox3 Abd soft NT Results & Data Results & Data Vital Signs (Past 12 Hours) Vital Signs Temp Pulse Resp BP BP Pulse Ox O2 Del Method 09/02/23 20:45 36.8 C 65 16 209/68 H 95 Room Air 09/02/23 18:00 81 188/62 H 09/02/23 15:33 36.8 C 85 18 210/81 H 214/78 H 93 Room Air PG Care Time/CCT Total # of Minutes Spent Total Time Spent with Patient: Total time spent is greater than 50% in coordination of care (as documented) at patient's floor/unit and/or counseling patient: Coding Level of Care Code 78457 SUB INP/OBS CARE 2/35MIN Diagnoses Acute cholecystitis K81.0 Weakness R53.1 Constipation K59.00 Urinary symptom or sign R39.9 Iatrogenic hyperthyroidism E05.80 Diabetes E11.9 Hypertension I10 Hypercholesteremia E78.00 Abdominal pain R10.9 Abdominal location: unspecified location (9) Abdominal pain Abdominal location: unspecified location Qualified Code(s): R10.9 - Unspecified abdominal pain
[2023-09-03] MEDS ORDERED: amLODIPine BESYLATE 5 MG TAB PO ONE (00:32)
[2023-09-03] MEDS: PIPERACILLIN/TAZOBACTAM 4.5 GM in DEXTROSE 5% MINI-B 100 ML IV SCH ×3 (05:32→20:40)
--- NOTE | 2023-09-03 07:40 | Surgery Progress Note ---
Date of Service September 03, 2023 Assessment & Plan (1) Acute cholecystitis: Plan: 88-year-old woman with acute cholecystitis. It appears quite severe on CT scan. Given her frailty, I do not feel she is a good candidate for operative therapy. We will admit her to medicine and place her on IV fluids and IV antibiotics. Perc dayana tube scheduled for . We will continue to follow while she is here. Admission and Anticipated Discharge Date Admission Date: August 31, 2023 Subjective doing well; resting comfortably in bed this am; no nausea/vomiting Physical Exam Physical Exam: AFVSS NAD A&Ox3 Abd soft NT Results & Data Vital Signs (Past 12 Hours) Vital Signs Temp Pulse Resp BP Pulse Ox O2 Del Method 09/03/23 00:25 191/67 H 09/02/23 22:57 197/69 H 09/02/23 20:45 36.8 C 65 16 209/68 H 95 Room Air
[2023-09-03 07:57] LABS: Basophils # (auto) 0.05 K/uL (0.00-0.20); Basophils % (auto) 0.7 %; Eosinophils # (auto) 0.27 K/uL (0.00-0.50); Eosinophils % (auto) 3.8 %; Hematocrit (blood only) 31.9 % (37.0-47.0); Hemoglobin 10.2 g/dl (12.0-16.0); Immature Granulocytes # (auto) 0.04 K/uL (0.01-0.20); Immature Granulocytes % (auto) 0.6 %; Lymphocytes # (auto) 1.77 K/uL (1.20-3.40); Lymphocytes % (auto) 25.1 %; Mean Corpuscular Hemoglobin 28.1 pg (25.0-34.0); Mean Corpuscular Volume 87.9 fL (80.0-100.0); Monocytes # (auto) 0.63 K/uL (0.11-0.59); Monocytes % (auto) 8.9 %; Neutrophils # (auto) 4.28 K/uL (1.40-6.50); Neutrophils % (auto) 60.9 %; Platelet Count 270 K/uL (130-400); RDW Coefficient of Variation 12.1 % (11.5-14.5); RDW Standard Deviation 39.5 fL (36.4-46.3); Red Blood Count 3.63 M/uL (4.20-5.40); White Blood Count 7.04 K/ul (4.8-10.8)
[2023-09-03] MEDS: METOPROLOL TARTRATE 50 MG TAB PO SCH ×2 (08:03→20:41)
[2023-09-03] MEDS: TIMOLOL MALEATE 0.25% OP SOLN 5 ML BTL OPB SCH ×2 (08:04→20:41)
[2023-09-03] MEDS: amLODIPine BESYLATE 5 MG TAB PO SCH (08:04)
[2023-09-03 08:43] LABS: Albumin Globulin Ratio 1.2 (0.9-2); Albumin Level 2.7 gm/dl (3.4-5.0); Bilirubin,Total 0.5 mg/dl (0.2-1.0); Calcium 8.8 mg/dl (8.6-10.3); Creatinine Clr Calc Pharmacy 42.9 ml/min; Est GFR (African American) 82.5 ml/min; Est GFR (Non-African American) 71.2 ml/min; Globulin 2.2 gm/dl (2.5-4.0); Magnesium 1.6 mg/dl (1.7-2.4); Potassium 3.6 mmol/L (3.5-5.1); Total Protein 4.9 gm/dl (6.0-8.3)
[2023-09-03] MEDS: INSULIN ASPART PER UNIT CHARGE SC SCH ×4 (08:57→21:16)
[2023-09-03] MEDS: HEPARIN SOD 5,000 UNIT/0.5 ML VIAL SQ SCH ×2 (10:10→20:41)
[2023-09-03 10:26] LABS: Prothrombin Time 11.4 Seconds (9.0-12.0)
[2023-09-03] MEDS: PANTOprazole 40 MG in SYRINGE 0 ML IV SCH (12:11)
--- NOTE | 2023-09-03 14:14 | Ultrasound Report ---
ULTRASOUND RIGHT UPPER QUADRANT ABDOMEN CLINICAL HISTORY: Acute cholecystitis. COMPARISON STUDY: Abdominal CT dated 08/31/2023 TECHNIQUE: Real-time, grayscale, and color flow sonography of the right upper quadrant of the abdomen was performed. Images are reviewed in the transverse and longitudinal planes. FINDINGS: Liver: The liver is normal in size and heterogeneous and echotexture. There is mild intrahepatic bili oscar ductal dilatation. The main portal vein is patent. Gallbladder: The gallbladder is distended and filled with stones/sludge. The gallbladder wall is thic kened and edematous, measuring up to 7 mm. No pericholecystic fluid is clearly identified. A sonograp hic Ann's sign is reportedly absent. The common bile duct measures up to 0.7 cm in diameter. Pancreas: Visualized portions of the pancreatic head and body are normal in appearance. Right kidney: Survey images of the right kidney demonstrate mild cortical atrophy. Echotexture is nor mal. There is no hydronephrosis. Ascites: None. Pleural spaces: A small right pleural effusion is noted. IMPRESSION: 1. Cholelithiasis and biliary sludge with evidence of acute cholecystitis. Surgical assessment is adv ised. 2. There is mild intrahepatic biliary ductal dilatation. 3. A small right pleural effusion is new from the 08/31/2023 CT scan. ACT 112: Negative or not required by law. Electronically signed by: Nahun Anders M.D. 09/03/2023 2:12 PM
--- NOTE | 2023-09-03 22:24 | Hospitalist Progress Note ---
Date of Service September 03, 2023 Assessment & Plan (1) Acute cholecystitis: (2) Weakness: (3) Constipation: (4) Urinary symptom or sign: (5) Iatrogenic hyperthyroidism: (6) Diabetes: (7) Hypertension: (8) Hypercholesteremia: (9) Abdominal pain: Plan Acute cholecystitis- Main symptom presentation of generalized weakness, abdominal pain, constipation and difficulty urinating associated with decreased oral intake Patient found to be a poor surgical candidate as noted by general surgery during evaluation in the ED Zosyn 4.5 g IV every 8 hours Zofran 4 mg IV every 6 hours as needed Pantoprazole 40 mg IV daily Status post 500 mL NSS bolus in the ED NSS at 80 mL/h General surgery will continue to follow Will need a consult placed to interventional radiology for possible cholecystostomy tube on 09/05 Patient tolerated diet on 09/03 Ordered U/S RUQ to confirm IV may be able to place cholecystectomy tube Hypertension- Hold aspirin, metoprolol tartrate, potassium chloride. Hydralazine 10 mg IV every 4 hours as needed for systolic blood pressure greater than 160 Diabetes mellitus- Hold glipizide Placed on Accu-Cheks with NovoLog SSI Iatrogenic hyperthyroidism/hypothyroidism- Patient will be benefited by remaining off Synthroid while n.p.o. Admission and Anticipated Discharge Date Admission Date: August 31, 2023 Subjective Patient reports no new symptoms Review of Systems Review of Systems: All systems reviewed & are unremarkable except as noted in HPI & below Physical Exam Physical Exam: NAD A&Ox3 Abd soft NT Results & Data Results & Data Vital Signs (Past 12 Hours) Vital Signs Temp Pulse Resp BP Pulse Ox O2 Del Method 09/03/23 20:32 36.8 C 16 163/66 H 98 Room Air 09/03/23 16:30 36.6 C 66 18 155/67 H 94 Room Air PG Care Time/CCT Total # of Minutes Spent Total Time Spent with Patient: Total time spent is greater than 50% in coordination of care (as documented) at patient's floor/unit and/or counseling patient: Coding Level of Care Code 52964 SUB INP/OBS CARE 2/35MIN Diagnoses Acute cholecystitis K81.0 Weakness R53.1 Constipation K59.00 Urinary symptom or sign R39.9 Iatrogenic hyperthyroidism E05.80 Diabetes E11.9 Hypertension I10 Hypercholesteremia E78.00 Abdominal pain R10.9 Abdominal location: unspecified location (9) Abdominal pain Abdominal location: unspecified location Qualified Code(s): R10.9 - Unspecified abdominal pain
[2023-09-03] MEDS: hydrALAZINE HCL 20 MG/ML VIAL IV PRN (23:07)
[2023-09-04] MEDS: PIPERACILLIN/TAZOBACTAM 4.5 GM in DEXTROSE 5% MINI-B 100 ML IV SCH ×3 (05:18→21:08)
[2023-09-04] MEDS: INSULIN ASPART PER UNIT CHARGE SC SCH ×4 (08:05→21:18)
[2023-09-04 08:40] LABS: Hematocrit (blood only) 33.3 % (37.0-47.0); Mean Corpuscular Hemoglobin 28.4 pg (25.0-34.0); Mean Corpuscular Volume 85.8 fL (80.0-100.0); Mean Platelet Volume 10.1 fL (9.4-12.4); Platelet Count 266 K/uL (130-400); RDW Coefficient of Variation 12.2 % (11.5-14.5); RDW Standard Deviation 38.2 fL (36.4-46.3); Red Blood Count 3.88 M/uL (4.20-5.40)
--- NOTE | 2023-09-04 08:44 | Surgery Progress Note ---
Date of Service September 04, 2023 Assessment & Plan (1) Acute cholecystitis: Plan: 88-year-old woman with acute cholecystitis. It appears quite severe on CT scan. Given her frailty, I do not feel she is a good candidate for operative therapy. We will admit her to medicine and place her on IV fluids and IV antibiotics. Perc dayana tube scheduled for . We will continue to follow while she is here. 09/04/2023 Resting comfortably in bed. Tolerating diet. I do not believe she requires percutaneous cholecystostomy tube placement. I would recommend switching to oral antibiotics. She may be discharged to home in the next day or 2. Admission and Anticipated Discharge Date Admission Date: August 31, 2023 Subjective Patient reports no new symptoms - tolerated diet yesterday Physical Exam Physical Exam: AFVSS NAD A&Ox3 Abd soft NT Results & Data Vital Signs (Past 12 Hours) Vital Signs Temp Pulse Resp BP BP Pulse Ox O2 Del Method 09/04/23 07:12 36.6 C 70 18 168/57 H 93 Room Air 09/03/23 23:51 163/64 H 09/03/23 23:07 69 168/64 H
[2023-09-04] MEDS ORDERED: Nursing to Pharmacy Communication SCH ×2 (08:45→09:30)
[2023-09-04] MEDS: METOPROLOL TARTRATE 50 MG TAB PO SCH ×2 (08:46→21:06)
[2023-09-04] MEDS: amLODIPine BESYLATE 5 MG TAB PO SCH (08:46)
[2023-09-04] MEDS: TIMOLOL MALEATE 0.25% OP SOLN 5 ML BTL OPB SCH ×2 (08:46→21:07)
[2023-09-04] MEDS: HEPARIN SOD 5,000 UNIT/0.5 ML VIAL SQ SCH ×2 (08:48→21:07)
[2023-09-04 08:59] LABS: Bilirubin,Total 0.5 mg/dl (0.2-1.0); Calcium 8.8 mg/dl (8.6-10.3); Potassium 3.5 mmol/L (3.5-5.1)
[2023-09-04 09:05] LABS: Albumin Globulin Ratio 1.3 (0.9-2); Est GFR (African American) 64.4 ml/min; Est GFR (Non-African American) 55.6 ml/min; Globulin 2.3 gm/dl (2.5-4.0); Total Protein 5.3 gm/dl (6.0-8.3)
[2023-09-04] MEDS ORDERED: MAGNESIUM SULFATE / D5W 1 GM/100 ML BAG IV ONE (09:07)
[2023-09-04] MEDS: PANTOprazole 40 MG in SYRINGE 0 ML IV SCH (09:26)
--- NOTE | 2023-09-04 18:38 | Hospitalist Progress Note ---
Date of Service September 04, 2023 Assessment & Plan (1) Acute cholecystitis: (2) Weakness: (3) Constipation: (4) Urinary symptom or sign: (5) Iatrogenic hyperthyroidism: (6) Diabetes: (7) Hypertension: (8) Hypercholesteremia: (9) Abdominal pain: Plan Acute cholecystitis- Main symptom presentation of generalized weakness, abdominal pain, constipation and difficulty urinating associated with decreased oral intake Patient found to be a poor surgical candidate as noted by general surgery during evaluation in the ED Zosyn 4.5 g IV every 8 hours Zofran 4 mg IV every 6 hours as needed Pantoprazole 40 mg IV daily Status post 500 mL NSS bolus in the ED NSS at 80 mL/h General surgery will continue to follow consult placed to interventional radiology for possible cholecystostomy tube on 09/05 HOwever, given clincial improvement, may not have procedure as per surgeon and IR. Patient tolerated diet on 09/04 Hypertension- resumed BP meds, holding aspirin Hydralazine 10 mg IV every 4 hours as needed for systolic blood pressure greater than 160 Diabetes mellitus- Hold glipizide Placed on Accu-Cheks with NovoLog SSI Iatrogenic hyperthyroidism/hypothyroidism- Patient will be benefited by remaining off Synthroid while n.p.o. Still not resumed. Admission and Anticipated Discharge Date Admission Date: August 31, 2023 Subjective Patient reports feeling better. Patient has no new complaints. Review of Systems Review of Systems: All systems reviewed & are unremarkable except as noted in HPI & below Physical Exam Physical Exam: NAD A&Ox3 Abd soft NT Results & Data Results & Data Vital Signs (Past 12 Hours) Vital Signs Temp Pulse Resp BP BP Pulse Ox O2 Del Method 09/04/23 16:58 160/68 H 09/04/23 14:45 36.6 C 73 16 163/70 H 94 Room Air 09/04/23 10:00 158/72 H 09/04/23 07:12 36.6 C 70 18 168/57 H 93 Room Air PG Care Time/CCT Total # of Minutes Spent Total Time Spent with Patient: Total time spent is greater than 50% in coordination of care (as documented) at patient's floor/unit and/or counseling patient: Coding Level of Care Code 87942 SUB INP/OBS CARE 2/35MIN Diagnoses Acute cholecystitis K81.0 Weakness R53.1 Constipation K59.00 Urinary symptom or sign R39.9 Iatrogenic hyperthyroidism E05.80 Diabetes E11.9 Hypertension I10 Hypercholesteremia E78.00 Abdominal pain R10.9 Abdominal location: unspecified location (9) Abdominal pain Abdominal location: unspecified location Qualified Code(s): R10.9 - Unspecified abdominal pain
[2023-09-04] MEDS: hydrALAZINE HCL 20 MG/ML VIAL IV PRN ×2 (21:15→22:06)
[2023-09-05] MEDS: PIPERACILLIN/TAZOBACTAM 4.5 GM in DEXTROSE 5% MINI-B 100 ML IV SCH ×3 (04:58→20:12)
[2023-09-05 08:08] LABS: Albumin Globulin Ratio 1.3 (0.9-2); Albumin Level 2.8 gm/dl (3.4-5.0); BUN Creatinine Ratio 15.6 (10-20); Bilirubin,Total 0.4 mg/dl (0.2-1.0); Calcium 8.7 mg/dl (8.6-10.3); Creatinine Clr Calc Pharmacy 35.7 ml/min; Est GFR (African American) 66.2 ml/min; Est GFR (Non-African American) 57.1 ml/min; Globulin 2.2 gm/dl (2.5-4.0); Potassium 3.3 mmol/L (3.5-5.1)
--- NOTE | 2023-09-05 08:34 | Hospitalist Progress Note ---
Date of Service September 05, 2023 Assessment & Plan (1) Acute cholecystitis: Plan: Acute cholecystitis-presented with abdominal pain and constipation no fever, no leukocytosis negative blood cultures Gen surgery evaluation, recommends medical management due to operative risk Zosyn 4.5 g IV every 8 hours Zofran 4 mg IV every 6 hours as needed Pantoprazole 40 mg IV daily hold aspirin General surgery has signed off Patient tolerated diet on 09/04 surgery feels no need for cholecystomy tube, advancing diet (2) Diabetes: Plan: chronic stable resume glipizide 09/06/23 SSI for high treatment only (3) Hypertension: Plan: chronic and stable home meds metoprolol and amlodopine (4) Iatrogenic hyperthyroidism: Plan: resume Synthroid (5) Constipation: Plan: ordering senna Admission and Anticipated Discharge Date Admission Date: August 31, 2023 Subjective pt is without complaints of abdominal pain tolerating diet but not had a full meal yet Physical Exam Physical Exam: awake and alert, no jaundice abd is soft and non tender, no ruq tenderness, nabs soft Results & Data Results & Data Vital Signs (Past 12 Hours) Vital Signs Temp Pulse Resp BP BP Pulse Ox O2 Del Method 09/05/23 07:34 97.9 F 71 16 151/84 H 95 Room Air 09/05/23 02:05 133/52 L 09/04/23 22:03 60 174/50 H 09/04/23 20:44 97.5 F L 79 16 182/64 H 94 Room Air Laboratory Results review chemistry, supplemented low potassium PG Care Time/CCT Total # of Minutes Spent Total Time Spent with Patient: Total time spent is greater than 50% in coordination of care (as documented) at patient's floor/unit and/or counseling patient: Coding Level of Care Code 34992 SUB INP/OBS CARE 3/50MIN Diagnoses Acute cholecystitis K81.0 Diabetes E11.9 Hypertension I10 Iatrogenic hyperthyroidism E05.80 Constipation K59.00
[2023-09-05] MEDS: METOPROLOL TARTRATE 50 MG TAB PO SCH ×2 (09:01→21:02)
[2023-09-05] MEDS: amLODIPine BESYLATE 5 MG TAB PO SCH (09:01)
[2023-09-05] MEDS: TIMOLOL MALEATE 0.25% OP SOLN 5 ML BTL OPB SCH ×2 (09:02→21:02)
[2023-09-05] MEDS: INSULIN ASPART PER UNIT CHARGE SC SCH ×4 (09:02→21:00)
[2023-09-05] MEDS: HEPARIN SOD 5,000 UNIT/0.5 ML VIAL SQ SCH ×2 (09:02→21:02)
[2023-09-05] MEDS: POTASSIUM CHLORIDE CRTAB 20 MEQ TABCR PO SCH ×2 (09:09→21:01)
[2023-09-05 09:15] LABS: Magnesium 1.8 mg/dl (1.7-2.4)
[2023-09-05] MEDS: PANTOprazole 40 MG in SYRINGE 0 ML IV SCH (11:57)
--- NOTE | 2023-09-05 12:34 | Surgery Progress Note ---
Date of Service September 05, 2023 Assessment & Plan (1) Acute cholecystitis: Plan: 88-year-old woman with acute cholecystitis. It appears quite severe on CT scan. Given her frailty, I do not feel she is a good candidate for operative therapy. We will admit her to medicine and place her on IV fluids and IV antibiotics. Perc dayana tube scheduled for . We will continue to follow while she is here. 09/04/2023 Resting comfortably in bed. Tolerating diet. I do not believe she requires percutaneous cholecystostomy tube placement. I would recommend switching to oral antibiotics. She may be discharged to home in the next day or 2. 09/05/2023 doing very well. Tolerating diet. She may be discharged to home on oral antibiotics. Follow up in clinic in 1-2 weeks. We will sign off for now. Call with any questions or concerns Admission and Anticipated Discharge Date Admission Date: August 31, 2023 Subjective Doing well this morning. No pain. Tolerating diet. Physical Exam Physical Exam: AFVSS NAD A&Ox3 Abd soft NT Results & Data Vital Signs (Past 12 Hours) Vital Signs Temp Pulse Resp BP BP Pulse Ox O2 Del Method 09/05/23 11:26 36.5 C 84 16 162/69 H 93 Room Air 09/05/23 07:34 36.6 C 71 16 151/84 H 95 Room Air 09/05/23 02:05 133/52 L Laboratory Results 09/05/23 09/05/23 09/05/23 Range/Units 11:30 07:28 06:55 Sodium 142 (136-145) mmol/L Potassium 3.3 L (3.5-5.1) mmol/L Chloride 110 H (98-107) mmol/L Carbon Dioxide 25 (21-32) mmol/L Anion Gap 7 (3-11) BUN 14 (6-23) mg/dl Creatinine 0.90 (0.6-1.2) mg/dl Est Cr Clr Drug Dosing 35.7 ml/min Est GFR ( Amer) 66.2 ml/min Est GFR (Non-Af Amer) 57.1 ml/min BUN/Creatinine Ratio 15.6 (10-20) Glucose 87 (70-99(Fasting)) mg/dl POC Glucose 137 H 90 (70-99) mg/dl Calcium 8.7 (8.6-10.3) mg/dl Magnesium 1.8 (1.7-2.4) mg/dl Total Bilirubin 0.4 (0.2-1.0) mg/dl AST 64 H (13-39) U/L ALT 34 (7-52) U/L Alkaline Phosphatase 65 (34-104) U/L Total Protein 5.0 L (6.0-8.3) gm/dl Albumin 2.8 L (3.4-5.0) gm/dl Globulin 2.2 L (2.5-4.0) gm/dl Albumin/Globulin Ratio 1.3 (0.9-2) 09/04/23 09/04/23 Range/Units 20:37 16:44 Sodium (136-145) mmol/L Potassium (3.5-5.1) mmol/L Chloride (98-107) mmol/L Carbon Dioxide (21-32) mmol/L Anion Gap (3-11) BUN (6-23) mg/dl Creatinine (0.6-1.2) mg/dl Est Cr Clr Drug Dosing ml/min Est GFR ( Amer) ml/min Est GFR (Non-Af Amer) ml/min BUN/Creatinine Ratio (10-20) Glucose (70-99(Fasting)) mg/dl POC Glucose 224 H 151 H (70-99) mg/dl Calcium (8.6-10.3) mg/dl Magnesium (1.7-2.4) mg/dl Total Bilirubin (0.2-1.0) mg/dl AST (13-39) U/L ALT (7-52) U/L Alkaline Phosphatase (34-104) U/L Total Protein (6.0-8.3) gm/dl Albumin (3.4-5.0) gm/dl Globulin (2.5-4.0) gm/dl Albumin/Globulin Ratio (0.9-2)
[2023-09-05] MEDS ORDERED: SENNA 8.6 MG TAB PO ONE (16:07)
[2023-09-05] MEDS: hydrALAZINE HCL 20 MG/ML VIAL IV PRN (21:47)
[2023-09-06] MEDS: PIPERACILLIN/TAZOBACTAM 4.5 GM in DEXTROSE 5% MINI-B 100 ML IV SCH (04:42)
[2023-09-06] MEDS ORDERED: LEVOTHYROXINE SODIUM 75 MCG TABLET PO SCH (06:30)
[2023-09-06] MEDS ORDERED: glipiZIDE 5 MG TAB PO SCH (07:30)
[2023-09-06 07:57] LABS: Albumin Globulin Ratio 1.2 (0.9-2); Albumin Level 2.7 gm/dl (3.4-5.0); BUN Creatinine Ratio 15.6 (10-20); Bilirubin,Total 0.4 mg/dl (0.2-1.0); Calcium 8.6 mg/dl (8.6-10.3); Creatinine Clr Calc Pharmacy 33.5 ml/min; Est GFR (African American) 61.2 ml/min; Est GFR (Non-African American) 52.8 ml/min; Globulin 2.3 gm/dl (2.5-4.0); Potassium 3.9 mmol/L (3.5-5.1)
[2023-09-06] MEDS: METOPROLOL TARTRATE 50 MG TAB PO SCH (07:59)
[2023-09-06] MEDS: POTASSIUM CHLORIDE CRTAB 20 MEQ TABCR PO SCH (07:59)
[2023-09-06] MEDS: TIMOLOL MALEATE 0.25% OP SOLN 5 ML BTL OPB SCH (08:00)
[2023-09-06] MEDS: amLODIPine BESYLATE 5 MG TAB PO SCH (08:00)
[2023-09-06] MEDS: INSULIN ASPART PER UNIT CHARGE SC SCH (08:01)
[2023-09-06] MEDS: HEPARIN SOD 5,000 UNIT/0.5 ML VIAL SQ SCH (08:01)
--- NOTE | 2023-09-06 17:42 | Discharge Summary ---
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 She was most recently admitted to [facility] from 08/25-08/26/2023 for symptoms of weakness, dizziness and increased heart rate, during which time heart rate remained entirely normal. This time patient did also report some abdominal discomfort, and her son reports that she is tender on her right upper quadrant area. Workup in the emergency department included a CT scan of abdomen and pelvis, with suggested acute cholecystitis, and possible distal gastritis and/or antral mass. The patient was seen by Dr. Jude Plascencia from general surgery, who felt that the patient was a poor candidate for general surgery, and patient is being admitted to bed and the hospitalist service for antibiotics and consults to interventional radiology for possible c holecystostomy tube Principal Diagnosis cholecystitis Discharge Exam pt is awake and alert abd is soft non tender nabs Discharge Data Allergies Allergy/AdvReac Type Severity Reaction Status Date / Time No Known Drug Allergies Allergy Verified 04/17/23 11:44 Consultations 08/31/23 22:22 ED Decision to Admit Stat Ordered Studies 08/31/23 19:39 CT stones [CT abd pelvis wo con] Stat 09/03/23 08:52 US RUQ [US liver] Routine Hospital Course (1) Acute cholecystitis: Acute cholecystitis-presented with abdominal pain and constipation no fever, no leukocytosis negative blood cultures Gen surgery evaluation, recommends medical management due to operative risk will be home on Augmentin and follow up with outpt labs and pcp General surgery has signed off Patient tolerated diet on 09/04 surgery feels no need for cholecystomy tube, tolerating advancing diet (2) Diabetes: chronic stable resume glipizide (3) Hypertension: chronic and stable home meds metoprolol and amlodopine (4) Iatrogenic hyperthyroidism: resume Synthroid (5) Constipation: ordering senna Total Time Total Time Spent Total Time Spent (In Minutes): It required greater than 30 minutes to prepare this patient for discharge. Discharge Plan Discharge Items Patient Disposition: Home - Self-Care Reason For Visit: CHOLECYSTITIS Discharge Diagnosis: Cholecystitis, treated by medical management Activity: Resume your previous activity Non-emergency contact: Primary Care Provider Call non-emergency contact if: your symptoms worsen Follow-up/Referrals: Lisseth Mensah MD [Primary Care Provider] - 09/16/23 11:05 am (Your follow-up appointment will be with Dr. Landon at the [address] [place] [id number] office. Thank you! ) Diet: Low Fat Ambulatory Orders: Comprehensive Metabolic Panel (Routine) Timeframe: 3 Days Location: Determined by Patient Ordered By: Jayy Eubanks Attending Provider Instructions: You have been diagnosed with an infection of your gall bladder called cholecystitis please have blood checked on Saturday09/09/[address] Vallecillo Surgery did evaluate you and felt it would be best to treat with antibiotics, you will be given antibiotics to take at home I you develop a fever over 100F, nausea and vomiting, or worsened abdominal pain, please return to the Hospital [employer] Provider Instructions: Your blood pressure was elevated during your hospital stay, discuss this with your primary care provider to see if when you recover you should be on a additional blood pressure medication Pending Studies at Discharge: No Stand-Alone Forms: My [facility] [employer], Smoking Cessation Medications and DC Order Prescriptions: New amoxicillin-pot clavulanate 875-125 mg tablet 1 tab PO BID Qty: 14 0RF Continued levothyroxine 75 mcg tablet 75 mcg PO DAILYBB aspirin 81 mg tablet,delayed release (DR/EC) 81 mg PO QAM glipizide 5 mg tablet 5 mg PO BID pravastatin 40 mg tablet 40 mg PO QPM potassium chloride 10 mEq capsule, extended release 20 meq PO QPM timolol maleate 0.25 % drops 1 drp OPB [facility] metoprolol tartrate 50 mg Tablet 50 mg PO BID 30 Days Qty: 60 0RF Discharge Orders: Discharge Order (Routine); Ordered 09/06/23 Ordered By: Jayy Richard/Other Patient Handouts: Anatomy of the Digestive System, ED Cholecystitis, Presumed Admission Data Admit Date/Time: 08/31/23 22:29 Attending Provider: Jayy Gaytan Admit Provider: Hood Mcrae Primary Care Provider: Lisseth Mensah Other Providers: Hood Mcrae Other Interventions: Discharge Summary Assessment (RN) Last Done: 09/06/23 10:26 Coding Level of Care Code 87355 INP/OBS DISCH >30 MIN Diagnoses Acute cholecystitis K81.0 Diabetes E11.9 Hypertension I10 Iatrogenic hyperthyroidism E05.80 Constipation K59.00
== END 2023-09-06 12:10 | disposition home or self-care (01) | DRG 446 ==
LOC: ED 19:21 → SUATTDRO 22:29 → 3N 22:29

== ENCOUNTER 2024-03-02 10:37 | Inpatient (IN) ==
--- NOTE | 2024-03-02 10:51 | Emergency Department Note ---
Impression & Plan Intracranial hemorrhage, Acute spont intraparenchymal hemorrhage assoc w/ hypertension, End of life care ED Provider Note Name: FELECIA WEATHERS Age: 88 Sex: Female Arrives Via: Ambulance Informant: Patient (poor historian), EMS for today's history, son for past history in the last few weeks. ED Provider: Jonathan Brar MD Chief Complaint: Left-sided weakness Impression: As per impressions above Medical Decision Makin-year-old female with a history of dementia, hypertension, dyslipidemia, diabetes, hypothyroidism, weakness amongst others arrives for evaluation of acute onset left-sided weakness with altered mental status and episode of asystole. On arrival patient with complete left-sided flaccidity and left-sided neglect. Bradycardic sinus bradycardia in the 50s. Blood pressure is significantly elevated. Immediately taken to CT for stroke alert which reveals large area of intracranial hemorrhage and mass effect. I immediately discussed with son these findings who makes it clear no heroic measures are wanted. He is agreeable to IV medications primarily for pain and anxiety. I noted we would give her some medicine to try and lower the blood pressure slightly as well. He does not want any intubation, CPR, surgery and would prefer to avoid any transfer. Further family arrived and were all on board with this plan. Patient did have an episode of seizure for which I was called back to bed side after hospitalist already seeing them. Patient was having tonic-clonic seizure primarily the right side with head tilted to the right. She was given 2 mg IV Ativan with resolution of seizure. Following this did have some significant respiratory depression however continues to maintain oxygen. Further questions by family were answered. I did note to family that her probability of survival is quite low and that we could send her to another facility to determine if there are other treatment options however they are not interested in doing so and are focused on making sure she keeps comfortable. External Chart Review by me: Extensive external chart reviewed by me including hospitalization discharge summaries from September 26, 2023. At that time was reported as full code though son makes clear she is no longer a full code. Differential:Infection, hypoglycemia, electrolyte abnormalities, overdose, toxicologic, cardiac sources, intracerebral event, neurologic, trauma, as well as other pathologies. Vital Signs: reviewed and remarkable for HTN Interventions: Hydralazine 5 mg IV, fentanyl IV, Ativan IV, Zofran IV Labs:ED labs Reviewed by me and remarkable for no significant abnormalities Imaging:CT of the head without contrast as per my informal interpretation reveals a large right intracranial hemorrhage with mild midline shift. Confirmed by radiologist. CT angiography of the head and neck. See radiologist note. EKG:As per my interpretation. Indication bradycardia. Sinus bradycardia at 59 bpm QTc of 487. There is no ectopy nor ischemia. When compared EKG of February 21, 2024 there is no significant change. Cardiac/Tele Monitoring: Cardiac Monitoring: An Order was placed for continuous cardiac monitoring. The monitor shows a rate of 55 with a sinus nydia rhythm. Consults:Dr Garvey of [facility] service was consulted I discussed the case with him and they will plan to bring her in for comfort measures only Plan: Disposition:Hospitalization. Condition: Critical History of Present Illness: 88-year-old female arrives for evaluation of altered mental status. At 9:50 AM patient acutely complained of severe headache noted to have complete left-sided weakness. EMS contacted. Noted be bradycardic associated with a 15 to 20-second cardiac pause during which she went completely unresponsive. Since then has recovered. Has periodically moved her left arm and leg slightly but continues to be weak. Reported per EMS she is a full code. No interventions prior to arrival. Patient had a fall several weeks ago apparently for which she may have been seen in the ER. Per history she is on aspirin 81 mg daily without any other blood thinner medications. I had a long discussion with son who makes it clear patient would not want to be intubated or have CPR in the setting. She would not want to be kept alive with any heroic measures including surgery. Patient is complaining of headache. Past Medical History:See Below Home Medications:See Below Allergies: No known drug allergies Vitals:Blood Pressure: 233/90, Pulse 50, RR 12, T 36.9C, O2 91% on RA Physical Exam: GENERAL: Patient is elderly/frail appearing and in mild distress. RESPIRATORY: No dyspnea. Clear to auscultation and equal bilaterally. CARDIOVASCULAR: Bradycardic.No murmur appreciated. GASTROINTESTINAL: Abdomen soft, non-tender, no peritonitis. EXTREMITIES: Normal motion all extremities, no cyanosis, no edema. NEUROLOGIC: Patient is somnolent answers yes no to voice but keeps eyes closed. She has complete flaccidity of left arm and left leg. She has a left-sided neglect as well. SKIN: No rash, no jaundice, no diaphoresis. ED Course: Times/Reassessments: Multiple repeat evaluations the patient throughout the stay. She did have an episode of seizure which was broken with Ativan. Progressively worsening respiratory status and mental status. Critical Care: I have personally spent 45 minutes of critical care time in the direct management of this patient. Large intracranial hemorrhage requiring discussion on level of care and decision to make comfort care measures only.. This was a life/limb threatening event. This 45 minutes is in excess of all separately billable procedures. Jonathan Brar MD Past Med/Surg History Problem List (Updated 03/02/24 @ 18:40 by Jonathan Brar MD) End of life care (Acute) Acute spont intraparenchymal hemorrhage assoc w/ hypertension (Acute) Intracranial hemorrhage (Acute) Hemorrhagic cerebrovascular accident (CVA) Comfort measures only status Confusion (Acute) Generalized weakness (Acute) Dehydration (Acute) Dementia (Acute) Abdominal pain (Acute) Urinary symptom or sign (Acute) Weakness (Acute) Acute cholecystitis (Acute) Acute cholecystitis Hyperthyroidism (Acute) Memory loss Discharge planning issues DVT prophylaxis Dizziness Weight loss Iatrogenic hyperthyroidism (Acute) Elevated troponin (Acute) Orthostasis (Acute) Tachycardia (Acute) Vaginal bleeding 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 Basal cell carcinoma Cystocele with incomplete uterovaginal prolapse Hypercholesteremia Hypertension Diabetes Constipation Ankle fracture (Acute) Surgical History H/O oral surgery Family History Sister Ovarian cancer Denies family history of Breast cancer Colorectal cancer Social History Smoking Status: Never smoker Second Hand Exposure: No; Do You Dip or Chew Tobacco: No; Hx Alcohol Use: No Hx Substance Use: No Hearing Ability: Use of Hearing Aid Finisher Hand Required: No Beliefs That Will Affect Care: Hindu Current Living Situation: Alone Assistive Devices: Cane Allergies Allergies Allergy/AdvReac Type Severity Reaction Status Date / Time No Known Allergies Allergy Verified 03/02/24 11:52 Home Meds Home Medications Medication Instructions Recorded Confirmed aspirin 81 mg tablet,delayed 81 mg PO DAILY 11/29/20 03/02/24 release timolol maleate 0.25 % eye drops 1 drp OPB [facility] 08/25/23 03/02/24 levothyroxine 75 mcg tablet 75 mcg PO DAILY 09/30/23 03/02/24 metoprolol tartrate 50 mg tablet 50 mg PO BID 09/30/23 03/02/24 potassium chloride 10 mEq 10 meq PO BID 09/30/23 03/02/24 tablet,extended release pravastatin 40 mg tablet 40 mg PO DAILY 09/30/23 03/02/24 acetaminophen 500 mg tablet 1,000 mg PO Q8H PRN PAIN/FEVER 10/25/23 03/02/24 diphenhydramine 25 2 tab PO HS PRN SLEEP/PAIN 01/07/24 03/02/24 mg-acetaminophen 500 mg tablet (Tylenol PM Extra Strength) docusate sodium 100 mg capsule 100 mg PO BID 01/07/24 03/02/24 magnesium hydroxide 400 mg/5 mL 30 ml PO DAILY PRN Constipation 01/07/24 03/02/24 oral suspension (Milk of Magnesia) buspirone 5 mg tablet 5 mg PO BID 02/21/24 03/02/24 lorazepam 0.5 mg tablet 0.5 mg PO Q6H PRN Anxiety 02/21/24 03/02/24 lisinopril 10 mg tablet 10 mg PO BID 03/02/24 03/02/24 sertraline 100 mg tablet 100 mg PO DAILY 03/02/24 03/02/24 Results & Data (ED) Vital Signs Vital Signs - 24 hr 03/02/24 10:45 03/02/24 10:59 03/02/24 11:02 Temperature 36.9 C Temperature Source Oral Pulse Rate 57 L 61 Pulse Rate [Apical] 57 L Pulse Rate from SpO2 Sensor Respiratory Rate 18 14 Respiratory Effort / Characteristics Non-Labored Respiratory Depth Normal Blood Pressure 232/88 H Blood Pressure [Left Arm] 229/83 H Blood Pressure Mean 136 Blood Pressure Mean [Left Arm] 131 Blood Pressure Position Lying Pulse Oximetry 90 Oxygen Delivery Method Room Air Sepsis Recent Fever Within 48 Hours No Sepsis New/Unexplained Change in Mental Status Yes Sepsis Action Taken by Nursing No Action Required 03/02/24 11:09 03/02/24 11:09 03/02/24 11:12 Temperature Temperature Source Pulse Rate 53 L 55 L Pulse Rate [Apical] Pulse Rate from SpO2 Sensor 54 L 55 L Respiratory Rate 10 L 18 Respiratory Effort / Characteristics Respiratory Depth Blood Pressure 225/87 H Blood Pressure [Left Arm] Blood Pressure Mean 131 Blood Pressure Mean [Left Arm] Blood Pressure Position Pulse Oximetry 96 98 Oxygen Delivery Method Sepsis Recent Fever Within 48 Hours Sepsis New/Unexplained Change in Mental Status Sepsis Action Taken by Nursing 03/02/24 11:17 03/02/24 11:30 03/02/24 11:30 Temperature Temperature Source Pulse Rate Pulse Rate [Apical] Pulse Rate from SpO2 Sensor Respiratory Rate Respiratory Effort / Characteristics Respiratory Depth Blood Pressure 228/93 H 207/85 H 207/85 H Blood Pressure [Left Arm] Blood Pressure Mean 157 147 147 Blood Pressure Mean [Left Arm] Blood Pressure Position Pulse Oximetry Oxygen Delivery Method Sepsis Recent Fever Within 48 Hours Sepsis New/Unexplained Change in Mental Status Sepsis Action Taken by Nursing 03/02/24 11:30 Temperature Temperature Source Pulse Rate 56 L Pulse Rate [Apical] Pulse Rate from SpO2 Sensor 56 L Respiratory Rate 15 Respiratory Effort / Characteristics Respiratory Depth Blood Pressure Blood Pressure [Left Arm] Blood Pressure Mean Blood Pressure Mean [Left Arm] Blood Pressure Position Pulse Oximetry 95 Oxygen Delivery Method Sepsis Recent Fever Within 48 Hours Sepsis New/Unexplained Change in Mental Status Sepsis Action Taken by Nursing Laboratory Data 03/02/24 11:06 03/02/24 11:06 Lab Results 03/02/24 03/02/24 03/02/24 Range/Units 11:02 11:03 11:03 WBC (4.8-10.8) K/ul RBC (4.20-5.40) M/uL Hgb (12.0-16.0) g/dl Hct (37.0-47.0) % MCV (80.0-100.0) fL MCH (25.0-34.0) pg MCHC (32.0-36.0) g/dL RDW Std Deviation (36.4-46.3) fL RDW Coeff of Bro (11.5-14.5) % Plt Count (130-400) K/uL MPV (9.4-12.4) fL Immature Gran % (Auto) % Neut % (Auto) % Lymph % (Auto) % [place] % (Auto) % Eos % (Auto) % Baso % (Auto) % Neut # (Auto) (1.40-6.50) K/uL Lymph # (Auto) (1.20-3.40) K/uL [place] # (Auto) (0.11-0.59) K/uL Eos # (Auto) (0.00-0.50) K/uL Baso # (Auto) (0.00-0.20) K/uL Immature Gran # (Auto) (0.01-0.20) K/uL PT (9.0-12.0) Seconds INR (0.9-1.1) APTT (21-31) Seconds PTT Ratio Sodium (136-145) mmol/L Potassium (3.5-5.1) mmol/L Chloride (98-107) mmol/L Carbon Dioxide (21-32) mmol/L Anion Gap (3-11) BUN (6-23) mg/dl Creatinine (0.6-1.2) mg/dl Est Cr Clr Drug Dosing ml/min Est GFR ( Amer) ml/min Est GFR (Non-Af Amer) ml/min BUN/Creatinine Ratio (10-20) Glucose (70-99(Fasting)) mg/dl POC Glucose 189 H 189 H (70-99) mg/dl Calcium (8.6-10.3) mg/dl Magnesium (1.7-2.4) mg/dl Total Bilirubin (0.2-1.0) mg/dl AST (13-39) U/L ALT (7-52) U/L Alkaline Phosphatase (34-104) U/L Troponin I High Sens (0-14) pg/ml Total Protein (6.0-8.3) gm/dl Albumin (3.4-5.0) gm/dl Globulin (2.5-4.0) gm/dl Albumin/Globulin Ratio (0.9-2) Blood Type A Positive Antibody Screen NEGATIVE 03/02/24 Range/Units 11:06 WBC 6.20 (4.8-10.8) K/ul RBC 3.83 L (4.20-5.40) M/uL Hgb 11.1 L (12.0-16.0) g/dl Hct 34.7 L (37.0-47.0) % MCV 90.6 (80.0-100.0) fL MCH 29.0 (25.0-34.0) pg MCHC 32.0 (32.0-36.0) g/dL RDW Std Deviation 43.8 (36.4-46.3) fL RDW Coeff of Bro 13.3 (11.5-14.5) % Plt Count 202 (130-400) K/uL MPV 9.7 (9.4-12.4) fL Immature Gran % (Auto) 0.6 % Neut % (Auto) 74.1 % Lymph % (Auto) 17.4 % [place] % (Auto) 6.1 % Eos % (Auto) 1.3 % Baso % (Auto) 0.5 % Neut # (Auto) 4.59 (1.40-6.50) K/uL Lymph # (Auto) 1.08 L (1.20-3.40) K/uL [place] # (Auto) 0.38 (0.11-0.59) K/uL Eos # (Auto) 0.08 (0.00-0.50) K/uL Baso # (Auto) 0.03 (0.00-0.20) K/uL Immature Gran # (Auto) 0.04 (0.01-0.20) K/uL PT 11.7 (9.0-12.0) Seconds INR 1.1 (0.9-1.1) APTT 24 (21-31) Seconds PTT Ratio 0.9 Sodium 135 L (136-145) mmol/L Potassium 3.7 (3.5-5.1) mmol/L Chloride 100 (98-107) mmol/L Carbon Dioxide 31 (21-32) mmol/L Anion Gap 4 (3-11) BUN 18 (6-23) mg/dl Creatinine 0.69 (0.6-1.2) mg/dl Est Cr Clr Drug Dosing 46.0 ml/min Est GFR ( Amer) 90.1 ml/min Est GFR (Non-Af Amer) 77.7 ml/min BUN/Creatinine Ratio 26.1 H (10-20) Glucose 190 H (70-99(Fasting)) mg/dl POC Glucose (70-99) mg/dl Calcium 9.1 (8.6-10.3) mg/dl Magnesium 1.8 (1.7-2.4) mg/dl Total Bilirubin 0.5 (0.2-1.0) mg/dl AST 14 (13-39) U/L ALT 8 (7-52) U/L Alkaline Phosphatase 44 (34-104) U/L Troponin I High Sens 5.2 (0-14) pg/ml Total Protein 5.5 L (6.0-8.3) gm/dl Albumin 3.4 (3.4-5.0) gm/dl Globulin 2.1 L (2.5-4.0) gm/dl Albumin/Globulin Ratio 1.6 (0.9-2) Blood Type Antibody Screen Administered Medications Discontinued Medications Fentanyl Citrate (Fentanyl Citrate Pf 100 Mcg/2 Ml Vial) 25 mcg IV NOW STA Stop: 03/02/24 11:02 Last Admin: 03/02/24 11:05 Dose: 25 mcg Documented By: COTY Hydralazine HCl (Hydralazine Hcl 20 Mg/Ml Vial) 5 mg IV NOW ONE Stop: 03/02/24 11:02 Last Admin: 03/02/24 11:07 Dose: 5 mg Documented By: COTY Ioversol (Optiray 320 125ml) 120 ml IV ONCE ONE Stop: 03/02/24 11:01 Last Admin: 03/02/24 11:00 Dose: 120 ml Documented By: HARSHIL Lorazepam (Lorazepam 1 Mg/1 Ml Syr Ed Inj Use) 2 mg IV ONE STA Stop: 03/02/24 13:00 Last Admin: 03/02/24 13:03 Dose: 2 mg Documented By: BECCA Lorazepam (Lorazepam 1 Mg/1 Ml Syr Ed Inj Use) Confirm Administered Dose 2 mg .ROUTE .STK-MED ONE Stop: 03/02/24 13:00 Last Admin: 03/02/24 13:03 Dose: Not Given Documented By: BECCA Ondansetron HCl (Ondansetron Inj 2 Mg/Ml 2 Ml Vial) 4 mg IV NOW STA Stop: 03/02/24 11:29 Last Admin: 03/02/24 11:31 Dose: 4 mg Documented By: COTY Ondansetron HCl (Ondansetron Inj 2 Mg/Ml 2 Ml Vial) Confirm Administered Dose 4 mg .ROUTE .STK-MED ONE Stop: 03/02/24 11:29 Last Admin: 03/02/24 11:31 Dose: Not Given Documented By: COTY Imaging Data Radiologist's Impression: Head CT 03/02/24 10:46 CT head/brain wo con CLINICAL HISTORY: neuro deficit, acute stroke suspected Technique: Contiguous axial CT images of the head were acquired from the base of the skull to the vertex without intravenous contrast administration. Images were viewed in brain, subdural and bone windows. Automated dose lowering techniques and/or adjustment according to patient size were utilized for this exam. Comparison: None available at the time of this dictation. Findings: There is a prominent intraparenchymal hemorrhage in the right parietotemporal region with extension to the occipital lobe. There is mass effect with effacement of the occipital and temporal horns of the lateral ventricle and approximately 4 mm rightward midline shift. Imaged portions of the paranasal sinuses and mastoid air cells are clear. The orbits appear normal. There are no acute fractures of the calvaria or scalp swelling. Impression: Large right intraparenchymal hemorrhage with surrounding mass effect as above. ACT 112: Negative or not required by law. Electronically signed by: Jose Painter M.D. 03/02/2024 11:01 AM Head CTA 03/02/24 10:46 CT angio neck with con, CT angio head w con CLINICAL HISTORY: neuro deficit, acute stroke suspected TECHNIQUE: CT angiography of the head and neck was performed following intravenous administration of iodinated contrast. Coronal and sagittal MIPS were obtained from the axial data set and were submitted for review. Automated dose lowering techniques and/or adjustment according to patient size were utilized for this examination. All measurements were calculated based on NASCET criteria. Comparison: Comparison is made to CT head 03/02/2024 FINDINGS: CT head: There is no acute intracranial hemorrhage or evidence of acute territorial infarction. No shift of the midline structures, mass effect, or extra-axial abnormalities are shown. Lungs and soft tissues are unremarkable. CTA Neck: A 3 vessel aortic arch is shown. There is no significant atherosclerotic plaque in the aortic arch or the origins of the innominate, left common carotid, and left subclavian arteries. The common carotid, external carotid, cervical segments of the internal carotid arteries, and the cervical segments of the vertebral arteries are patent without hemodynamically significant stenosis. The vertebral arteries are codominant. CTA Head: The anterior and posterior cerebral circulations are patent. No hemodynamically significant stenosis, aneurysm, dissection, or arteriovenous malformation is shown. There is a focus of vascular blush in the posterior aspect of intraparenchymal hemorrhage which may represent a focus of vasospasm versus less likely active extravasation. IMPRESSION: 1. No acute intracranial hemorrhage, evidence of acute territorial infarction, or other acute intracranial disease process. 2. No occlusion, hemodynamically significant stenosis, aneurysm, dissection, or arteriovenous malformation in the major intracranial arteries. 3. There is a large right intraparenchymal hemorrhage with a likely vessel with vasospasm noted within. Assessment of stenosis of the internal carotid arteries is based on NASCET criteria. ACT 112: Negative or not required by law. Electronically signed by: Jose Painter M.D. 03/02/2024 11:24 AM Neck CTA 03/02/24 10:46 CT angio neck with con, CT angio head w con CLINICAL HISTORY: neuro deficit, acute stroke suspected TECHNIQUE: CT angiography of the head and neck was performed following intravenous administration of iodinated contrast. Coronal and sagittal MIPS were obtained from the axial data set and were submitted for review. Automated dose lowering techniques and/or adjustment according to patient size were utilized for this examination. All measurements were calculated based on NASCET criteria. Comparison: Comparison is made to CT head 03/02/2024 FINDINGS: CT head: There is no acute intracranial hemorrhage or evidence of acute territorial infarction. No shift of the midline structures, mass effect, or extra-axial abnormalities are shown. Lungs and soft tissues are unremarkable. CTA Neck: A 3 vessel aortic arch is shown. There is no significant atherosclerotic plaque in the aortic arch or the origins of the innominate, left common carotid, and left subclavian arteries. The common carotid, external carotid, cervical segments of the internal carotid arteries, and the cervical segments of the vertebral arteries are patent without hemodynamically significant stenosis. The vertebral arteries are codominant. CTA Head: The anterior and posterior cerebral circulations are patent. No hemodynamically significant stenosis, aneurysm, dissection, or arteriovenous malformation is shown. There is a focus of vascular blush in the posterior aspect of intraparenchymal hemorrhage which may represent a focus of vasospasm versus less likely active extravasation. IMPRESSION: 1. No acute intracranial hemorrhage, evidence of acute territorial infarction, or other acute intracranial disease process. 2. No occlusion, hemodynamically significant stenosis, aneurysm, dissection, or arteriovenous malformation in the major intracranial arteries. 3. There is a large right intraparenchymal hemorrhage with a likely vessel with vasospasm noted within. Assessment of stenosis of the internal carotid arteries is based on NASCET criteria. ACT 112: Negative or not required by law. Electronically signed by: Jose Painter M.D. 03/02/2024 11:24 AM Discharge Plan Visit Data Chief Complaint: Stroke Alert Stated Complaint: HTN, HEADACHE, STROKE SX ED Provider: Jonathan Brar Discharge Problem: Intracranial hemorrhage, Acute spont intraparenchymal hemorrhage assoc w/ hypertension, End of life care Patient Disposition: Admitted As Inpatient Discharge Instructions Interventions: ED Discharge Assessment Last Done: 03/02/24 13:19
[2024-03-02] MEDS: OPTIRAY 320 125ml IV ONE (11:00)
--- NOTE | 2024-03-02 11:02 | CT Scan Report ---
CT head/brain wo con CLINICAL HISTORY: neuro deficit, acute stroke suspected Technique: Contiguous axial CT images of the head were acquired from the base of the skull to the soumya clint without intravenous contrast administration. Images were viewed in brain, subdural and [facility]. Automated dose lowering techniques and/or adjustment according to patient size were utilized for this exam. Comparison: None available at the time of this dictation. Findings: There is a prominent intraparenchymal hemorrhage in the right parietotemporal region with extension t o the occipital lobe. There is mass effect with effacement of the occipital and temporal horns of the lateral ventricle and approximately 4 mm rightward midline shift. Imaged portions of the paranasal sinuses and mastoid air cells are clear. The orbits appear normal. There are no acute fractures of the calvaria or scalp swelling. Impression: Large right intraparenchymal hemorrhage with surrounding mass effect as above. ACT 112: Negative or not required by law. Electronically signed by: Jose Painter M.D. 03/02/2024 11:01 AM
[2024-03-02] MEDS: fentaNYL citrate PF 100 MCG/2 ML VIAL IV STA (11:05)
[2024-03-02] MEDS: hydrALAZINE HCL 20 MG/ML VIAL IV ONE (11:07)
[2024-03-02 11:16] LABS: Basophils # (auto) 0.03 K/uL (0.00-0.20); Basophils % (auto) 0.5 %; Eosinophils # (auto) 0.08 K/uL (0.00-0.50); Eosinophils % (auto) 1.3 %; Hematocrit (blood only) 34.7 % (37.0-47.0); Hemoglobin 11.1 g/dl (12.0-16.0); Immature Granulocytes # (auto) 0.04 K/uL (0.01-0.20); Immature Granulocytes % (auto) 0.6 %; Lymphocytes # (auto) 1.08 K/uL (1.20-3.40); Lymphocytes % (auto) 17.4 %; Mean Corpuscular Volume 90.6 fL (80.0-100.0); Mean Platelet Volume 9.7 fL (9.4-12.4); Monocytes # (auto) 0.38 K/uL (0.11-0.59); Monocytes % (auto) 6.1 %; Neutrophils # (auto) 4.59 K/uL (1.40-6.50); Neutrophils % (auto) 74.1 %; Platelet Count 202 K/uL (130-400); RDW Coefficient of Variation 13.3 % (11.5-14.5); RDW Standard Deviation 43.8 fL (36.4-46.3); Red Blood Count 3.83 M/uL (4.20-5.40)
--- NOTE | 2024-03-02 11:25 | CT Scan Report ---
CT angio neck with con, CT angio head w con CLINICAL HISTORY: neuro deficit, acute stroke suspected TECHNIQUE: CT angiography of the head and neck was performed following intravenous administration of iodinated contrast. Coronal and sagittal MIPS were obtained from the axial data set and were submitt ed for review. Automated dose lowering techniques and/or adjustment according to patient size were u tilized for this examination. All measurements were calculated based on NASCET criteria. Comparison: Comparison is made to CT head 03/02/2024 FINDINGS: CT head: There is no acute intracranial hemorrhage or evidence of acute territorial infarction. No sh ift of the midline structures, mass effect, or extra-axial abnormalities are shown. Lungs and soft tissues are unremarkable. CTA Neck: A 3 vessel aortic arch is shown. There is no significant atherosclerotic plaque in the aor tic arch or the origins of the innominate, left common carotid, and left subclavian arteries. The co mmon carotid, external carotid, cervical segments of the internal carotid arteries, and the cervical segments of the vertebral arteries are patent without hemodynamically significant stenosis. The verte bral arteries are codominant. CTA Head: The anterior and posterior cerebral circulations are patent. No hemodynamically significan t stenosis, aneurysm, dissection, or arteriovenous malformation is shown. There is a focus of vascula r blush in the posterior aspect of intraparenchymal hemorrhage which may represent a focus of vasospa sm versus less likely active extravasation. IMPRESSION: 1. No acute intracranial hemorrhage, evidence of acute territorial infarction, or other acute intrac ranial disease process. 2. No occlusion, hemodynamically significant stenosis, aneurysm, dissection, or arteriovenous malfor mation in the major intracranial arteries. 3. There is a large right intraparenchymal hemorrhage with a likely vessel with vasospasm noted with in. Assessment of stenosis of the internal carotid arteries is based on NASCET criteria. ACT 112: Negative or not required by law. Electronically signed by: Jose Painter M.D. 03/02/2024 11:24 AM
--- NOTE | 2024-03-02 11:26 | History & Physical Report ---
Date of Service March 02, 2024 Assessment & Plan (1) Comfort measures only status: Plan: Acute onset of headache on the morning of 03/02; left-sided flaccidity Dementia at baseline; hx of prior stroke and takes aspirin 81mg daily, per son Head CT on arrival revealed a large right intraparenchymal hemorrhage with surrounding mass effect Discussed with family at bedside, and they report that patient would not like transfer to a tertiary care facility or surgical intervention Patient's family is okay bringing her in on comfort measures only; DNR/DNI Discontinue all p.o. 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 She presented via EMS on 03/02 for sudden onset of frontal headache with left arm and left leg weakness. By the time EMS arrived, they reported that her left side was completely flaccid. She is unresponsive on arrival. Patient's family is at the bedside (sons and daughter) and after discussion of labs/imaging, they report that she would not want transfer for heroic measures. They confirm that she is DNR/DNI and are okay bring her in on comfort measures only. Patient is hypertensive at 232/88 at time of admission; SpO2 90% on RA. ED course: Fentanyl 25mcg Hydralazine 5 mg IV Zofran 4 mg IV ROS unobtainable at this time Allergies Allergy/AdvReac Type Severity Reaction Status Date / Time No Known Allergies Allergy Verified 03/02/24 11:52 Home Medications Medication Instructions Recorded Confirmed Type aspirin 81 mg tablet,delayed 81 mg PO DAILY 11/29/20 03/02/24 History release timolol maleate 0.25 % eye drops 1 drp OPB [facility] 08/25/23 03/02/24 History levothyroxine 75 mcg tablet 75 mcg PO DAILY 09/30/23 03/02/24 History metoprolol tartrate 50 mg tablet 50 mg PO BID 09/30/23 03/02/24 History potassium chloride 10 mEq 10 meq PO BID 09/30/23 03/02/24 History tablet,extended release pravastatin 40 mg tablet 40 mg PO DAILY 09/30/23 03/02/24 History acetaminophen 500 mg tablet 1,000 mg PO Q8H PRN PAIN/FEVER 10/25/23 03/02/24 History diphenhydramine 25 2 tab PO HS PRN SLEEP/PAIN 01/07/24 03/02/24 History mg-acetaminophen 500 mg tablet (Tylenol PM Extra Strength) docusate sodium 100 mg capsule 100 mg PO BID 01/07/24 03/02/24 History magnesium hydroxide 400 mg/5 mL 30 ml PO DAILY PRN Constipation 01/07/24 03/02/24 History oral suspension (Milk of Magnesia) buspirone 5 mg tablet 5 mg PO BID 02/21/24 03/02/24 History lorazepam 0.5 mg tablet 0.5 mg PO Q6H PRN Anxiety 02/21/24 03/02/24 History lisinopril 10 mg tablet 10 mg PO BID 03/02/24 03/02/24 History sertraline 100 mg tablet 100 mg PO DAILY 03/02/24 03/02/24 History Past Med/Surg History Problem List (Updated 03/02/24 @ 18:40 by Jonathan Brar MD) End of life care (Acute) Acute spont intraparenchymal hemorrhage assoc w/ hypertension (Acute) Intracranial hemorrhage (Acute) Hemorrhagic cerebrovascular accident (CVA) Comfort measures only status Confusion (Acute) Generalized weakness (Acute) Dehydration (Acute) Dementia (Acute) Abdominal pain (Acute) Urinary symptom or sign (Acute) Weakness (Acute) Acute cholecystitis (Acute) Acute cholecystitis Hyperthyroidism (Acute) Memory loss Discharge planning issues DVT prophylaxis Dizziness Weight loss Iatrogenic hyperthyroidism (Acute) Elevated troponin (Acute) Orthostasis (Acute) Tachycardia (Acute) Vaginal bleeding 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 Basal cell carcinoma Cystocele with incomplete uterovaginal prolapse Hypercholesteremia Hypertension Diabetes Constipation Ankle fracture (Acute) Surgical History H/O oral surgery Family History Sister Ovarian cancer Denies family history of Breast cancer Colorectal cancer Social History Smoking Status: Never smoker Second Hand Exposure: No; Do You Dip or Chew Tobacco: No; Hx Alcohol Use: No Hx Substance Use: No Hearing Ability: Use of Hearing Aid Manager Intelligence Required: No Beliefs That Will Affect Care: Orthodoxy Current Living Situation: Alone Assistive Devices: Cane Review of Systems Review of Systems: See HPI above Physical Exam Physical Exam: General: Minimally responsive; no acute distress; non-toxic appearing; frail appearing; patient does not respond to questioning or painful stimuli; SpO2 90% on RA HEENT: normocephalic, atraumatic; no scleral icterus; PERRLA; unable to assess vision and hearing Neck: supple; no lymphadenopathy; trachea midline Skin: warm, dry without signs of tenting; no cyanosis; no rashes, bruising, lesions, or erythema noted CV: chest wall NTP; RRR; S1/S2 normal; no murmurs/rubs/gallops; pulses intact and symmetric at radial, DP, and PT Lungs: no acute respiratory distress; symmetrical chest wall expansion; clear breath sounds across all lung ridley w/o adventitious sounds; no wheezing ABD: Soft, NTP; BS present; no rebound/guarding; no distention MSK: no tics or fasciculations; no edema noted in the LEs b/l, nonerythematous; patient does not demonstrate ability to wiggle toes bilaterally Neuro: Patient does not respond to questioning and some commands; however, patient does open mouth slightly when asked Results & Data Results & Data Vital Signs (Past 12 Hours) Vital Signs Temp Pulse Pulse Resp BP BP Pulse Ox 03/02/24 11:02 61 03/02/24 10:59 36.9 C 57 L 14 232/88 H 90 03/02/24 10:45 57 L 18 229/83 H O2 Del Method 03/02/24 11:02 03/02/24 10:59 Room Air 03/02/24 10:45 Laboratory Results Abnormal lab results 03/02/24 03/02/24 03/02/24 Range/Units 11:03 11:03 11:06 RBC 3.83 L (4.20-5.40) M/uL Hgb 11.1 L (12.0-16.0) g/dl Hct 34.7 L (37.0-47.0) % Lymph # (Auto) 1.08 L (1.20-3.40) K/uL POC Glucose 189 H 189 H (70-99) mg/dl Diagnostic Findings Head CT 03/02/24 10:46 CT head/brain wo con CLINICAL HISTORY: neuro deficit, acute stroke suspected Technique: Contiguous axial CT images of the head were acquired from the base of the skull to the vertex without intravenous contrast administration. Images were viewed in brain, subdural and bone windows. Automated dose lowering techniques and/or adjustment according to patient size were utilized for this exam. Comparison: None available at the time of this dictation. Findings: There is a prominent intraparenchymal hemorrhage in the right parietotemporal region with extension to the occipital lobe. There is mass effect with effacement of the occipital and temporal horns of the lateral ventricle and approximately 4 mm rightward midline shift. Imaged portions of the paranasal sinuses and mastoid air cells are clear. The orbits appear normal. There are no acute fractures of the calvaria or scalp swelling. Impression: Large right intraparenchymal hemorrhage with surrounding mass effect as above. ACT 112: Negative or not required by law. Electronically signed by: Jose Painter M.D. 03/02/2024 11:01 AM Head CTA 03/02/24 10:46 CT angio neck with con, CT angio head w con CLINICAL HISTORY: neuro deficit, acute stroke suspected TECHNIQUE: CT angiography of the head and neck was performed following intravenous administration of iodinated contrast. Coronal and sagittal MIPS were obtained from the axial data set and were submitted for review. Automated dose lowering techniques and/or adjustment according to patient size were utilized for this examination. All measurements were calculated based on NASCET criteria. Comparison: Comparison is made to CT head 03/02/2024 FINDINGS: CT head: There is no acute intracranial hemorrhage or evidence of acute territorial infarction. No shift of the midline structures, mass effect, or extra-axial abnormalities are shown. Lungs and soft tissues are unremarkable. CTA Neck: A 3 vessel aortic arch is shown. There is no significant atherosclerotic plaque in the aortic arch or the origins of the innominate, left common carotid, and left subclavian arteries. The common carotid, external carotid, cervical segments of the internal carotid arteries, and the cervical segments of the vertebral arteries are patent without hemodynamically significant stenosis. The vertebral arteries are codominant. CTA Head: The anterior and posterior cerebral circulations are patent. No hemodynamically significant stenosis, aneurysm, dissection, or arteriovenous malformation is shown. There is a focus of vascular blush in the posterior aspect of intraparenchymal hemorrhage which may represent a focus of vasospasm versus less likely active extravasation. IMPRESSION: 1. No acute intracranial hemorrhage, evidence of acute territorial infarction, or other acute intracranial disease process. 2. No occlusion, hemodynamically significant stenosis, aneurysm, dissection, or arteriovenous malformation in the major intracranial arteries. 3. There is a large right intraparenchymal hemorrhage with a likely vessel with vasospasm noted within. Assessment of stenosis of the internal carotid arteries is based on NASCET criteria. ACT 112: Negative or not required by law. Electronically signed by: Jose Painter M.D. 03/02/2024 11:24 AM Neck CTA 03/02/24 10:46 CT angio neck with con, CT angio head w con CLINICAL HISTORY: neuro deficit, acute stroke suspected TECHNIQUE: CT angiography of the head and neck was performed following intravenous administration of iodinated contrast. Coronal and sagittal MIPS were obtained from the axial data set and were submitted for review. Automated dose lowering techniques and/or adjustment according to patient size were utilized for this examination. All measurements were calculated based on NASCET criteria. Comparison: Comparison is made to CT head 03/02/2024 FINDINGS: CT head: There is no acute intracranial hemorrhage or evidence of acute territorial infarction. No shift of the midline structures, mass effect, or extra-axial abnormalities are shown. Lungs and soft tissues are unremarkable. CTA Neck: A 3 vessel aortic arch is shown. There is no significant atherosclerotic plaque in the aortic arch or the origins of the innominate, left common carotid, and left subclavian arteries. The common carotid, external carotid, cervical segments of the internal carotid arteries, and the cervical segments of the vertebral arteries are patent without hemodynamically significant stenosis. The vertebral arteries are codominant. CTA Head: The anterior and posterior cerebral circulations are patent. No hemodynamically significant stenosis, aneurysm, dissection, or arteriovenous malformation is shown. There is a focus of vascular blush in the posterior aspect of intraparenchymal hemorrhage which may represent a focus of vasospasm versus less likely active extravasation. IMPRESSION: 1. No acute intracranial hemorrhage, evidence of acute territorial infarction, or other acute intracranial disease process. 2. No occlusion, hemodynamically significant stenosis, aneurysm, dissection, or arteriovenous malformation in the major intracranial arteries. 3. There is a large right intraparenchymal hemorrhage with a likely vessel with vasospasm noted within. Assessment of stenosis of the internal carotid arteries is based on NASCET criteria. ACT 112: Negative or not required by law. Electronically signed by: Jose Painter M.D. 03/02/2024 11:24 AM ECG Additional Comments: ECG revealed sinus bradycardia at 59 bpm Code Status & VTE Plan Code Status DNR/DNI VTE Prophylaxis Plan VTE Prophylaxis will be ordered: Yes Supervising Physician Co-Signing Physician Notes I personally saw and examined the patient. I independently reviewed the labs, imaging, problem list, medication list and past medical history. I verified all flores points and agree with Ar Walker PA-C with the following exceptions and/or additions: 88 year old presents with large hemorrhagic stroke. Tonic clonic seizure while in the ER. On discussion with family she has prior dementia, request no transfer to tertiary care center and wish to concentrate on comfort at this time. O/E No current distress, seen after tonic clonic seizure, loud rhonchus breathing A/P Comfort care measures - lorazepam for agitation, morphine for shortness of breath / pain, ondansetron for nausea Seizures - lorazepam 0.5mg IV q8h for prophylaxis, 2mg for active seizure activity PG Care Time/CCT Total # of Minutes Spent Total Time Spent with Patient: Total time spent is greater than 50% in coordination of care (as documented) at patient's floor/unit and/or counseling patient: Coding [place] [address] INT INP/OBS CARE 2/55MIN Patient Type Established Medical Decision Making Moderate Complexity Diagnoses Comfort measures only status Z51.5 Hemorrhagic cerebrovascular accident (CVA) I61.9
[2024-03-02 11:28] LABS: INR 1.1 (0.9-1.1); Partial Thromboplastin Ratio 0.9; Partial Thromboplastin Time 24 Seconds (21-31); Prothrombin Time 11.7 Seconds (9.0-12.0)
[2024-03-02] MEDS: ONDANSETRON INJ 2 MG/ML 2 ML VIAL IV STA (11:31)
[2024-03-02] MEDS: ONDANSETRON INJ 2 MG/ML 2 ML VIAL ONE (11:31)
[2024-03-02 11:36] LABS: Albumin Globulin Ratio 1.6 (0.9-2); Albumin Level 3.4 gm/dl (3.4-5.0); BUN Creatinine Ratio 26.1 (10-20); Bilirubin,Total 0.5 mg/dl (0.2-1.0); Calcium 9.1 mg/dl (8.6-10.3); Est GFR (African American) 90.1 ml/min; Est GFR (Non-African American) 77.7 ml/min; Globulin 2.1 gm/dl (2.5-4.0); Magnesium 1.8 mg/dl (1.7-2.4); Potassium 3.7 mmol/L (3.5-5.1); Total Protein 5.5 gm/dl (6.0-8.3)
[2024-03-02 11:42] LABS: Troponin I High Sensitivity 5.2 pg/ml (0-14)
[2024-03-02] MEDS: LORazepam 1 MG/1 ML SYR ED Inj Use ONE (13:03)
[2024-03-02] MEDS: LORazepam 1 MG/1 ML SYR ED Inj Use IV STA (13:03)
--- NOTE | 2024-03-02 13:03 | Communication Note ---
Notified by nursing staff that patient began to seize at bedside. Patient was reassessed with the ER doctor (Maykel) and hospital medicine doctor (Mare) present. Patient exhibited tremors, and was blinking repeatedly; unresponsive to questions and commands. Lorazepam 2 mg IV to be given to break seizure. Patient's family was informed that this may suppress breathing further. Will reassess intermittently to see if additional Ativan or Keppra is needed. Date of Service: March 02, 2024
[2024-03-02] MEDS ORDERED: ONDANSETRON 4 MG OD TAB SL PRN (14:20)
[2024-03-02] MEDS ORDERED: LORazepam 0.5 MG TAB PO PRN (14:20)
[2024-03-02] MEDS ORDERED: ONDANSETRON INJ 2 MG/ML 2 ML VIAL IV PRN (14:20)
[2024-03-02] MEDS ORDERED: GLYCOPYRROLATE 0.2 MG/ML VIAL IV PRN (14:20)
[2024-03-02] MEDS ORDERED: LORazepam 0.5 MG in SYRINGE 0.25 ML IV PRN ×2 (14:20→21:00)
[2024-03-02] MEDS: LORazepam 2 MG in SYRINGE 1 ML IV PRN (21:13)
[2024-03-02] MEDS: LORazepam 0.5 MG in SYRINGE 0.25 ML IV SCH (21:28)
--- NOTE | 2024-03-02 22:08 | Electrocardiogram Report ---
Test Reason : Blood Pressure : / mmHG Vent. Rate : 059 BPM Atrial Rate : 059 BPM P-R Int : 190 ms QRS Dur : 090 ms QT Int : 492 ms P-R-T Axes : 075 068 055 degrees QTc Int : 487 ms Sinus bradycardia Nonspecific ST abnormality Prolonged QT Abnormal ECG When compared with ECG of 21-FEB-2024 11:48, QT has lengthened Confirmed by Hal Bauer ([id number]) on 03/02/2024 10:08:00 PM Referred By: Confirmed By:Hal Bauer
[2024-03-03] MEDS: MoRPHine SULFATE 2 MG/ML CARP IV PRN (07:58)
--- NOTE | 2024-03-03 11:25 | Hospitalist Progress Note ---
Date of Service March 03, 2024 Assessment & Plan (1) Comfort measures only status: Plan: Presented with acute onset of headache on the morning of 03/02; left-sided flaccidity, Hypertensive emergency with BP of 232/88 on admission. - Dementia at baseline; hx of prior stroke and takes aspirin 81mg daily, per son - Head CT on arrival revealed a large right intraparenchymal hemorrhage with surrounding mass effect. Brain compression due to hemorrhagic CVA. - Discussed with family at bedside, and they report that patient would not like transfer to a tertiary care facility or surgical intervention > Patient's family is okay admitting her on comfort measures only; DNR/DNI - Discontinue all home p.o. 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 > GRAIN ELEVATOR MOTOR STARTER meds converted to SL to determine if that provides adequate symptom control. (2) Hemorrhagic cerebrovascular accident (CVA): Plan: Head CT on arrival revealed a large right intraparenchymal hemorrhage with surrounding mass effect. Plan Updated multiple family members at bedside Discussed GRAIN ELEVATOR MOTOR STARTER options with case management Ordered SL meds Comfort measures only status CODE STATUS: DNR/DNI Admission and Anticipated Discharge Date Admission Date: March 02, 2024 Subjective Patient seen and evaluated at bedside with multiple family members present. Patient was asleep with snoring respirations, no respiratory distress noted. She was nonresponsive to verbal or painful stimuli. I had a thorough discussion with the patient's family in regards to options moving forward, including remaining in the hospital, returning to [facility] with hospice services, or going home with family with hospice services. They asked to speak with case management for further details. At the time my evaluation, patient did not appear to be in any distress or pain, and I reassured the family of this. No ad ditional questions or complaints at this time. Physical Exam Physical Exam: General: No acute distress, nondiaphoretic, well-developed, well-nourished. Skin: The skin was without rashes, erythema, edema, or bruising. Cardiac: Regular rate and rhythm without murmurs gallops or rubs. Pulm: No respiratory distress. Loud rhonchus breathing with snoring respirations. 100% on 2 L. Abdominal: Soft, nondistended, nontender. Bowel sounds present. No rebound/guarding. Neuro: Patient does not respond to verbal or painful stimuli. Results & Data Results & Data Vital Signs (Past 12 Hours) Vital Signs O2 Del Method O2 Flow Rate 03/03/24 08:28 Nasal Cannula 2 PG Care Time/CCT Total # of Minutes Spent Total Time Spent with Patient: Total time spent is greater than 50% in coordination of care (as documented) at patient's floor/unit and/or counseling patient: Coding Level of Care Code 68596 SUB INP/OBS CARE 3/50MIN Diagnoses Comfort measures only status Z51.5 Hemorrhagic cerebrovascular accident (CVA) I61.9
[2024-03-03] MEDS: LORazepam 0.5 MG TAB SL SCH (13:35)
[2024-03-04] MEDS: MoRPHine SULFATE 10 MG/0.5 ML UDP PO PRN (04:04)
--- NOTE | 2024-03-04 08:53 | Hospitalist Progress Note ---
Date of Service March 04, 2024 Assessment & Plan (1) Comfort measures only status: Plan: Presented with acute onset of headache on the morning of 03/02; left-sided flaccidity, Hypertensive emergency with BP of 232/88 on admission. - Dementia at baseline; hx of prior stroke and takes aspirin 81mg daily, per son - Head CT on arrival revealed a large right intraparenchymal hemorrhage with surrounding mass effect. Brain compression due to hemorrhagic CVA. - Discussed with family at bedside, and they report that patient would not like transfer to a tertiary care facility or surgical intervention > Patient's family is okay admitting her on comfort measures only; DNR/DNI - Discontinue all home p.o. 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 > PARTS COUNTER SALES PERSON meds converted to SL to determine if that provides adequate symptom control. (2) Hemorrhagic cerebrovascular accident (CVA): Plan: Head CT on arrival revealed a large right intraparenchymal hemorrhage with surrounding mass effect. Plan Updated multiple family members at bedside Discussed PARTS COUNTER SALES PERSON options with case management Comfort measures only status CODE STATUS: DNR/DNI Admission and Anticipated Discharge Date Admission Date: March 02, 2024 Physical Exam Physical Exam: General: No acute distress, nondiaphoretic, well-developed, well-nourished. Skin: The skin was without rashes, erythema, edema, or bruising. Cardiac: Regular rate and rhythm without murmurs gallops or rubs. Pulm: No respiratory distress. Loud rhonchus breathing with snoring respirations. 100% on 2 L. Abdominal: Soft, nondistended, nontender. Bowel sounds present. No alvarez ound/guarding. Benitez in place, draining clear yellow urine. Neuro: Patient does not respond to verbal or painful stimuli. PG Care Time/CCT Total # of Minutes Spent Total Time Spent with Patient: Total time spent is greater than 50% in coordination of care (as documented) at patient's floor/unit and/or counseling patient: Coding Diagnoses Comfort measures only status Z51.5 Hemorrhagic cerebrovascular accident (CVA) I61.9
--- NOTE | 2024-03-04 17:10 | Discharge Summary ---
Discharge Summary Date of Service March 04, 2024 Principal Dx & Hospital Course #1 = Principal Diagnosis (1) Comfort measures only status: Presented with acute onset of headache on the morning of 03/02; left-sided flaccidity, Hypertensive emergency with BP of 232/88 on admission. - Dementia at baseline; hx of prior stroke and takes aspirin 81mg daily, per son - Head CT on arrival revealed a large right intraparenchymal hemorrhage with surrounding mass effect. Brain compression due to hemorrhagic CVA. - Discussed with family, and they report that patient would not like transfer to a tertiary care facility or surgical intervention > Patient's family is okay admitting her on comfort measures only; DNR/DNI - Discontinued all home p.o. medications - [employer] status - Discharged back to [facility] with hospice services 03/04/2024 (2) Hemorrhagic cerebrovascular accident (CVA): Head CT on arrival revealed a large right intraparenchymal hemorrhage with surrounding mass effect. Plan Comfort measures only status CODE STATUS: DNR/DNI Notes For Next Care Provider Patient discharged back to [facility] with hospice services after large right intraparenchymal hemorrhagic CVA with surrounding mass effect and brain kapil kari. Medication Changes From Visit All home meds stopped. Hospitalist meds ordered. Admission HPI Per Admitting Provider Meghan is an 88yo female with PMH of diabetes, HTN, BCC, dementia, orthostasis, hypothyroidism, memory loss, and confusion. She presented via EMS on 03/02 for sudden onset of frontal headache with left arm and left leg weakness. By the time EMS arrived, they reported that her left side was completely flaccid. She is unresponsive on arrival. Patient's family is at the bedside (sons and daughter) and after discussion of labs/imaging, they report that she would not want transfer for heroic measures. They confirm that she is DNR/DNI and are okay bring her in on comfort measures only. Patient is hypertensive at 232/88 at time of admission; SpO2 90% on RA. ED course: Fentanyl 25mcg Hydralazine 5 mg IV Zofran 4 mg IV ROS unobtainable at this time Admission Exam Per Admitting Provider General: Minimally responsive; no acute distress; non-toxic appearing; frail a ppearing; patient does not respond to questioning or painful stimuli; SpO2 90% on RA HEENT: normocephalic, atraumatic; no scleral icterus; PERRLA; unable to assess vision and hearing Neck: supple; no lymphadenopathy; trachea midline Skin: warm, dry without signs of tenting; no cyanosis; no rashes, bruising, lesions, or erythema noted CV: chest wall NTP; RRR; S1/S2 normal; no murmurs/rubs/gallops; pulses intact and symmetric at radial, DP, and PT Lungs: no acute respiratory distress; symmetrical chest wall expansion; clear breath sounds across all lung ridley w/o adventitious sounds; no wheezing ABD: Soft, NTP; BS present; no rebound/guarding; no distention MSK: no tics or fasciculations; no edema noted in the LEs b/l, nonerythematous; patient does not demonstrate ability to wiggle toes bilaterally Neuro: Patient does not respond to questioning and some commands; however, patient does open mouth slightly when asked Discharge Exam General: No acute distress, nondiaphoretic, well-developed, well-nourished. Skin: The skin was without rashes, erythema, edema, or bruising. Cardiac: Regular rate and rhythm without murmurs gallops or rubs. Pulm: No respiratory distress. Loud rhonchus breathing with snoring respirations. 100% on 2 L. Abdominal: Soft, nondistended, nontender. Bowel sounds present. No rebound/guarding. Benitez in place, draining clear yellow urine. Neuro: Patient does not respond to verbal or painful stimuli. Updated Medication List Medication Instructions Recorded Confirmed Type acetaminophen 650 mg rectal 650 mg OR Q6H PRN mild pain or 03/04/24 Rx suppository fever #4 ea bisacodyl 10 mg rectal suppository 10 mg OR DAILY PRN constipation #1 03/04/24 Rx (Dulcolax (bisacodyl)) ea haloperidol lactate 2 mg/mL oral 1 mg (0.5 mL) PO Q4H PRN agitation 03/04/24 Rx concentrate or nausea and vomiting #15 mL hyoscyamine sulfate 0.125 mg 0.125 mg PO Q6H PRN secretions #14 03/04/24 Rx sublingual tablet tabs lorazepam 0.5 mg tablet 0.5 mg sublingual Q8H #7 tabs 03/04/24 Rx morphine concentrate 100 mg/5 mL 10 mg (0.5 mL) PO Q4H PRN pain or 03/04/24 Rx (20 mg/mL) oral solution shortness of breath #15 mL prochlorperazine maleate 10 mg 10 mg PO Q6H PRN nausea and 03/04/24 Rx tablet vomiting #7 tabs Hospital Stay Data Consultations 03/02/24 11:33 ED Decision to Admit Stat Diagnostic Imagining Performed Laboratory Results WBC 6.20 K/ul (4.8-10.8) 03/02/24 11:06 RBC 3.83 M/uL (4.20-5.40) L 03/02/24 11:06 Hgb 11.1 g/dl (12.0-16.0) L 03/02/24 11:06 Hct 34.7 % (37.0-47.0) L 03/02/24 11:06 MCV 90.6 fL (80.0-100.0) 03/02/24 11:06 MCH 29.0 pg (25.0-34.0) 03/02/24 11:06 MCHC 32.0 g/dL (32.0-36.0) 03/02/24 11:06 RDW Std Deviation 43.8 fL (36.4-46.3) 03/02/24 11:06 RDW Coeff of Bro 13.3 % (11.5-14.5) 03/02/24 11:06 Plt Count 202 K/uL (130-400) 03/02/24 11:06 MPV 9.7 fL (9.4-12.4) 03/02/24 11:06 Immature Gran % (Auto) 0.6 % 03/02/24 11:06 Neut % (Auto) 74.1 % 03/02/24 11:06 Lymph % (Auto) 17.4 % 03/02/24 11:06 [place] % (Auto) 6.1 % 03/02/24 11:06 Eos % (Auto) 1.3 % 03/02/24 11:06 Baso % (Auto) 0.5 % 03/02/24 11:06 Neut # (Auto) 4.59 K/uL (1.40-6.50) 03/02/24 11:06 Lymph # (Auto) 1.08 K/uL (1.20-3.40) L 03/02/24 11:06 [place] # (Auto) 0.38 K/uL (0.11-0.59) 03/02/24 11:06 Eos # (Auto) 0.08 K/uL (0.00-0.50) 03/02/24 11:06 Baso # (Auto) 0.03 K/uL (0.00-0.20) 03/02/24 11:06 Immature Gran # (Auto) 0.04 K/uL (0.01-0.20) 03/02/24 11:06 PT 11.7 Seconds (9.0-12.0) 03/02/24 11:06 INR 1.1 (0.9-1.1) 03/02/24 11:06 APTT 24 Seconds (21-31) 03/02/24 11:06 PTT Ratio 0.9 03/02/24 11:06 Sodium 135 mmol/L (136-145) L 03/02/24 11:06 Potassium 3.7 mmol/L (3.5-5.1) 03/02/24 11:06 Chloride 100 mmol/L (98-107) 03/02/24 11:06 Carbon Dioxide 31 mmol/L (21-32) 03/02/24 11:06 Anion Gap 4 (3-11) 03/02/24 11:06 BUN 18 mg/dl (6-23) 03/02/24 11:06 Creatinine 0.69 mg/dl (0.6-1.2) 03/02/24 11:06 Est Cr Clr Drug Dosing 46.0 ml/min 03/02/24 11:06 Est GFR ( Amer) 90.1 ml/min 03/02/24 11:06 Est GFR (Non-Af Amer) 77.7 ml/min 03/02/24 11:06 BUN/Creatinine Ratio 26.1 (10-20) H 03/02/24 11:06 Glucose 190 mg/dl (70-99(Fasting)) H 03/02/24 11:06 POC Glucose 189 mg/dl (70-99) H 03/02/24 11:03 POC Glucose 189 mg/dl (70-99) H 03/02/24 11:03 Calcium 9.1 mg/dl (8.6-10.3) 03/02/24 11:06 Magnesium 1.8 mg/dl (1.7-2.4) 03/02/24 11:06 Total Bilirubin 0.5 mg/dl (0.2-1.0) 03/02/24 11:06 AST 14 U/L (13-39) 03/02/24 11:06 ALT 8 U/L (7-52) 03/02/24 11:06 Alkaline Phosphatase 44 U/L (34-104) 03/02/24 11:06 Troponin I High Sens 5.2 pg/ml (0-14) 03/02/24 11:06 Total Protein 5.5 gm/dl (6.0-8.3) L 03/02/24 11:06 Albumin 3.4 gm/dl (3.4-5.0) 03/02/24 11:06 Globulin 2.1 gm/dl (2.5-4.0) L 03/02/24 11:06 Albumin/Globulin Ratio 1.6 (0.9-2) 03/02/24 11:06 Blood Type A Positive 03/02/24 11:02 Antibody Screen NEGATIVE 03/02/24 11:[address] 03/02/24 10:46 CT head/brain wo con CLINICAL HISTORY: neuro deficit, acute stroke suspected Technique: Contiguous axial CT images of the head were acquired from the base of the skull to the vertex without intravenous contrast administration. Images were viewed in brain, subdural and bone windows. Automated dose lowering techniques and/or adjustment according to patient size were utilized for this exam. Comparison: None available at the time of this dictation. Findings: There is a prominent intraparenchymal hemorrhage in the right parietotemporal region with extension to the occipital lobe. There is mass effect with effacement of the occipital and temporal horns of the lateral ventricle and approximately 4 mm rightward midline shift. Imaged portions of the paranasal sinuses and mastoid air cells are clear. The orbits appear normal. There are no acute fractures of the calvaria or scalp swelling. Impression: Large right intraparenchymal hemorrhage with surrounding mass effect as above. ACT 112: Negative or not required by law. Electronically signed by: Jose Painter M.D. 03/02/2024 11:01 AM Head CTA 03/02/24 10:46 CT angio neck with con, CT angio head w con CLINICAL HISTORY: neuro deficit, acute stroke suspected TECHNIQUE: CT angiography of the head and neck was performed following intr avenous administration of iodinated contrast. Coronal and sagittal MIPS were obtained from the axial data set and were submitted for review. Automated dose lowering techniques and/or adjustment according to patient size were utilized for this examination. All measurements were calculated based on NASCET criteria. Comparison: Comparison is made to CT head 03/02/2024 FINDINGS: CT head: There is no acute intracranial hemorrhage or evidence of acute territorial infarction. No shift of the midline structures, mass effect, or extra-axial abnormalities are shown. Lungs and soft tissues are unremarkable. CTA Neck: A 3 vessel aortic arch is shown. There is no significant atherosclerotic plaque in the aortic arch or the origins of the innominate, left common carotid, and left subclavian arteries. The common carotid, external carotid, cervical segments of the internal carotid arteries, and the cervical segments of the vertebral arteries are patent without hemodynamically significan t stenosis. The vertebral arteries are codominant. CTA Head: The anterior and posterior cerebral circulations are patent. No hemodynamically significant stenosis, aneurysm, dissection, or arteriovenous malformation is shown. There is a focus of vascular blush in the posterior aspect of intraparenchymal hemorrhage which may represent a focus of vasospasm versus less likely active extravasation. IMPRESSION: 1. No acute intracranial hemorrhage, evidence of acute territorial infarction, or other acute intracranial disease process. 2. No occlusion, hemodynamically significant stenosis, aneurysm, dissection, or arteriovenous malformation in the major intracranial arteries. 3. There is a large right intraparenchymal hemorrhage with a likely vessel with vasospasm noted within. Assessment of stenosis of the internal carotid arteries is based on NASCET criteria. ACT 112: Negative or not required by law. Electronically signed by: Jose Painter M.D. 03/02/2024 11:24 AM Neck CTA 03/02/24 10:46 CT angio neck with con, CT angio head w con CLINICAL HISTORY: neuro deficit, acute stroke suspected TECHNIQUE: CT angiography of the head and neck was performed following intravenous administration of iodinated contrast. Coronal and sagittal MIPS were obtained from the axial data set and were submitted for review. Automated dose lowering techniques and/or adjustment according to patient size were utilized for this examination. All measurements were calculated based on NASCET criteria. Comparison: Comparison is made to CT head 03/02/2024 FINDINGS: CT head: There is no acute intracranial hemorrhage or evidence of acute territorial infarction. No shift of the midline structures, mass effect, or extra-axial abnormalities are shown. Lungs and soft tissues are unremarkable. CTA Neck: A 3 vessel aortic arch is shown. There is no significant atherosclerotic plaque in the aortic arch or the origins of the innominate, left common carotid, and left subclavian arteries. The common carotid, external carotid, cervical segments of the internal carotid arteries, and the cervical segments of the vertebral arteries are patent without hemodynamically significant stenosis. The vertebral arteries are codominant. CTA Head: The anterior and posterior cerebral circulations are patent. No hemodynamically significant stenosis, aneurysm, dissection, or arteriovenous malformation is shown. There is a focus of vascular blush in the posterior aspect of intraparenchymal hemorrhage which may represent a focus of vasospasm versus less likely active extravasation. IMPRESSION: 1. No acute intracranial hemorrhage, evidence of acute territorial infarction, or other acute intracranial disease process. 2. No occlusion, hemodynamically significant stenosis, aneurysm, dissection, or arteriovenous malformation in the major intracranial arteries. 3. There is a large right intraparenchymal hemorrhage with a likely vessel with vasospasm noted within. Assessment of stenosis of the internal carotid arteries is based on NASCET criteria. ACT 112: Negative or not required by law. Electronically signed by: Jose Painter M.D. 03/02/2024 11:24 AM Pending Results Patient Have Any Pending Studies at Discharge: No Discharge Instructions Given to Patient (Per Discharging Provider) FOR [facility]OSPICE: Mrs. Rodríguez presented to [facility] ER on 03/02 after acute onset of headache, left-sided flaccidity, an hypertensive emergency on the morning of 03/02. Head CT on arrival revealed a large right intraparenchymal hemorrhage with surrounding mass effect with brain compression. Decision was made at that time to transition to comfort measures only status. All home oral medications have been discontinued. Orders have been sent to the pharmacy for hospice medications. Total Time Total Time Spent Total Time Spent (In Minutes): Greater than 30 minutes spent completing this discharge process including direct patient care, medication reconciliation, documentation, review of labs and images, and coordination of care. Coding Level of Care Code 90633 INP/OBS DISCH >30 MIN Diagnoses Comfort measures only status Z51.5 Hemorrhagic cerebrovascular accident (CVA) I61.9
== END 2024-03-04 15:13 | disposition hospice, inpatient (51) | DRG 951 ==
LOC: ED 10:37 → PACUINP 11:45 → SUATTDRO 11:45 → 3E 13:19